=== PATIENT | female | born 1945 | race Caucasian/White ===

== ENCOUNTER 2017-03-20 19:46 | Inpatient (IN) | payer BC, OTHER ==
[~2017-03-20] VITALS: Ht 153.7 cm; Wt 57.1 kg
[2017-03-20] MEDS ORDERED: SODIUM CHLORIDE 0.9% 1000ML 500 ML IV STA (20:08)
[2017-03-20] MEDS ORDERED: DILTIAZEM BOLUS / DRIP IV STA (20:08)
--- NOTE | 2017-03-20 20:17 | EMERGENCY ROOM VISIT NOTE ---
History Report prepared by Lew: Charanjit Yeh Under the Supervision of: Dr. Ed Milton M.D. First contact with patient: 20:01 Chief Complaint: CARDIAC ASSESSMENT Stated Complaint: A FIB/A FLUTTER-FAINT History of Present Illness The patient is a 71 year old female who presents to the Emergency Room with complaints of worsening cardiac problems that began recently. Patient states she has a "sensation" in her upper chest that began this morning. She states that the "sensation" has been waxing and waning but has been more present lately. She has associated symptoms of dizziness and shortness of breath. She states that the shortness of breath goes away when she gets up and moves around. Patient denies having any chest pain. Patient denies a history of heart attacks. Patient adds that she had a cardiac ablation procedure done 2 days ago due to a history of atrial fibrillation and atrial flutter. She states the procedure was done at [facility]. Patient states she had no noted problems with the procedure. She adds that she has had problems with atrial fibrillation and atrial flutter for the past 5 years. She states she currently takes Xarelto , Norvasc, and a half dose of thyroid medication. She adds that she has not taken Rythmol for 1 day. She denies having a current PCP or welcome desk agent in the area. Patient adds that she and her are moving to [place] this week. Patient denies any medication allergies. Source of History: patient Onset: Recent Position: chest Timing: worsening Associated Symptoms: + SOB Note: Patient has dizziness. She denies chest pain. Review of Systems See HPI for pertinent positives & negatives. A total of 10 systems reviewed and were otherwise negative. Past Medical & Surgical Medical Problems: (1) Tachycardia Surgical Problems: (1) Status post ablation of atrial fibrillation Family History No pertinent family medical history. Social History Smoking Status: Former Smoker Current/Historical Medications Scheduled Amlodipine (Norvasc), 5 MG PO DAILY Methimazole (Methimazole ), 2.5 MG PO BID Rivaroxaban (Xarelto), 1 TAB PO QPM Allergies Coded Allergies: BEE STING (Unverified Allergy, Intermediate, ., 03/20/17) Physical Exam Vital Signs Date Time Temp Pulse Resp B/P (MAP) Pulse Ox O2 Delivery O2 Flow Rate FiO2 03/20/17 22:29 103 123/87 03/20/17 21:55 102 16 127/75 03/20/17 21:09 118 18 124/81 03/20/17 20:41 0 03/20/17 20:40 85 03/20/17 20:40 84 16 119/69 03/20/17 20:14 106 18 136/62 98 Room Air 03/20/17 20:12 98 Room Air 03/20/17 19:51 36.8 131 18 158/73 97 Room Air Physical Exam GENERAL: Patient is in no acute distress. HEENT: No acute trauma, normocephalic atraumatic, mucous membranes moist, no nasal congestion, no scleral icterus. NECK: No stridor, no adenopathy, no meningismus, trachea is midline. LUNGS: Clear to auscultation bilaterally, no wheeze, no rhonchi, breath sounds equal. HEART: Irregular rhythm, tachycardia, no murmurs ABDOMEN: Soft, nontender, bowel sounds positive, no hernias, no peritonitis. EXTREMITIES: No cyanosis or edema, full range of motion of all the joints without pain or difficulty, no signs for acute trauma. NEUROLOGIC: Oriented x 3, no acute motor or sensory deficits, no focal weakness. SKIN: No rash, no jaundice, no diaphoresis. Medical Decision & Procedures ER Provider Diagnostic Interpretation: Radiology results as stated below per my review and radiologist interpretation: CHEST ONE VIEW PORTABLE HISTORY: EVALUATE ALTERED MENTAL STATUS/WEAKNESS COMPARISON: None. FINDINGS: The lungs are clear. Cardiac silhouette is normal in size. No pleural effusions. No pneumothorax. 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 IMPRESSION: No acute process. Electronically signed by: Petar Tena M.D. 03/20/2017 8:39 PM Laboratory Results 03/20/17 20:05 Red Blood Count 3.64, Mean Corpuscular Volume 99.2, Mean Corpuscular Hemoglobin 34.3, Mean Corpuscular Hemoglobin Concent 34.6, Mean Platelet Volume 10.9, Neutrophils (%) (Auto) 60.0, Lymphocytes (%) (Auto) 23.7, Monocytes (%) (Auto) 13.0, Eosinophils (%) (Auto) 2.8, Basophils (%) (Auto) 0.2, Neutrophils # (Auto ) 6.73, Lymphocytes # (Auto) 2.65, Monocytes # (Auto) 1.46, Eosinophils # (Auto ) 0.31, Basophils # (Auto) 0.02 03/20/17 20:05 Test 03/20/17 20:05 White Blood Count 11.20 K/uL (4.8-10.8) Red Blood Count 3.64 M/uL (4.2-5.4) Hemoglobin 12.5 g/dL (12.0-16.0) Hematocrit 36.1 % (37-47) Mean Corpuscular Volume 99.2 fL (80-100) Mean Corpuscular Hemoglobin 34.3 pg (25-34) Mean Corpuscular Hemoglobin Concent 34.6 g/dl (32-36) Platelet Count 187 K/uL (130-400) Mean Platelet Volume 10.9 fL (7.4-10.4) Neutrophils (%) (Auto) 60.0 % Lymphocytes (%) (Auto) 23.7 % Monocytes (%) (Auto) 13.0 % Eosinophils (%) (Auto) 2.8 % Basophils (%) (Auto) 0.2 % Neutrophils # (Auto) 6.73 K/uL (1.4-6.5) Lymphocytes # (Auto) 2.65 K/uL (1.2-3.4) Monocytes # (Auto) 1.46 K/uL (0.11-0.59) Eosinophils # (Auto) 0.31 K/uL (0-0.5) Basophils # (Auto) 0.02 K/uL (0-0.2) RDW Standard Deviation 45.5 fL (36.4-46.3) RDW Coefficient of Variation 12.6 % (11.5-14.5) Immature Granulocyte % (Auto) 0.3 % Immature Granulocyte # (Auto) 0.03 K/uL (0.00-0.02) Prothrombin Time 13.5 SECONDS (9.0-12.0) Prothromb Time International Ratio 1.3 (0.9-1.1) Activated Partial Thromboplast Time 34.3 SECONDS (21.0-31.0) Partial Thromboplastin Ratio 1.3 Anion Gap 7.0 mmol/L (3-11) Est Creatinine Clear Calc Drug Dose 66.0 ml/min Estimated GFR () 105.3 Estimated GFR (Non- 90.9 BUN/Creatinine Ratio 11.6 (10-20) Calcium Level 8.9 mg/dl (8.5-10.1) Magnesium Level 1.9 mg/dl (1.8-2.4) Total Bilirubin 0.5 mg/dl (0.2-1) Aspartate Amino Transf (AST/SGOT) 33 U/L (15-37) Alanine Aminotransferase (ALT/SGPT) 23 U/L (12-78) Alkaline Phosphatase 100 U/L (45-117) Troponin I 1.380 ng/ml (0-0.045) Total Protein 7.0 gm/dl (6.4-8.2) Albumin 3.6 gm/dl (3.4-5.0) Globulin 3.4 gm/dl (2.5-4.0) Albumin/Globulin Ratio 1.1 (0.9-2) Thyroid Stimulating Hormone (TSH) 0.496 uIu/ml (0.300-4.500) Free Thyroxine 1.34 ng/dl (0.80-1.60) Laboratory results reviewed by me. Medications Administered Medications (Trade) Dose Ordered Sig/Carmelo Route Start Time Stop Time Status Last Admin Dose Admin Sodium Chloride 500 ml @ 999 mls/hr Q31M STAT IV 03/20/17 20:08 03/20/17 20:38 DC 03/20/17 20:39 999 MLS/HR Diltiazem HCl (Cardizem Inj) 10 mg TODAY@2030 IV 03/20/17 20:30 03/20/17 20:31 DC 03/20/17 20:37 10 MG Diltiazem HCl 125 mg/Dextrose 125 ml @ 0 mls/hr Q0M PRN IV 03/20/17 20:30 04/19/17 20:29 03/20/17 20:38 5 MLS/HR ECG Indication: tachycardia Rate (beats per minute): 103 Rhythm: atrial fibrillation, atrial flutter Findings: nonspecific-ST abn, no acute ischemic change ED Course 2004: The patient was evaluated in room C6. A complete history and physical exam was performed. 2007: Sodium Chloride 500 ml @ 999 mls/hr IV, Diltiazem HCl 125mg/Dextrose 125ml @ 0mls/hr, Diltazem HCl 10mg IV 2024: Monitor exchange clerk documented a several second pause on the monitor consistent with asystole. 2049: I reassessed the patient and updated her on her findings. I informed that she will be moved to another room to put spacer pads on. I added that I will be calling her welcome desk agent as well. 2214: Upon reexamination the patient will be further evaluated. I discussed results and treatment plan with the patient. She verbalizes agreement and understanding. I spoke with Dr. Low of [facility]. We discussed the patient's results and findings. The patient will be evaluated by Dr. Low for further management. Medical Decision Differential diagnosis includes A. fib or a flutter, SVT, dysrhythmia, NC, electrolyte imbalance, dehydration or anemia. The patient presents with palpitations. She appeared to be in intermittent A. fib/A flutter on the monitor. There is a mild leukocytosis, this could be consistent with infection or possibly the stress of her situation. No concerning anemia. No significant electrolyte abnormality, kidney failure or hepatitis. The patient appears to be in a euthyroid state. Chest film does not show pneumonia or pneumothorax. EKG shows intermittent A. fib/A flutter with a rapid rate, no acute ischemia. Cardiac enzyme testing 1 did show an elevation, this could be consistent with cardiac injury or strain or consistent with just the recent ablation performed 2 days ago. The patient was tachycardic and symptomatic. She was given a bolus of IV diltiazem and then placed on a diltiazem drip. She developed long periods of asystole on this medication although, she remained awake. The medication was halted. She continued to have some asystolic pauses but they were shorter in length when the medication was no longer being infused. I discussed the case with cardiology. Transfer back to [place] was suggested. I spoke with the welcome desk agent at [place]. He did accept the patient but there were no beds at that hospital for the foreseeable future. A hospital stay at our facility was recommended for now. I discussed everything with the patient. I talked again with our cardiology services. I spoke with the on-call hospitalist as well. Admission/observation was advised. The case management team has been involved. The patient was aggressively managed. She has been doing well despite the intermittent A. fib/A flutter. We will hold on any rate lowering medications for now as she does worse with them. The patient will likely require a pacemaker in the near future. Apparently, this has already been discussed with her. She was having asystolic pauses at times in the past and, as result, did have a difficult time tolerating rate controlling medications. Medication Reconcilliation Current Medication List: was personally reviewed by me Blood Pressure Screening Patient's blood pressure: Elevated blood pressure Blood pressure disposition: Elevated BP felt to be situational Consults Time Called: 2058 Consulting Physician: Dr. Drew - [employer] Returned Call: [phone] Discussed the patient's case. Dr. Drew recommended stopping the Cardizem drip. He added that the patient should be transferred to [place] for hospitalization. Additional Consults: Time Called: 2144 Consulted Physician: [place] [employer] Returned Call: [phone] Additional Comments: Discussed the patient's case. The patient will be evaluated for further management. Time Called: 2157 Consulted Physician: Dr. Rajendra Chinchilla [employer] Returned Call: 2199 Additional Comments: Discussed the patient's case. The patient will be evaluated for further management. Additional Consults: 2209: Dr. Devante Enriquez Hospitalist Comments: Discussed the patient's case. The patient will be evaluated for further management. Impression Primary Impression: Atrial fibrillation Additional Impressions: Atrial flutter Bradyarrhythmia Elevated troponin Critical Care I have personally spent greater than 30 minutes of critical care time in the direct management of this patient. This includes bedside care, interpretation of diagnostic studies and testing, discussion with consultants, the patient, and family members, and other required patient management activities. This 30 minutes is in excess of all separately billable procedures. Scribe Attestation The scribe's documentation has been prepared under my direction and personally reviewed by me in its entirety. I confirm that the note above accurately reflects all work, treatment, procedures, and medical decision making performed by me. Departure Information Dispostion Being Evaluated By Hospitalist Referrals Peterson Chang M.D. (PCP) Forms IMPORTANT VISIT INFORMATION Patient Instructions My [facility] Problem Qualifiers
[2017-03-20 20:24] LABS: BASO % 0.2 %; BASO ABS # 0.02 K/uL (0-0.2); EOS % 2.8 %; EOS ABS # 0.31 K/uL (0-0.5); HEMATOCRIT 36.1 % (37-47); HEMOGLOBIN 12.5 g/dL (12.0-16.0); IG# 0.03 K/uL (0.00-0.02); LYMPH % 23.7 %; LYMPH ABS # 2.65 K/uL (1.2-3.4); MEAN CELL VOLUME 99.2 fL (80-100); MEAN CORPUSCULAR HEMOGLOBIN 34.3 pg (25-34); MEAN CORPUSCULAR HGB CONC 34.6 g/dl (32-36); MEAN PLATELET VOLUME 10.9 fL (7.4-10.4); MONO ABS # 1.46 K/uL (0.11-0.59); NEUT ABS # 6.73 K/uL (1.4-6.5); PLATELET COUNT 187 K/uL (130-400); RED CELL DISTRIBUTION WIDTH CV 12.6 % (11.5-14.5); RED CELL DISTRIBUTION WIDTH SD 45.5 fL (36.4-46.3)
[2017-03-20] MEDS ORDERED: DILTIAZEM HCL INJ 125 MG in DEXTROSE 5% 100ML IV PRN (20:30)
[2017-03-20] MEDS ORDERED: DILTIAZEM HCL 5 MG/ML 5 ML VIAL BOLUS/OMNI IV SCH (20:30)
--- NOTE | 2017-03-20 20:40 | DIAGNOSTIC IMAGING REPORT ---
CHEST ONE VIEW PORTABLE HISTORY: EVALUATE ALTERED MENTAL STATUS/WEAKNESS COMPARISON: None. FINDINGS: The lungs are clear. Cardiac silhouette is normal in size. No pleural effusions. No pneumothorax. 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 IMPRESSION: No acute process. Electronically signed by: Petar Tena M.D. 03/20/2017 8:39 PM Dictated Date/Time: 03/20/2017 8:39 PM
[2017-03-20 20:41] LABS: ALBUMIN 3.6 gm/dl (3.4-5.0); CALCIUM 8.9 mg/dl (8.5-10.1); CREATININE 0.63 mg/dl (0.60-1.20); POTASSIUM 3.8 mmol/L (3.5-5.1)
[2017-03-20 20:43] LABS: INR 1.3 (0.9-1.1); PTT PATIENT 34.3 SECONDS (21.0-31.0)
[2017-03-20] MEDS ORDERED: AMLO-110 PO (21:11)
[2017-03-20] MEDS ORDERED: RIVA1TAB PO (21:11)
[2017-03-20] MEDS ORDERED: METH-589 PO (21:11)
--- NOTE | 2017-03-20 22:33 | History and Physical ---
History & Physical Date & Time of Service: Mar 20, 2017 at 22:32 Chief Complaint: A Fib/A Flutter-Faint Primary Care Physician: Peterson Chang M.D. History of Present Illness Source: patient This is a 71 year old Female who has generally received medical care with [facility] who presents to the ED on 03/20/17 2 days after ablation for history of atrial fibrillation/flutter which was performed by Dr. Stewart Matamoros ) who presents with symptoms of "sensation" in her upper chest that began in the morning and associated symptoms of dizziness and shortness of breath. Found to be in afib RVR. with heart rate 131 on presentation. EKG shows intermittent A. fib/A flutter with a rapid rate, no acute ischemia. Troponin elevated 1.38 possibly due to cardiac injury or strain or recent ablation.Patient was given Diltiazem IV 10 mg x 1 and then Diltizaem drip with heart rate decreasing however was noted to have pauses on the telemetry monitoring but patient remained awake. There were attempts made for hospital transfer to [place] but transfer could not be done due to lack of hospital beds ED physician then contacted [facility] piano case and bench assembler Dr. Nagi Drew who advised that patient should not receive further pharmacological interventions with the heart rate at this time. ED physician communicated with hospitalist physician that parameters to intervene would be if the heart rate was over 150 beats per minute or if patient has chest pain. When patient assessed by hospitalist for admission, patient was asymptomatic but reports that she previously she was feeling palpitations when her rate was very elevated. During this assessment patient's heart rate was still irregular but low 100s beats per minute. She was not in distress and speaking comfortably on room air followed directions of the physical exam. She states she currently takes Xarelto, Norvasc, RYTHMOL (propafenone hydrochloride), Tapazole 2.5 mg BID Social History Smoking Status: Former Smoker Allergies Coded Allergies: BEE STING (Unverified Allergy, Intermediate, ., 03/20/17) Home Medications Scheduled Amlodipine (Norvasc), 5 MG PO DAILY Methimazole (Methimazole ), 2.5 MG PO BID Rivaroxaban (Xarelto), 1 TAB PO QPM Review of Systems Constitutional: No fever Eyes: No worsening of vision, No eye pain, No redness, No diplopia ENT: No hearing loss, No nasal symptoms, No sore throat, No trouble swallowing Respiratory: No cough, No sputum, No shortness of breath Cardiovascular: + palpitations, No chest pain, No edema Abdomen: No pain, No nausea, No vomiting Musculoskeletal: No joint pain, No muscle pain, No swelling, No calf pain Genitourinary - Female: No dysuria Neurologic: No paralysis, No numbness/tingling Psychiatric: No substance abuse Endocrine: No fatigue Hematologic / Lymphatic: No night sweats Integumentary: No rash, No itch Physical Exam Vital Signs Date Time Temp Pulse Resp B/P (MAP) Pulse Ox O2 Delivery O2 Flow Rate FiO2 03/20/17 22:29 103 123/87 03/20/17 21:55 102 16 127/75 03/20/17 21:09 118 18 124/81 03/20/17 20:41 0 03/20/17 20:40 85 03/20/17 20:40 84 16 119/69 03/20/17 20:14 106 18 136/62 98 Room Air 03/20/17 20:12 98 Room Air 03/20/17 19:51 36.8 131 18 158/73 97 Room Air General Appearance: no apparent distress Head: normocephalic, atraumatic Eyes: normal inspection, EOMI, sclerae normal ENT: normal ENT inspection, hearing grossly normal, pharynx normal Neck: supple, no adenopathy, thyroid normal, no JVD, trachea midline Respiratory/Chest: chest non-tender, lungs clear, normal breath sounds, no respiratory distress, no accessory muscle use Cardiovascular: no edema, normal peripheral pulses, + tachycardia, + irregularly irregular Abdomen/GI: normal bowel sounds, non tender, soft, no organomegaly, no pulsatile mass Back: normal inspection, no muscle spasm, normal range of motion Extremities/Musculoskelatal: normal inspection, no calf tenderness, no pedal edema, normal range of motion, non-tender Neurologic/Psych: no motor/sensory deficits, alert, normal mood/affect, oriented x 3 Skin: normal color, warm/dry, no rash Diagnostics Laboratory Results Results Past 24 Hours Test 03/20/17 20:05 Range/Units White Blood Count 11.20 4.8-10.8 K/uL Red Blood Count 3.64 4.2-5.4 M/uL Hemoglobin 12.5 12.0-16.0 g/dL Hematocrit 36.1 37-47 % Mean Corpuscular Volume 99.2 80-100 fL Mean Corpuscular Hemoglobin 34.3 25-34 pg Mean Corpuscular Hemoglobin Concent 34.6 32-36 g/dl Platelet Count 187 130-400 K/uL Mean Platelet Volume 10.9 7.4-10.4 fL Neutrophils (%) (Auto) 60.0 % Lymphocytes (%) (Auto) 23.7 % Monocytes (%) (Auto) 13.0 % Eosinophils (%) (Auto) 2.8 % Basophils (%) (Auto) 0.2 % Neutrophils # (Auto) 6.73 1.4-6.5 K/uL Lymphocytes # (Auto) 2.65 1.2-3.4 K/uL Monocytes # (Auto) 1.46 0.11-0.59 K/uL Eosinophils # (Auto) 0.31 0-0.5 K/uL Basophils # (Auto) 0.02 0-0.2 K/uL RDW Standard Deviation 45.5 36.4-46.3 fL RDW Coefficient of Variation 12.6 11.5-14.5 % Immature Granulocyte % (Auto) 0.3 % Immature Granulocyte # (Auto) 0.03 0.00-0.02 K/uL Prothrombin Time 13.5 9.0-12.0 SECONDS Prothromb Time International Ratio 1.3 0.9-1.1 Activated Partial Thromboplast Time 34.3 21.0-31.0 SECONDS Partial Thromboplastin Ratio 1.3 Sodium Level 132 136-145 mmol/L Potassium Level 3.8 3.5-5.1 mmol/L Chloride Level 99 98-107 mmol/L Carbon Dioxide Level 26 21-32 mmol/L Anion Gap 7.0 3-11 mmol/L Blood Urea Nitrogen 7 7-18 mg/dl Creatinine 0.63 0.60-1.20 mg/dl Est Creatinine Clear Calc Drug Dose 66.0 ml/min Estimated GFR () 105.3 Estimated GFR (Non- 90.9 BUN/Creatinine Ratio 11.6 10-20 Random Glucose 143 70-99 mg/dl Calcium Level 8.9 8.5-10.1 mg/dl Magnesium Level 1.9 1.8-2.4 mg/dl Total Bilirubin 0.5 0.2-1 mg/dl Aspartate Amino Transf (AST/SGOT) 33 15-37 U/L Alanine Aminotransferase (ALT/SGPT) 23 12-78 U/L Alkaline Phosphatase 100 45-117 U/L Troponin I 1.380 0-0.045 ng/ml Total Protein 7.0 6.4-8.2 gm/dl Albumin 3.6 3.4-5.0 gm/dl Globulin 3.4 2.5-4.0 gm/dl Albumin/Globulin Ratio 1.1 0.9-2 Thyroid Stimulating Hormone (TSH) 0.496 0.300-4.500 uIu/ml Free Thyroxine 1.34 0.80-1.60 ng/dl Diagnostic Radiology CXR: The lungs are clear. Cardiac silhouette is normal in size. No pleural effusions. No pneumothorax. 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 Stewart Matamoros ) who presents with symptoms of "sensation" in her upper chest that began in the morning and associated symptoms of dizziness and shortness of breath. Found to be in afib RVR. with heart rate 131 on presentation. EKG shows intermittent A. fib/A flutter with a rapid rate, no acute ischemia. Troponin elevated 1.38 possibly due to cardiac injury or strain or recent ablation.Patient was given Diltiazem IV 10 mg x 1 and then Diltizaem drip with heart rate decreasing however was noted to have pauses on the telemetry monitoring but patient remained awake. There were attempts made for hospital transfer to [place] but transfer could not be done due to lack of hospital beds ED physician then contacted [facility] piano case and bench assembler Dr. Nagi Drew who advised that patient should not receive further pharmacological interventions with the heart rate at this time. ED physician communicated with hospitalist physician that parameters to intervene would be if the heart rate was over 150 beats per minute or if patient has chest pain. When patient assessed by hospitalist for admission, patient was asymptomatic but reports that she previously she was feeling palpitations when her rate was very elevated. During this assessment patient's heart rate was still irregular but low 100s beats per minute. She was not in distress and speaking comfortably on room air followed directions of the physical exam. -hold rate control medications for now, hold outpatient RYTHMOL (propafenone hydrochloride) for now -telemetry monitoring -initial troponin elevated possibly due to cardiac injury or strain or recent ablation, trend troponin -further cardiology recommendations appreciated -NPO after midnight except medications/ice chips/sips in case cardiology interventions needed such as pace maker -hold home dose of Xarelto for now as possibly need pacemaker placement -continue home dose Norvasc for blood pressure -continue Tapazole 2.5 mg BID for history of hyperthyroidism, TSH is 0.496 and free T4 1.34, will check total T4 but thyroid labs appear generally within acceptable reference ranges of normal -denies drug allergies Full Code Dr. Stewart Matamoros ([phone]) [facility] Cardiology Dr. Peterson Mccollum [facility] primary acre family member [phone] Level of Care Telemetry Resuscitation Status FULL RESUSCITATION
[2017-03-20 23:15] VITALS: BP 135/72; PULSE 103; TEMP 36.9; O2SAT 96; Ht 153.7 cm; Wt 57.1 kg
[2017-03-21] VITALS (8 sets, daily range): BP systolic 104–137; BP diastolic 66–71; PULSE 71–113; TEMP 36.6–37.3; O2SAT 94–97
[2017-03-21 02:26] LABS: BASO % 0.2 %; BASO ABS # 0.02 K/uL (0-0.2); EOS % 4.4 %; HEMATOCRIT 34.7 % (37-47); HEMOGLOBIN 11.8 g/dL (12.0-16.0); IG# 0.02 K/uL (0.00-0.02); LYMPH % 28.1 %; LYMPH ABS # 2.58 K/uL (1.2-3.4); MEAN CELL VOLUME 99.4 fL (80-100); MEAN CORPUSCULAR HEMOGLOBIN 33.8 pg (25-34); MEAN PLATELET VOLUME 10.4 fL (7.4-10.4); MONO % 16.8 %; MONO ABS # 1.54 K/uL (0.11-0.59); NEUT % 50.3 %; NEUT ABS # 4.63 K/uL (1.4-6.5); PLATELET COUNT 165 K/uL (130-400); RED CELL DISTRIBUTION WIDTH CV 12.5 % (11.5-14.5); RED CELL DISTRIBUTION WIDTH SD 45.4 fL (36.4-46.3); WHITE BLOOD COUNT 9.19 K/uL (4.8-10.8)
[2017-03-21 03:17] LABS: ALBUMIN 3.1 gm/dl (3.4-5.0); CALCIUM 8.3 mg/dl (8.5-10.1); CREATININE 0.58 mg/dl (0.60-1.20); POTASSIUM 3.9 mmol/L (3.5-5.1); TOTAL PROTEIN 6.1 gm/dl (6.4-8.2)
[2017-03-21] MEDS: METHIMAZOLE 5 MG TAB PO SCH ×2 (08:12→20:10)
[2017-03-21] MEDS ORDERED: PNEUMOCOCCAL POLYSACCHARIDES 25 MCG/0.5 ML VIAL/SYR IM. ONE (09:00)
[2017-03-21] MEDS ORDERED: PNEUMOCOCCAL ADMINISTRATION CHARGE ONE (09:00)
[2017-03-21] MEDS ORDERED: ENOXAPARIN 40 MG/0.4 ML SYR SQ SCH (09:00)
[2017-03-21] MEDS: AMLODIPINE BESYLATE 5 MG TAB PO SCH ×2 (09:00→20:10)
--- NOTE | 2017-03-21 09:01 | ECHOCARDIOGRAM REPORT ---
*NOTICE TO RECEIVING REPUBLICAN AGENCY This information is strictly Confidential and protected under [place] law. [place] law prohibits you from making any further disclosure of this information unless further disclosure is expressly permitted by the written consent of the person to whom it pertains or is authorized by law. A general authorization for the release of medical or other information is not sufficient for this purpose. Hospital accepts no responsibility if the information is made available to any other person, INCLUDING THE PATIENT. Interpretation Summary * Name: ILEANA MOYER I Study Date: 03/21/2017 06:21 AM BP: 128/68 mmHg * Patient Location: 2\S\S229\S\1 HR: 101 * : 1945 (M/d/y) Gender: Female Height: 61 in * Age: 71 yrs Ethnicity: CA Weight: 119 lb * Ordering Physician: Matias Low * Referring Physician: Self, Referred * Performed By: Yadi Mcmillan RCS * * Reason For Study: A-FIB / TACHY S/P ABLATION * BSA: 1.5 m2 * -- Conclusions -- * Normal LV chamber size with moderate concentric LVH. * Normal LV systolic function, EF 60-65%. * No segmental left ventricular wall motion abnormalities are noted. * Aortic valve sclerosis mild, without significant aortic valvular stenosis. * Borderline left atrial enlargement. * Small, loculated anterior pericardial effusion adjacent to the right atrium. No hemodynamic significance. * Intact interatrial septum. Procedure Details * A complete two-dimensional transthoracic echocardiogram was performed (2D, M-mode, Doppler and color flow Doppler). * A saline contrast injection was performed to assess for cardiac shunting. * The injection was performed through an intravenous line in the right arm. * The attending nurse who injected the saline contrast was TRISTAN DAVISON, RN. * A total of 30 cc of agitated saline was given. Left Ventricle * The left ventricle is normal in size. * There is moderate concentric left ventricular hypertrophy. * Left ventricular systolic function is normal. * No segmental left ventricular wall motion abnormalities are noted. * Ejection Fraction = 60-65%. * The left ventricular wall motion is normal at rest. Right Ventricle * The right ventricular cavity size is normal (basal dimension <4.2 cm in right ventricular apical 4-chamber view). * The right ventricular systolic function is normal as assessed by tricuspid annular plane systolic excursion (TAPSE) (normal >1.5 cm). Atria * Borderline left atrial enlargement. * Right atrial size is normal. * No ASD detected; PFO is not assessed. Mitral Valve * The mitral valve is normal in structure and function. Tricuspid Valve * The tricuspid valve is normal in structure and function. Aortic Valve * The aortic valve is trileaflet. * Aortic valve sclerosis mild, without significant aortic valvular stenosis. * There is no significant aortic regurgitation. Pulmonic Valve * The pulmonary valve is not well seen, but the Doppler examination is normal without significant regurgitation or stenosis. Pericardium/Pleural * Small, loculated anterior pericardial effusion adjacent to the right atrium. No hemodynamic significance. MMode 2D Measurements and Calculations IVSd 1.1 cm IVSs 1.7 cm LVIDd 3.5 cm LVIDs 1.8 cm LVPWd 1.2 cm LVPWs 1.6 cm IVS/LVPW 0.88 FS 47.5 % EDV(Teich) 50.0 ml ESV(Teich) 10.1 ml EF(Teich) 79.9 % EDV(cubed) 42.0 ml ESV(cubed) 6.1 ml EF(cubed) 85.5 % % IVS thick 60.7 % % LVPW thick 30.3 % LV mass(C)d 126.6 grams LV mass(C)dI 83.6 grams/m\S\2 LV mass(C)s 109.8 grams LV mass(C)sI 72.5 grams/m\S\2 SV(Teich) 40.0 ml SI(Teich) 26.4 ml/m\S\2 SV(cubed) 35.9 ml SI(cubed) 23.7 ml/m\S\2 Ao root diam 2.5 cm Ao root area 4.8 cm\S\2 ACS 1.6 cm LA dimension 2.9 cm LA/Ao 1.2 LVOT diam 1.9 cm LVOT area 2.8 cm\S\2 LVAd ap4 26.2 cm\S\2 LVLd ap4 7.2 cm EDV(MOD-sp4) 77.3 ml EDV(sp4-el) 80.7 ml LVAs ap4 17.7 cm\S\2 LVLs ap4 6.5 cm ESV(MOD-sp4) 40.8 ml ESV(sp4-el) 40.7 ml EF(MOD-sp4) 47.2 % EF(sp4-el) 49.6 % LVAd ap2 21.6 cm\S\2 LVLd ap2 6.7 cm EDV(MOD-sp2) 57.8 ml EDV(sp2-el) 59.3 ml LVAs ap2 15.5 cm\S\2 LVLs ap2 6.1 cm ESV(MOD-sp2) 32.4 ml ESV(sp2-el) 33.6 ml EF(MOD-sp2) 43.8 % EF(sp2-el) 43.4 % LVLd %diff -8.57 % EDV(MOD-bp) 69.7 ml LVLs %diff -6.69 % ESV(MOD-bp) 37.0 ml EF(MOD-bp) 46.9 % SV(MOD-sp4) 36.5 ml SI(MOD-sp4) 24.1 ml/m\S\2 SV(MOD-sp2) 25.3 ml SI(MOD-sp2) 16.7 ml/m\S\2 SV(MOD-bp) 32.7 ml SI(MOD-bp) 21.6 ml/m\S\2 SV(sp4-el) 40.0 ml SI(sp4-el) 26.4 ml/m\S\2 SV(sp2-el) 25.7 ml SI(sp2-el) 17.0 ml/m\S\2 Doppler Measurements and Calculations MV E max george 132.1 cm/sec MV A max george 78.2 cm/sec MV E/A 1.7 MV P1/2t max george 167.4 cm/sec MV P1/2t 81.7 msec MVA(P1/2t) 2.7 cm\S\2 MV dec slope 600.1 cm/sec\S\2 MV dec time 0.19 sec Ao V2 max 178.5 cm/sec Ao max PG 12.7 mmHg Ao max PG (full) 8.0 mmHg SONDRA(V,A) 1.7 cm\S\2 SONDRA(V,D) 1.7 cm\S\2 LV V1 max PG 4.7 mmHg LV V1 max 108.9 cm/sec PA V2 max 94.0 cm/sec PA max PG 3.5 mmHg TR max george 272.6 cm/sec
--- NOTE | 2017-03-21 10:49 | CARDIOLOGY CONSULTATION ---
DATE OF CONSULTATION: 03/21/2017 CONSULTATION REQUESTED BY: Dr. Low. REASON FOR CONSULTATION: Tachybrady syndrome. HISTORY OF PRESENT ILLNESS: Mrs. Durham is a very pleasant 71-year-old woman who just recently moved to [facility]. She was previously following with a neighborhood worker in [place], Dr. Stewart Matamoros for a history of atrial fibrillation and atrial flutter. She recently underwent an atrial fibrillation and pulmonary vein isolation on the of this month. The day after the ablation, she started feeling back to her normal self and started having recurrent bouts of palpitations, feeling her heart racing and pauses. When she has a pause, she can feel it and she states she feels a little lightheaded and a little anxious for a moment and then gets up and walks around. Again, she gets slightly lightheaded with it, but no dizziness and she has never syncopized with it. She was told by her previous neighborhood worker that should the ablation not be successful, she would likely require pacemaker placement, but she was holding off as long she could. Upon presentation to the Emergency Department, she was rather tachycardic and she was given IV diltiazem with significant bradycardia and sinus pauses. Initially, the thought was to transfer the patient to [place], but again she is now establishing care here in the [facility] and no beds were available at [place], so she was admitted to telemetry overnight. Overnight, her rates continued to fluctuate anywhere between sinus rhythm, sinus tachycardia, atrial fibrillation and significant sinus pauses up to 3 seconds. Otherwise, she states that she is feeling well. Denies any chest pain, shortness of breath, dizziness or syncope. She states that she is very good about taking her medications at home. PAST SURGICAL HISTORY: Recent pulmonary vein isolation on 03/18/2017. PAST MEDICAL ILLNESSES: 1. Tachybrady syndrome. 2. Paroxysmal atrial fibrillation and flutter, status post ablation and failed trials of Rythmol. 3. Urinary issues. 4. Hypertension. FAMILY HISTORY: Noncontributory. SOCIAL HISTORY: The patient is a former smoker, quit 8 years ago. Drinks occasional alcohol. Denies any recreational drug use. She is . She lives at home with her . He is currently undergoing chemotherapy and they are moving from the [facility] to [facility] to down size. 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 She has 2 biological children, who are in good health. REVIEW OF SYSTEMS: As per HPI. All other review of systems reviewed and negative at this time. ALLERGIES: No known drug allergies. SHE IS ALLERGIC TO BEE STINGS. MEDICATIONS AN OUTPATIENT: 1. Amlodipine 5 mg daily. 2. Xarelto 20 mg daily. 3. Methimazole 2.5 mg b.i.d. PHYSICAL EXAMINATION: VITALS: Temperature 36.7, pulse 111, respiratory rate 12, and blood pressure 104/71. GENERAL: Awake, alert, and oriented x3, in no acute distress. HEENT: Normocephalic and atraumatic. Pupils are equal, round, and reactive to light and accommodation. Extraocular muscles intact. Anicteric sclerae. Moist mucous membranes. NECK: No JVD. No bruit. CARDIOVASCULAR: Irregularly irregular and fast. Unable to appreciate murmurs, rubs or gallops. PULMONARY: Clear to auscultation bilaterally. No rales, rhonchi, or wheezing. ABDOMEN: Bowel sounds x4. Soft. No rebound, guarding, or tenderness. No organomegaly. EXTREMITIES: No clubbing, cyanosis or edema. +2 pedal pulses bilaterally. SKIN: Warm and dry. TEST RESULTS: Normal LV chamber size with moderate concentric LVH, normal LV systolic function, EF 60%-65%. No segmental left ventricular wall motion abnormalities were noted. Mild aortic valve sclerosis without stenosis. Borderline left atrial enlargement. Small loculated anterior pericardial effusion adjacent to the right atrium without hemodynamic significance. Intact interatrial septum. Review of telemetry monitoring shows again sinus rhythm, sinus tachycardia, paroxysmal atrial fibrillation and sinus pauses up to 3 seconds. LABORATORY STUDIES OF SIGNIFICANCE: TSH of 0.5 with a free T4 of 1.3. Sodium 139, potassium 3.9, BUN 6, and creatinine 0.6. Troponin of 1.38 followed by 1.21. IMPRESSION: 1. Tachybrady syndrome. 2. Paroxysmal atrial fibrillation with rapid ventricular response. 3. Mildly elevated troponin level due to tachycardia. 4. History of failed pulmonary vein isolation. RECOMMENDATIONS: It was my pleasure to see Mrs. Durham in consultation today. The pathophysiology of tachybrady syndrome was discussed with the patient at great lengths today as well as the pros and cons of treatment options. She states that she is already prepared herself for pacemaker. She notes that she has been, it told has been necessary in the past and is now willing to proceed. So at this point, we will hold all AV dori blocking agents given her response and significant pauses. She will be made n.p.o. after midnight and her Xarelto will be held today and we will plan for dual chamber permanent pacemaker placement in the a.m. She will be made n.p.o. after midnight. After the permanent pacemaker placement, she will then be titrated further on medications to help reduce the elevated rates. In the meantime, we can expect her rates to be elevated, but again no AV dori blocking agents should be given.
--- NOTE | 2017-03-21 13:05 | Progress Note ---
Internal Med Progress Note Date of Service: Mar 21, 2017. Provider Documentation: SUBJECTIVE: The patient was seen and examined Admitted with Palpitation secondary to AF with RVR S/P recent failed Ablation therapy for AF Denies any symptoms this AM OBJECTIVE: Vital Signs-as noted below Exam: General-Npo distress at rest Eyes-normal ENT-normal Neck-supple Lungs-Clear to ausucltate bilaterally Heart-Regular Abdomen-Benign,no masses,bowel sound present Extremities-No edema Neuro-AAOx3 Lab data as noted below. ASSESSMENT & PLAN: This is a 71 year old Female who has generally received medical care with [facility] who presents to the ED on 03/20/17 2 days after ablation for history of atrial fibrillation/flutter which was performed by Dr. Stewart Matamoros ([phone]) who presents with symptoms of "sensation" in her upper chest that began in the morning and associated symptoms of dizziness and shortness of breath. Found to be in afib RVR. with heart rate 131 on presentation. EKG shows intermittent A. fib/A flutter with a rapid rate, no acute ischemia. Troponin elevated 1.38 possibly due to cardiac injury or strain or recent ablation. Paroxysmal AF with RVR ,Failed Ablation Therapy Bradycardia secondary to use of any rate lowering medications Likely has Tachy Adam syndrome Appreciate cardiology input Hold any current Antiarrhythmic therapy and Xarelto PPM placement tomorrow Avoid giving any antiarrhythmic drugs NPO after midnight except medications/ice chips/sips in case cardiology interventions needed such as pace maker Increase Troponin -initial troponin elevated possibly due to cardiac injury or strain or recent ablation, trend troponin -Likely secondary to LV strain, -Doubt any ACS HTN -continue home dose Norvasc for blood pressure -BP is reasonably controlled Hyperthyroidism -continue Tapazole 2.5 mg BID for history of hyperthyroidism, TSH is 0.496 and free T4 1.34, will check total T4 but thyroid labs appear generally within acceptable reference ranges of normal DVT prophylaxis On Xarelto -on hold now Full Code Dr. Stewart Matamoros ([phone]) [facility] Cardiology Dr. Peterson Mccollum [facility] primary acre family member [phone] Vital Signs: Date Time Temp Pulse Resp B/P (MAP) Pulse Ox O2 Delivery O2 Flow Rate FiO2 03/21/17 12:17 97 Room Air 03/21/17 11:30 36.9 113 19 111/68 (82) 97 Room Air 03/21/17 08:00 Room Air 03/21/17 07:53 36.7 111 19 104/71 (82) 95 Room Air 03/21/17 04:00 Room Air 03/21/17 03:29 36.8 75 15 128/68 (88) 97 Room Air 03/21/17 00:00 Room Air 03/20/17 23:15 36.9 103 20 135/72 96 Room Air 03/20/17 23:06 77 14 134/77 95 03/20/17 22:29 103 123/87 03/20/17 21:55 102 16 127/75 03/20/17 21:09 118 18 124/81 03/20/17 20:41 0 03/20/17 20:40 85 03/20/17 20:40 84 16 119/69 03/20/17 20:14 106 18 136/62 98 Room Air 03/20/17 20:12 98 Room Air 03/20/17 19:51 36.8 131 18 158/73 97 Room Air Lab Results: Results Past 24 Hours Test 03/20/17 20:05 03/21/17 02:19 Range/Units White Blood Count 11.20 9.19 4.8-10.8 K/uL Red Blood Count 3.64 3.49 4.2-5.4 M/uL Hemoglobin 12.5 11.8 12.0-16.0 g/dL Hematocrit 36.1 34.7 37-47 % Mean Corpuscular Volume 99.2 99.4 80-100 fL Mean Corpuscular Hemoglobin 34.3 33.8 25-34 pg Mean Corpuscular Hemoglobin Concent 34.6 34.0 32-36 g/dl Platelet Count 187 165 130-400 K/uL Mean Platelet Volume 10.9 10.4 7.4-10.4 fL Neutrophils (%) (Auto) 60.0 50.3 % Lymphocytes (%) (Auto) 23.7 28.1 % Monocytes (%) (Auto) 13.0 16.8 % Eosinophils (%) (Auto) 2.8 4.4 % Basophils (%) (Auto) 0.2 0.2 % Neutrophils # (Auto) 6.73 4.63 1.4-6.5 K/uL Lymphocytes # (Auto) 2.65 2.58 1.2-3.4 K/uL Monocytes # (Auto) 1.46 1.54 0.11-0.59 K/uL Eosinophils # (Auto) 0.31 0.40 0-0.5 K/uL Basophils # (Auto) 0.02 0.02 0-0.2 K/uL RDW Standard Deviation 45.5 45.4 36.4-46.3 fL RDW Coefficient of Variation 12.6 12.5 11.5-14.5 % Immature Granulocyte % (Auto) 0.3 0.2 % Immature Granulocyte # (Auto) 0.03 0.02 0.00-0.02 K/uL Prothrombin Time 13.5 9.0-12.0 SECONDS Prothromb Time International Ratio 1.3 0.9-1.1 Activated Partial Thromboplast Time 34.3 21.0-31.0 SECONDS Partial Thromboplastin Ratio 1.3 Sodium Level 132 139 136-145 mmol/L Potassium Level 3.8 3.9 3.5-5.1 mmol/L Chloride Level 99 104 98-107 mmol/L Carbon Dioxide Level 26 30 21-32 mmol/L Anion Gap 7.0 5.0 3-11 mmol/L Blood Urea Nitrogen 7 6 7-18 mg/dl Creatinine 0.63 0.58 0.60-1.20 mg/dl Est Creatinine Clear Calc Drug Dose 66.0 72.5 ml/min Estimated GFR () 105.3 108.2 Estimated GFR (Non- 90.9 93.4 BUN/Creatinine Ratio 11.6 10.5 10-20 Random Glucose 143 96 70-99 mg/dl Calcium Level 8.9 8.3 8.5-10.1 mg/dl Magnesium Level 1.9 1.9 1.8-2.4 mg/dl Total Bilirubin 0.5 0.6 0.2-1 mg/dl Aspartate Amino Transf (AST/SGOT) 33 25 15-37 U/L Alanine Aminotransferase (ALT/SGPT) 23 19 12-78 U/L Alkaline Phosphatase 100 87 45-117 U/L Troponin I 1.380 1.210 0-0.045 ng/ml Total Protein 7.0 6.1 6.4-8.2 gm/dl Albumin 3.6 3.1 3.4-5.0 gm/dl Globulin 3.4 3.0 2.5-4.0 gm/dl Albumin/Globulin Ratio 1.1 1.0 0.9-2 Thyroid Stimulating Hormone (TSH) 0.496 0.300-4.500 uIu/ml Free Thyroxine 1.34 0.80-1.60 ng/dl Thyroxine (T4) 6.6 4.5-10.9 mcg/dl
[2017-03-21] MEDS ORDERED: RIVAROXABAN PO SCH (21:00)
[2017-03-22] VITALS (9 sets, daily range): BP systolic 106–157; BP diastolic 62–81; PULSE 74–89; TEMP 36.7–37.4; O2SAT 94–98
[2017-03-22 05:58] LABS: HEMATOCRIT 32.9 % (37-47); HEMOGLOBIN 11.7 g/dL (12.0-16.0); MEAN CELL VOLUME 99.7 fL (80-100); MEAN CORPUSCULAR HEMOGLOBIN 35.5 pg (25-34); MEAN CORPUSCULAR HGB CONC 35.6 g/dl (32-36); MEAN PLATELET VOLUME 10.9 fL (7.4-10.4); PLATELET COUNT 177 K/uL (130-400); RED CELL DISTRIBUTION WIDTH CV 12.6 % (11.5-14.5); RED CELL DISTRIBUTION WIDTH SD 46.2 fL (36.4-46.3); WHITE BLOOD COUNT 8.43 K/uL (4.8-10.8)
[2017-03-22 06:30] LABS: CALCIUM 8.7 mg/dl (8.5-10.1); CREATININE 0.42 mg/dl (0.60-1.20); PHOSPHORUS 3.4 mg/dl (2.5-4.9); POTASSIUM 3.7 mmol/L (3.5-5.1)
[2017-03-22] MEDS ORDERED: LIDOCAINE HCL 1% 20 ML VIAL ONE (07:20)
[2017-03-22] MEDS ORDERED: BACITRACIN 50000 UNIT VIAL ONE (07:20)
[2017-03-22] MEDS ORDERED: BUPIVACAINE 0.25% 30 ML VIAL ONE (07:20)
[2017-03-22] MEDS ORDERED: MIDAZOLAM HCL 5 MG/ML 1 ML VIAL ONE (08:04)
[2017-03-22] MEDS ORDERED: FENTANYL CITRATE INJ 50 MCG/1 ML 2 ML VIAL ONE (08:04)
[2017-03-22] MEDS ORDERED: CEFAZOLIN SOD 1 GM VIAL ONE (08:04)
--- NOTE | 2017-03-22 08:12 | History & Physical Bridge Note ---
H&P Re-Evaluation Bridge Note: I have examined the patient, reviewed the History & Physical and in the interval since the performance of the History & Physical I have noted the following changes of clinical significance: Pt s/p fib/flutter ablation in [place] but continues to have pAF with conversion pauses. Dr. Drew spoke with her EP from [place] who recommended a dual chamber pacemaker-but since [place] had no beds and the patient just moved to the area and is transferring all her care to [facility]. Pt for dual chamber pacemaker today.
--- NOTE | 2017-03-22 08:12 | Pre Sedation Assessment ---
Pre Sedation Assessment General Date of Sedation: Mar 22, 2017. Vital Signs Past 12 Hours Date Time Temp Pulse Resp B/P (MAP) Pulse Ox O2 Delivery O2 Flow Rate FiO2 03/22/17 07:12 36.7 83 18 110/62 (78) 96 Room Air 03/22/17 04:00 Room Air 03/22/17 00:00 Room Air 03/21/17 23:07 37.0 88 15 137/67 (90) 94 Room Air Review Cardiovascular: regular rate, rhythm Lungs: lungs clear Pre-Sedation Airway Assessment Smoking Status: Never Smoker Hx of Sleep Apnea: No Hx of difficult intubation: No Short Thick Neck: No Thyro-mental Distance: < or =3 Finger Breadths Oral Cavity: WNL Mallampati Classification: Class II ASA Classification: Class II NPO Status Date of Last Intake of Fluids: Mar 22, 2017 Time of Last Intake of Fluids: 0001 Date of Last Intake of Solids: Mar 21, 2017 Time of Last Intake of Solids: 1999 Procedure Planning Contraindications for Sedation: None Current Medications Reviewed: Yes Notes The planned sedation has been discussed with the patient. Informed Consent was obtained. I have identified the patient, determined the appropriateness of sedation and have assessed the patient immediately prior to the procedure. All medicine(s) and interventions are by my order.
[2017-03-22] MEDS: METHIMAZOLE 5 MG TAB PO SCH ×2 (09:00→20:54)
--- NOTE | 2017-03-22 10:24 | Progress Note ---
Internal Med Progress Note Date of Service: Mar 22, 2017. Provider Documentation: SUBJECTIVE: Seen and examine at bedside Had Pacemaker placement today Denies chest pain, SOB, dizziness, nausea Mild soreness at the PPM insertion site No other complaints OBJECTIVE: Vital Signs-as noted below Physical Exam: General Appearance:Moderately built and nourished, no apparent distress Head: normocephalic, Atraumatic Eyes: normal inspection, EOMI, PERRL Neck: supple, Trachea midline Respiratory/Chest: Normal breath sounds, CTA Cardiovascular: S1, S2, No murmur Abdomen/GI:Soft, Non tender, Bowel sounds present Extremities/Musculoskelatal:normal inspection, no edema Neurologic/Psych:grossly no focal neurological deficits Skin: normal color, warm Lab data as noted below. ASSESSMENT & PLAN: Patient is a 71 yr Female who presents to the ED on 03/20/17 2 days after ablation for history of atrial fibrillation/flutter which was performed by Dr. Stewart Matamoros ([phone]) who presents with symptoms of "sensation" in her upper chest associated with dizziness and shortness of breath. Patient was found to be in afib RVR. Tachybrady Syndrome Paroxysmal AF with RVR, S/P Ablation Therapy S/P Pacemaker placement on 03/22/17 Continue Metoprolol for rate control Appreciate cardiology input On Xarelto for anticoagulation Increase Troponin: Likely secondary to Tachycardia ECHO: No segmental left ventricular wall motion abnormalities HTN continue Norvasc, BB Hyperthyroidism continue Tapazole 2.5 mg BID TSH, free T4 :normal DVT px: On Xarelto Code Status: Full Code Disposition: Monitor in Tele Dr. Stewart Matamoros ([phone]) [facility] Dr. Peterson Mccollum [facility] primary [facility] Family member [phone] PROCEDURES: ECHO: * Normal LV chamber size with moderate concentric LVH. * Normal LV systolic function, EF 60-65%. * No segmental left ventricular wall motion abnormalities are noted. * Aortic valve sclerosis mild, without significant aortic valvular stenosis. * Borderline left atrial enlargement. * Small, loculated anterior pericardial effusion adjacent to the right atrium. No hemodynamic significance. * Intact interatrial septum. PPM placement on 03/22/17 Vital Signs: Date Time Temp Pulse Resp B/P (MAP) Pulse Ox O2 Delivery O2 Flow Rate FiO2 03/22/17 10:45 88 16 130/60 (83) 95 Room Air 03/22/17 10:40 Room Air 03/22/17 10:35 Room Air 03/22/17 10:30 85 16 138/88 (105) 96 Room Air 03/22/17 08:00 Room Air 03/22/17 07:12 36.7 83 18 110/62 (78) 96 Room Air 03/22/17 04:00 Room Air 03/22/17 00:00 Room Air 03/21/17 23:07 37.0 88 15 137/67 (90) 94 Room Air 03/21/17 20:00 Room Air 03/21/17 19:43 36.6 71 16 113/66 (82) 97 Room Air 03/21/17 16:40 96 Room Air 03/21/17 15:48 37.3 85 18 110/68 (82) 96 Room Air 03/21/17 12:17 97 Room Air 03/21/17 11:30 36.9 113 19 111/68 (82) 97 Room Air Lab Results: Results Past 24 Hours Test 03/22/17 05:12 Range/Units White Blood Count 8.43 4.8-10.8 K/uL Red Blood Count 3.30 4.2-5.4 M/uL Hemoglobin 11.7 12.0-16.0 g/dL Hematocrit 32.9 37-47 % Mean Corpuscular Volume 99.7 80-100 fL Mean Corpuscular Hemoglobin 35.5 25-34 pg Mean Corpuscular Hemoglobin Concent 35.6 32-36 g/dl RDW Standard Deviation 46.2 36.4-46.3 fL RDW Coefficient of Variation 12.6 11.5-14.5 % Platelet Count 177 130-400 K/uL Mean Platelet Volume 10.9 7.4-10.4 fL Sodium Level 139 136-145 mmol/L Potassium Level 3.7 3.5-5.1 mmol/L Chloride Level 105 98-107 mmol/L Carbon Dioxide Level 26 21-32 mmol/L Anion Gap 7.0 3-11 mmol/L Blood Urea Nitrogen 12 7-18 mg/dl Creatinine 0.42 0.60-1.20 mg/dl Est Creatinine Clear Calc Drug Dose 100.1 ml/min Estimated GFR () 120.4 Estimated GFR (Non- 103.8 BUN/Creatinine Ratio 28.7 10-20 Random Glucose 96 70-99 mg/dl Calcium Level 8.7 8.5-10.1 mg/dl Phosphorus Level 3.4 2.5-4.9 mg/dl Magnesium Level 2.0 1.8-2.4 mg/dl
[2017-03-22] MEDS ORDERED: METOPROLOL SUCC 25MG EXT REL TAB PO ONE (10:36)
[2017-03-22] MEDS ORDERED: POTASSIUM CHLORIDE 10 MEQ TABCR PO STA (10:36)
--- NOTE | 2017-03-22 10:54 | [facility] Post Operative Brief Note ---
Immediate Operative Summary Operative Date Mar 22, 2017. Pre-Operative Diagnosis sss, paf Post-Operative Diagnosis same Procedure(s) Performed dual chamber rate responsive pacemaker (RV lead over His bundle) under fluroscopic guidance, anatomical mapping of the His bundle Surgeon jose ramon lópez Tripe Scraper Surgeon(s) none Estimated Blood Loss <5cc Findings see official report Fluids (cc crystalloids) 250cc Specimens none Drains none Anesthesia 5mg versed and 100mg fentatnyl Complication(s) None Disposition PCU
--- NOTE | 2017-03-22 10:56 | Post Sedation Assessment ---
Post Sedation Assessment General Date of Sedation Mar 22, 2017. Vital Signs: Vital Signs Past 12 Hours Date Time Temp Pulse Resp B/P (MAP) Pulse Ox O2 Delivery O2 Flow Rate FiO2 03/22/17 10:45 88 16 130/60 (83) 95 Room Air 03/22/17 10:40 Room Air 03/22/17 10:35 Room Air 03/22/17 10:30 85 16 138/88 (105) 96 Room Air 03/22/17 08:00 Room Air 03/22/17 07:12 36.7 83 18 110/62 (78) 96 Room Air 03/22/17 04:00 Room Air 03/22/17 00:00 Room Air 03/21/17 23:07 37.0 88 15 137/67 (90) 94 Room Air Post Procedure Recovery Score Activity: (2) Moves 4 extremities * Respiration: (2) Deep breath/cough Circulation: (2) +/-20% PreAnes Value Consciousness: (2) Fully Awake Oxygen Saturation: (2) > 92% On Room Air Post Anesthesia Score: 10 Discharge Sedation Level of Care: Fast Track Phase II Post Sedation Plan On clinical assessment, the patient appears to have tolerated the sedation without complications. Patient is recovering as anticipated. Patient will continue to be monitored by nursing and may be discharged when sedation discharge criteria are met per below protocol. Upon Completions of procedure and additional 15 minutes continue every 5 minute vital signs and the P.A.R. score; then discharge to a Phase I or Fast Track to Phase II per the following guidelines: * Discharge Patient to appropriate Phase II area if PAR is 8 or greater or return to pre- procedure baseline. The post - procedure orders will be as directed. * If PAR score is less than 8 or not return to pre-procedure baseline then patient will follow Phase I monitoring till PAR is reached for Phase II. The Phase I may be done in procedure room or may call to secure a Phase I area. * If naloxone or flumazenil are used for reversal, hold in Phase I for an additional 60 -120 minutes before discharge to Phase II. Please call the Sedation Physician to re-evaluate and complete post-note for discharge to Phase II area. Do NOT discharge from procedure sedation or Phase 1 until post- sedation evaluation note is complete by procedure /sedation MD Sedation Discharge Instructions to be given to the patient at discharge to home.
[2017-03-22] MEDS ORDERED: ACETAMINOPHEN 325 MG TAB PO PRN (11:00)
--- NOTE | 2017-03-22 12:26 | OPERATIVE REPORT ---
DATE OF OPERATION: 03/22/2017 PREOPERATIVE DIAGNOSES: Sick sinus syndrome, paroxysmal atrial fibrillation and flutter. POSTOPERATIVE DIAGNOSES: Same. PROCEDURE: Dual chamber rate responsive implantable permanent pacemaker under fluoroscopic guidance with the right ventricular lead positioned over the His bundle along with anatomical electrocardiogram mapping of the His bundle. SURGEON: Dr. Janelle Hobbs. APPLIED RESEARCHER: None. ANESTHESIA: Monitored conscious sedation administered under my supervision by Ruy Hassan. Start time 08:38 and end time 10:30, a total of 5 mg of Versed and 100 mcg of fentanyl. INTRAVENOUS 250 mL. COMPLICATIONS: None. CONDITION: Stable. URINE OUTPUT: Not applicable. SPECIMENS: None. FINDINGS: None. DRAINS: None. BLOOD LOSS: Less than 5 mL. DICTATION ENDS HERE. I attest to the content of the Intraoperative Record and any orders documented therein. Any exception s are noted below.
--- NOTE | 2017-03-22 14:20 | OPERATIVE REPORT ---
DATE OF OPERATION: 03/22/2017 PREOPERATIVE DIAGNOSIS: Paroxysmal atrial fibrillation and atrial flutter, tachybrady syndrome. POSTOPERATIVE DIAGNOSIS: Same. PROCEDURE PERFORMED: Dual chamber rate responsive permanent pacemaker under fluoroscopic guidance along with anatomical electrogram mapping of the His bundle. SURGEON: Dr. Janelle Hobbs. ASSISTANTS: None. ANESTHESIA: Moderate conscious sedation administered under my supervision by Ruy Hassan. Start time 8:38, end time 10:30. Total of 5 mg of Versed, 100 mcg of fentanyl. INTRAVENOUS FLUIDS: 250 mL. BLOOD LOSS: Less than 10 mL. COMPLICATIONS: None. CONDITION: Stable. URINE OUTPUT: Not applicable. DRAINS: None. FINDINGS: See below. INDICATIONS: This 71-year-old female has a past medical history for paroxysmal atrial flutter and atrial fibrillation. She is status post a CTI and PVI ablation by Dr. Buzz Flannery in [place] last week, hypertension. She is currently on Xarelto and has failed Rythmol. Also has a history of urinary tract issues. She has had evidence of tachybrady syndrome and presented to the hospital with palpitations and found to be in atrial flutter/fibrillation and was having long conversion pauses so recommended a pacemaker. CONSENT: Consent was obtained prior to the patient going into the electrophysiology lab. The patient was informed of risks, benefits and alternatives to the procedure. Risks include but not limited to sudden cardiac , cardiac, or vascular accident, myocardial infarction, injury to the blood vessels, chamber of the heart, lungs, bleeding and infection. The patient understood these risks and agreed to the procedure as planned. Informed consent was obtained. DESCRIPTION OF THE PROCEDURE: The patient was brought electrophysiology lab in a fasting state. He was connected to continuous threat monitoring analyst. A timeout was performed to ensure patient's identity and procedure correctly. The patient was prepped and draped over the left infraclavicular space in normal surgical standard fashion. Moderate conscious sedation was given throughout the procedure for patient's comfort level. [place] precautions were maintained throughout the procedure. Ten mL of 1% lidocaine, bupivacaine mixture were given in the left deltopectoral groove. Incision was made in the left deltopectoral groove. Blunt dissection was performed down to identify the cephalic vein. The cephalic vein was identified and isolated using 0 silk ties. The vein was nicked with 11 blade and a guidewire was inserted without any resistance. A 7-Canadian sheath was inserted over the guidewire, the dilators were removed and 2 guidewires, 1 glide and 1 regular guidewire were inserted through the sheath to allow for retained venous access. The sheath was removed, flushed and dilator reinserted over and then the 7-Canadian sheath was inserted over the retained Glidewire without any resistance. The dilator was removed and a His Medtronic catheter was inserted through the Glidewire into the 7-Canadian sheath without any resistance. The guidewire and dilator were removed from the His sheath then the pacing lead was advanced through the His sheath and we started electrical anatomic mapping of the His bundle region. Once we found the His bundle region via unipolar signals the lead was advanced through the sheath and positioned and screwed into the His bundle region. We had good His bundle pacing and thresholds and no diaphragmatic stimulation with high output pacing. The His sheath was split under fluoroscopic guidance followed then by the 7 Canadian outer sheath was split and the lead was affixed to the pectoralis muscle using 0 silk sutures. The second 7-Canadian sheath was inserted over the retained guidewire without any resistance. The guidewire and dilator were removed. Right atrial lead was positioned in right atrial appendage under fluoroscopic guidance using the white preformed J stylette. There was adequate pacing and sensing thresholds and no diaphragmatic stimulation with high output pacing. The 7-Canadian sheath was peeled away and lead was affixed to the pectoralis muscle using 0 silk suture. A pacemaker pocket was created using blunt dissection over the pectoralis muscle within the pectoralis fascia. The pocket was flushed with copious amounts of bacitracin saline wash and inspected for hemostasis. The pulse generator was then attached to the leads making sure that the pins were appropriate and passed the set screws and the set screws were all tightened. The pulse generator was then placed in the pocket, making sure that the leads were lying flat beneath the device. A stay stitch using 0 silk suture was used to secure the device to the pectoralis muscle. The incision was then closed in 3-layer fashion using 2-0 Vicryl interrupted suture followed by 3-0 Vicryl suture, followed by 4-0 Monocryl running stitch and Dermabond was applied. EQUIPMENT: 1. Pulse generator was a MetaModixchris Adhikari [id number], serial #[id number]. 2. Right atrial lead Medtronic 5076-52 cm, serial #[id number]. 3. Right ventricular lead Medtronic 3830-69 cm, serial #[id number]. INTRAOPERATIVE TESTIN. Right atrial lead: P-wave 3 millivolts, impedance 627 ohms, threshold 0.5 volts at 1 milliamp. 2. Right ventricular/His bundle lead is R-waves were 0.9 millivolts but higher unipolar at 2 millivolts, impedance 465 ohms. The loss of capture was at 0.6 volts at 1.4 milliamps, loss of His catheter was 1 volt at 1 milliamp. FINAL MEASUREMENTS THROUGH THE DEVICE: 1. Right atrial lead: P-waves 2 millivolts, impedance 475 ohms, threshold 0.5 volts at 0.4 milliseconds. 2. Right ventricular lead: R-wave 2.8 millivolts unipolar, impedance 475 ohms, threshold for loss of the entire capture was 0.5 volts at 1 millisecond. The loss of His capture was at 1 volt and 1 millisecond. FINAL PARAMETERS: MVP-R 60/130. Right atrial amplitude 3.5 volts, pulse width 0.4 milliseconds, sensitivity 0.3 millivolts. Right ventricular amplitude 3.5 volts, pulse width 1 millisecond, sensitivity 0.9 millivolts, unipolar. IMPRESSION: Successful implantation of a dual chamber rate responsive permanent pacemaker under fluoroscopic guidance with the right ventricular lead positioned in the His bundle region along with anatomical and electrical mapping of the His bundle due to tachybrady syndrome. PLAN: Monitor patient overnight, 12-lead ECG, chest x-ray. She will continue her Xarelto. Will start Toprol after discussion of general cardiology. She is not allowed to lift the left elbow over the left shoulder for 1 month. She cannot lift more than 10 pounds with the left arm for 2 weeks. He can shower tomorrow, let water run of the incision, do not scrub it. She should follow up in our [facility] device clinic in 7-10 days for device and wound check. I attest to the content of the Intraoperative Record and any orders documented therein. Any exceptions are noted below. GLO
[2017-03-22] MEDS: ACETAMINOPHEN/CODEINE 300/30MG TAB PO PRN ×2 (15:18→20:56)
[2017-03-22] MEDS ORDERED: RIVAROXABAN 20 MG TAB PO SCH (17:00)
[2017-03-23] VITALS: O2SAT 94
[2017-03-23 04:00] VITALS: BP 105/63; PULSE 79; TEMP 37.5; O2SAT 95
[2017-03-23] MEDS: ACETAMINOPHEN/CODEINE 300/30MG TAB PO PRN ×2 (04:27→08:10)
[2017-03-23 06:02] LABS: HEMATOCRIT 32.4 % (37-47); HEMOGLOBIN 11.2 g/dL (12.0-16.0)
[2017-03-23 06:38] LABS: CALCIUM 8.1 mg/dl (8.5-10.1); CREATININE 0.52 mg/dl (0.60-1.20)
--- NOTE | 2017-03-23 07:03 | DIAGNOSTIC IMAGING REPORT ---
CHEST 2 VIEWS ROUTINE CLINICAL HISTORY: Pacemaker placement COMPARISON STUDY: 03/20/2017 FINDINGS: The cardiac and mediastinal contours remain stable. There has been interval placement of a left subclavian[dual-chamber central venous pacemaker. The ventricular lead has an unusual orientation, and does not project over the right ventricular apex as is typical. Clinical correlation in this regard is recommended. No pneumothorax is visualized. There are no pleural effusions. There is no focal pulmonary consolidation. IMPRESSION: 1. No evidence of pneumothorax status post placement of a left subclavian dual-chamber central venous pacemaker 2. The ventricular lead has an unusual orientation, and does not project over the right ventricular apex as is typical. Clinical correlation in this regard is advocated Electronically signed by: Nolan Mcintyre M.D. 03/23/2017 7:02 AM Dictated Date/Time: 03/23/2017 6:56 AM
[2017-03-23 08:01] VITALS: BP_SYST 101; BP_SYST 159; BP_DIAS 55; BP_DIAS 62; PULSE 72; PULSE 76; TEMP 37; TEMP 37.2; O2SAT 98
[2017-03-23] MEDS: METHIMAZOLE 5 MG TAB PO SCH (08:10)
[2017-03-23] MEDS: AMLODIPINE BESYLATE 5 MG TAB PO SCH (08:10)
[2017-03-23] MEDS ORDERED: AMLODIPINE BESYLATE 5 MG TAB PO SCH (09:00)
[2017-03-23] MEDS ORDERED: METOPROLOL SUCC 25MG EXT REL TAB PO SCH (09:00)
--- NOTE | 2017-03-23 09:43 | Cardiology Follow-Up ---
Subjective Subjective Date of Service: Mar 23, 2017. Pt evaluation today including: conversation w/ patient, physical exam, chart review, lab review, review of studies, review of inpatient medication list Additional Details: Pt seen and examined, states that she's feeling well. A little sore at pocket site otherwise, well. Denies any recurrence of "skipped beats" or palpitations since pacer inserted. Tele reviewed: very short salvos of paf but no sustained arrhythmias. Device interrogated: functioning appropriately Problem List Medical Problems: (1) Atrial fibrillation Status: Acute (2) Atrial flutter Status: Acute (3) Bradyarrhythmia Status: Acute (4) Elevated troponin Status: Acute Review of Systems Respiratory: No see HPI, No cough, No sputum, No wheezing, No shortness of breath, No dyspnea on exertion, No dyspnea at rest, No hemoptysis, No problem reported Cardiac: + palpitations, No see HPI, No chest pain, No orthopnea, No PND, No edema, No claudication, No problem reported Objective Vital Signs Last Vital Signs Documentation Date Time Temp Pulse Resp B/P (MAP) Pulse Ox O2 Delivery O2 Flow Rate FiO2 03/23/17 08:01 37.0 76 18 101/62 (75) 98 Room Air Physical Exam: General Appearance: WD/WN, no apparent distress Eyes: bilateral eyes normal inspection, bilateral eyes PERRL, bilateral eyes EOMI ENT: normal ENT inspection, hearing grossly normal, pharynx normal Neck: supple, no adenopathy, thyroid normal, no JVD, no carotid bruits, trachea midline Respiratory/Chest: chest non-tender, lungs clear, normal breath sounds, no respiratory distress, no accessory muscle use Cardiovascular: regular rate, rhythm, no edema, no JVD, no murmur, + gallop/S4 Abdomen: normal bowel sounds, non tender, soft, no organomegaly Extremities: normal inspection, no pedal edema, no calf tenderness Neurologic/Psychiatric: recovery assistant II-XII nml as tested, no motor/sensory deficits, alert, normal mood/affect, oriented x 3 Skin: normal color, warm/dry, no rash Lymphatic: no adenopathy Assessment and Plan 1. tachy-jamar syndrome s/p PPM placement, His bundle lead instead of a ventricular lead which allows the zuni conduction system to be utilized unorthodox lead placement on chest xray is appropriate (impressive read by radiologist) started on toprol xl 25mg daily to suppress paroxysmal atrial arrhythmias already on Xarelto will have routine pocket check in our office per protocol f/u with Dr. Hobbs in 1 month, my office will arrange restrictions reviewed 2. hypertension with addition of toprol I've decreased amlodipine to 2.5mg daily may not need at all but will be determined as outpatient not hypotensive or symptomatic at this time, signs and symptoms reviewed ok to d/c to home from cardiac standpoint
--- NOTE | 2017-03-23 09:53 | Progress Note ---
Internal Med Progress Note Date of Service: Mar 23, 2017. Provider Documentation: SUBJECTIVE: Seen and examine at bedside Doing well this morning Had Pacemaker placement yesterday and Interrogation today Denies chest pain, SOB, dizziness, nausea No other complaints OBJECTIVE: Vital Signs-as noted below Physical Exam: General Appearance:Moderately built and nourished, no apparent distress Head: normocephalic, Atraumatic Eyes: normal inspection, EOMI, PERRL Neck: supple, Trachea midline Respiratory/Chest: Normal breath sounds, CTA Cardiovascular: S1, S2, No murmur Abdomen/GI:Soft, Non tender, Bowel sounds present Extremities/Musculoskelatal:normal inspection, no edema Neurologic/Psych:grossly no focal neurological deficits Skin: normal color, warm Lab data as noted below. ASSESSMENT & PLAN: Patient is a 71 yr Female who presents to the ED on 03/20/17 2 days after ablation for history of atrial fibrillation/flutter which was performed by Dr. Stewart Matamoros ([phone]) who presents with symptoms of "sensation" in her upper chest associated with dizziness and shortness of breath. Patient was found to be in afib RVR. Tachybrady Syndrome Paroxysmal AF with RVR, S/P Ablation Therapy S/P Pacemaker placement on 03/22/17 Continue Metoprolol for rate control Appreciate cardiology input On Xarelto for anticoagulation Increase Troponin: Likely secondary to Tachycardia ECHO: No segmental left ventricular wall motion abnormalities HTN continue Norvasc, BB Hyperthyroidism continue Tapazole 2.5 mg BID TSH, free T4 :normal DVT px: On Xarelto Code Status: Full Code Disposition: Plan to discharge home today Follow up with in 1 month Follow up with Dr. Peterson Mccollum for Primary Care in 1 week Follow up with your Lei Seller in 1 week Seek immediate medical attention if your symptoms reoccur or worsen PROCEDURES: ECHO: * Normal LV chamber size with moderate concentric LVH. * Normal LV systolic function, EF 60-65%. * No segmental left ventricular wall motion abnormalities are noted. * Aortic valve sclerosis mild, without significant aortic valvular stenosis. * Borderline left atrial enlargement. * Small, loculated anterior pericardial effusion adjacent to the right atrium. No hemodynamic significance. * Intact interatrial septum. PPM placement on 03/22/17 Vital Signs: Date Time Temp Pulse Resp B/P (MAP) Pulse Ox O2 Delivery O2 Flow Rate FiO2 03/23/17 08:01 37.0 76 18 101/62 (75) 98 Room Air 03/23/17 08:00 Room Air 03/23/17 04:00 37.5 79 22 105/63 (77) 95 Room Air 03/23/17 04:00 Room Air 03/23/17 00:00 94 Room Air 03/22/17 23:52 37.4 84 20 125/65 (85) 94 Room Air 03/22/17 20:04 36.9 78 20 106/66 (79) 97 Room Air 03/22/17 20:00 97 Room Air 03/22/17 16:00 Room Air 03/22/17 15:42 36.8 74 18 112/72 (85) 96 Room Air 03/22/17 13:00 83 107/63 (78) 96 Room Air 03/22/17 12:00 Room Air 03/22/17 11:30 86 157/81 (106) 98 Room Air 03/22/17 11:15 88 128/74 (92) 03/22/17 11:00 36.7 89 16 145/77 (99) 95 Room Air 03/22/17 10:45 88 16 130/60 (83) 95 Room Air 03/22/17 10:40 Room Air 03/22/17 10:35 Room Air 03/22/17 10:30 85 16 138/88 (105) 96 Room Air Lab Results: Results Past 24 Hours Test 03/23/17 05:26 Range/Units Hemoglobin 11.2 12.0-16.0 g/dL Hematocrit 32.4 37-47 % Sodium Level 131 136-145 mmol/L Potassium Level 4.0 3.5-5.1 mmol/L Chloride Level 99 98-107 mmol/L Carbon Dioxide Level 27 21-32 mmol/L Anion Gap 5.0 3-11 mmol/L Blood Urea Nitrogen 12 7-18 mg/dl Creatinine 0.52 0.60-1.20 mg/dl Est Creatinine Clear Calc Drug Dose 80.8 ml/min Estimated GFR () 112.2 Estimated GFR (Non- 96.8 BUN/Creatinine Ratio 22.2 10-20 Random Glucose 100 70-99 mg/dl Calcium Level 8.1 8.5-10.1 mg/dl
[2017-03-23] MEDS ORDERED: AMLO-110 PO (09:55)
[2017-03-23] MEDS ORDERED: TPRSR25 PO (09:55)
--- NOTE | 2017-03-23 10:00 | Discharge Summary ---
Discharge Summary Date of Service Mar 23, 2017. Discharge Summary Admission Date: Mar 20, 2017 at 22:48 Discharge Date: Mar 23, 2017 Discharge Disposition: Home Principal Diagnosis: Tachybrady Syndrome S/P Pacemaker Placement Procedures: CXR: 1. No evidence of pneumothorax status post placement of a left subclavian dual-chamber central venous pacemaker 2. The ventricular lead has an unusual orientation, and does not project over the right ventricular apex as is typical. Clinical correlation in this regard is advocated ECHO: * Normal LV chamber size with moderate concentric LVH. * Normal LV systolic function, EF 60-65%. * No segmental left ventricular wall motion abnormalities are noted. * Aortic valve sclerosis mild, without significant aortic valvular stenosis. * Borderline left atrial enlargement. * Small, loculated anterior pericardial effusion adjacent to the right atrium. No hemodynamic significance. * Intact interatrial septum. PPM placement on 03/22/17 Consultations: Cardiology Pending Studies/Follow-Up: Follow up with in 1 month Follow up with Dr. Peterson Mccollum for Primary Care in 1 week Follow up with your Brass Molder in 1 week Seek immediate medical attention if your symptoms reoccur or worsen Medication Reconciliation New Medications: Metoprolol Succinate (Metoprolol Succinate ER) 25 Mg Tabcr 25 MG PO QAM for 30 Days, #30 EA 1 Refill Changed Medications: Amlodipine (Norvasc) 5 Mg Tab 2.5 MG PO DAILY for 30 Days, #15 TAB (Changed from: 5 MG) Continued Medications: Methimazole (Methimazole ) 5 Mg Tab 2.5 MG PO BID 1/2 OF A 5 MG TABLET BID Rivaroxaban (Xarelto) Unknown Strength Tab 1 TAB PO QPM Admission Information HPI (per Admitting provider): This is a 71 year old Female who has generally received medical care with [facility] who presents to the ED on 03/20/17 2 days after ablation for history of atrial fibrillation/flutter which was performed by Dr. Stewart Matamoros ) who presents with symptoms of "sensation" in her upper chest that began in the morning and associated symptoms of dizziness and shortness of breath. Found to be in afib RVR. with heart rate 131 on presentation. EKG shows intermittent A. fib/A flutter with a rapid rate, no acute ischemia. Troponin elevated 1.38 possibly due to cardiac injury or strain or recent ablation.Patient was given Diltiazem IV 10 mg x 1 and then Diltizaem drip with heart rate decreasing however was noted to have pauses on the telemetry monitoring but patient remained awake. There were attempts made for hospital transfer to [place] but transfer could not be done due to lack of hospital beds ED physician then contacted [facility] paint roller assembler Dr. Nagi Drew who advised that patient should not receive further pharmacological interventions with the heart rate at this time. ED physician communicated with hospitalist physician that parameters to intervene would be if the heart rate was over 150 beats per minute or if patient has chest pain. When patient assessed by hospitalist for admission, patient was asymptomatic but reports that she previously she was feeling palpitations when her rate was very elevated. During this assessment patient's heart rate was still irregular but low 100s beats per minute. She was not in distress and speaking comfortably on room air followed directions of the physical exam. She states she currently takes Xarelto, Norvasc, RYTHMOL (propafenone hydrochloride), Tapazole 2.5 mg BID Physical Exam (per Admitting): General Appearance: no apparent distress Head: normocephalic, atraumatic Eyes: normal inspection, EOMI, sclerae normal ENT: normal ENT inspection, hearing grossly normal, pharynx normal Neck: supple, no adenopathy, thyroid normal, no JVD, trachea midline Respiratory/Chest: chest non-tender, lungs clear, normal breath sounds, no respiratory distress, no accessory muscle use Cardiovascular: no edema, normal peripheral pulses, + tachycardia, + irregularly irregular Abdomen/GI: normal bowel sounds, non tender, soft, no organomegaly, no pulsatile mass Back: normal inspection, no muscle spasm, normal range of motion Extremities/Musculoskelatal: normal inspection, no calf tenderness, no pedal edema, normal range of motion, non-tender Neurologic/Psych: no motor/sensory deficits, alert, normal mood/affect, oriented x 3 Skin: normal color, warm/dry, no rash Hospital Course Patient is a 71 yr Female who presents to the ED on 03/20/17 2 days after ablation for history of atrial fibrillation/flutter which was performed by Dr. Stewart Matamoros ([phone]) who presents with symptoms of "sensation" in her upper chest associated with dizziness and shortness of breath. Patient was found to be in afib RVR. Tachybrady Syndrome Paroxysmal AF with RVR, S/P Ablation Therapy S/P Pacemaker placement on 03/22/17 Continue Metoprolol for rate control Appreciate cardiology input On Xarelto for anticoagulation Increase Troponin: Likely secondary to Tachycardia ECHO: No segmental left ventricular wall motion abnormalities HTN continue Norvasc, BB Hyperthyroidism continue Tapazole 2.5 mg BID TSH, free T4 :normal DVT px: On Xarelto Code Status: Full Code Disposition: Plan to discharge home today Follow up with in 1 month Follow up with Dr. Peterson Mccollum for Primary Care in 1 week Follow up with your Brass Molder in 1 week Seek immediate medical attention if your symptoms reoccur or worsen PROCEDURES: ECHO: * Normal LV chamber size with moderate concentric LVH. * Normal LV systolic function, EF 60-65%. * No segmental left ventricular wall motion abnormalities are noted. * Aortic valve sclerosis mild, without significant aortic valvular stenosis. * Borderline left atrial enlargement. * Small, loculated anterior pericardial effusion adjacent to the right atrium. No hemodynamic significance. * Intact interatrial septum. PPM placement on 03/22/17 Total time spent on discharge = 33 minutes This includes examination of the patient, discharge planning, medication reconciliation, and communication with other providers. Discharge Instructions Discharge Instructions Date of Service Mar 23, 2017. Admission Reason for Admission: Status Post Ablation Of Atrial Fibrillation Discharge Discharge Diagnosis / Problem: Tachybrady Syndrome S/P Pacemaker Placement Discharge Goals Goal(s): Decrease discomfort, Improve function Activity Recommendations Activity Limitations: resume your previous activity Exercise/Sports Limitations: as tolerated . Instructions / Follow-Up Instructions / Follow-Up Follow up with in 1 month Follow up with Dr. Peterson Mccollum for Primary Care in 1 week Follow up with your Brass Molder in 1 week Seek immediate medical attention if your symptoms reoccur or worsen Current Hospital Diet Patient's current hospital diet: AHA Diet (Heart Healthy) Discharge Diet Recommended Diet: AHA Diet (Heart Healthy) Procedures Procedures Performed: dual chamber rate responsive pacemaker (RV lead over His bundle) under fluroscopic guidance, anatomical mapping of the His bundle Pending Studies Studies pending at discharge: no Medical Emergencies . Who to Call and When: Medical Emergencies: If at any time you feel your situation is an emergency, please call 911 immediately. . Non-Emergent Contact Non-Emergency issues call your: Primary Care Provider, Brass Molder Call Non-Emergent contact if: you have a fever, your pain is not controlled, your pain is worsening, your pain is unusual for you, your pain is concerning you, wound has increased drainage, wound has increased redness, wound has increased pain, you have any medication questions . . "Provider Documentation" section prepared by Richmond Winn. . VTE Core Measure Inpt VTE Proph given/why not?: Other Anticoagulation <Electronically signed by Richmond Winn MD> Signed: 03/23/17 0959 Signed: The status of this report is Signed * If report status is Draft, the document has not been finalized by the responsible provider.
[2017-03-23 11:22] VITALS: BP 118/74; PULSE 78; TEMP 36.8; O2SAT 96
[2017-03-23 11:38] VITALS: BP 118/74; PULSE 78; TEMP 36.8; O2SAT 96
== END 2017-03-23 15:58 | disposition home or self-care (01) | DRG 244 ==
LOC: C.EDB 19:48 → C.2T 22:48 → ENRESERV 22:56
PROVIDERS: ADMIT Hospitalist; ATTEND Internal Medicine
PROC: 0JH606Z Insertion of Pacemaker, Dual Chamber into Chest Subcutaneous Tissue and Fascia, Open Approach (ICD-10-PCS; principal; 2017-03-22 07:20)
PROC: 02H63JZ Insertion of Pacemaker Lead into Right Atrium, Percutaneous Approach (ICD-10-PCS; principal; 2017-03-22 07:20)
PROC: 02HK3JZ Insertion of Pacemaker Lead into Right Ventricle, Percutaneous Approach (ICD-10-PCS; principal; 2017-03-22 07:20)
DX: I49.5 Sick sinus syndrome (principal); I48.0 Paroxysmal atrial fibrillation; I10 Essential (primary) hypertension; E05.90 Thyrotoxicosis, unspecified without thyrotoxic crisis or storm; Z79.01 Long term (current) use of anticoagulants; Z79.899 Other long term (current) drug therapy; Z87.891 Personal history of nicotine dependence; Z98.890 Other specified postprocedural states

== ENCOUNTER 2017-05-08 19:40 | Inpatient (IN) | payer OTHER ==
[~2017-05-08] VITALS: Ht 153.7 cm; Wt 56.1 kg
[~2017-05-08 19:40] MED LIST: AMLO-110 PO; METH-589 PO; RIVA1TAB PO; TPRSR25 PO
[2017-05-08] MEDS ORDERED: SODIUM CHLORIDE 0.9% 1000ML 1,000 ML IV STA (19:52)
[2017-05-08] MEDS ORDERED: ONDANSETRON INJ 2 MG/ML 2 ML VIAL IV STA (19:52)
[2017-05-08] MEDS ORDERED: ASPIRIN 81 MG CHEW PO STA (19:52)
--- NOTE | 2017-05-08 19:56 | EMERGENCY ROOM VISIT NOTE ---
History Report prepared by Lew: Yahaira Hidalgo Under the Supervision of: Dr. Anastacio Guillen M.D. First contact with patient: 19:47 Chief Complaint: ILLNESS Stated Complaint: FLU LIKE, NO ENERGY, SWEATS CHILLS, APPETITE,SOB History of Present Illness The patient is a 71 year old female who presents to the Emergency Room with complaints of intermittent generalized illness beginning a couple days ago. The patient reports her symptoms started with chest tightness. She reports chills, fatigue, nausea, decreased appetite, and shortness of breath with exertion. The patient denies any palpitations, cough, blood in urine, urinary pain, blood in stool, black or tarry stools. The patient denies any recent travel. The patient has a history of an ablation, atrial fibrillation, and a pacemaker. She is on Xarelto. She is not reporting any chest pain or shortness of breath at this moment. She states she thinks her chest pain might be related to her recently starting up at the gym again. The patient has been taking her medications as prescribed. Source of History: patient Onset: a couple days ago Position: other (generalized) Quality: other (illness) Timing: intermittent Associated Symptoms: + chills, + SOB, + nausea, + fatigue, No urinary symptoms Review of Systems See HPI for pertinent positives and negatives. A total of ten systems were reviewed and were otherwise negative. Past Medical & Surgical Medical Problems: (1) Pericardial effusion (2) Tachycardia Surgical Problems: (1) Status post ablation of atrial fibrillation Family History FH: atrial fibrillation SISTER Social History Smoking Status: Never Smoker Current/Historical Medications Scheduled Amlodipine (Norvasc), 5 MG PO DAILY Ascorbic Acid (Vitamin C), 500 MG PO DAILY Methimazole (Methimazole ), 5 MG PO DIRECTED Metoprolol Succinate (Metoprolol Succinate ER), 25 MG PO QAM Multivitamin (Multivitamin), 1 TAB PO DAILY Rivaroxaban (Xarelto), 20 MG PO QPM Allergies Coded Allergies: BEE STING (Unverified Allergy, Intermediate, ., 05/08/17) Physical Exam Vital Signs Date Time Temp Pulse Resp B/P (MAP) Pulse Ox O2 Delivery O2 Flow Rate FiO2 05/08/17 21:30 72 18 110/77 97 Room Air 05/08/17 21:00 72 18 126/84 98 Room Air 05/08/17 21:00 74 18 126/84 97 Room Air 05/08/17 20:49 155 05/08/17 20:47 75 18 134/79 98 Room Air 05/08/17 20:46 151 05/08/17 20:32 78 18 115/74 98 Room Air 05/08/17 20:24 76 18 113/74 98 Room Air 05/08/17 20:23 98 Room Air 05/08/17 20:23 98 Room Air 05/08/17 19:44 36.6 81 18 107/70 99 Room Air Physical Exam Physical Exam GENERAL: She is oriented to person, place, and time. She appears well- developed and well-nourished. She does not appear distressed. ____ HENT: Exam performed. Head: Normocephalic and atraumatic. Right Ear: External ear normal. No mastoid tenderness. Left Ear: External ear normal. No mastoid tenderness. Mouth/Throat: The oropharynx is clear and moist. No trismus in the jaw. No dental abscesses or uvula swelling. No oropharyngeal exudate or tonsillar abscesses. ____ EYES: Conjunctivae and EOM are normal. Pupils are equal, round, and reactive to light. Right eye exhibits no discharge. Left eye exhibits no discharge. No scleral icterus. ____ NECK: Normal range of motion. Neck supple. No JVD present. No spinous process tenderness present. No carotid bruit present. No rigidity. No tracheal deviation and normal range of motion present. No Brudzinski's sign and no Kernig 's sign noted. ____ CV: Normal rate, regular rhythm, normal heart sounds and intact distal pulses. There is no peripheral edema. Palpable radial pulses bue. ____ PULM/CHEST: Effort normal and breath sounds normal. No respiratory distress. No stridor. She has no wheezes. She has no rales. Chest Wall: She exhibits no tenderness. ____ ABD: The abdomen is soft. Bowel sounds are normal. She has no distension. No mass is present. There is no tenderness. There is no rebound, no guarding, no Bustamante's sign and no tenderness at McBurney's point. Rovsig negative MUSC/SKEL: Normal range of motion. There is no peripheral edema, tenderness or deformity. LYMPH: No cervical adenopathy. ____ NEURO: She is alert and oriented to person, place, and time. She has normal strength. No cranial nerve deficit or sensory deficit. Coordination and gait normal. GCS eye subscore is 4. GCS verbal subscore is 5. GCS motor subscore is 6. Cerebellar tests wnl. ____ SKIN: Skin is warm and dry. SHe is not diaphoretic. ____ PSYCH: She has a normal mood and affect. Her behavior is normal. Judgment and thought content normal. ____ Medical Decision & Procedures ER Provider Diagnostic Interpretation: Radiology results as stated below per my review and radiologist interpretation: SINGLE VIEW CHEST FINDINGS: An AP, portable, upright chest radiograph is compared to study dated 03/23/2017. A 2-lead cardiac pacemaker is unchanged in position and partially obscures the left mid chest. The heart is enlarged and there is atherosclerotic calcification of the thoracic aorta. The pulmonary vasculature is noncongested. Chronic interstitial thickening is unchanged. No airspace consolidation or large pleural effusion is identified. No pneumothorax is seen. The skeletal structures are osteopenic. The bony thorax is grossly intact. IMPRESSION: 1. Cardiomegaly and cardiac pacemaker. There is no radiographic evidence of congestive failure. 2. No airspace consolidation or large pleural effusion is identified. Electronically signed by: Ed Gray M.D. Laboratory Results 05/08/17 20:17 Red Blood Count 3.93, Mean Corpuscular Volume 95.9, Mean Corpuscular Hemoglobin 33.8, Mean Corpuscular Hemoglobin Concent 35.3, Mean Platelet Volume 10.5, Neutrophils (%) (Auto) 75.2, Lymphocytes (%) (Auto) 14.5, Monocytes (%) (Auto) 9.8, Eosinophils (%) (Auto) 0.1, Basophils (%) (Auto) 0.1, Neutrophils # (Auto) 10.81, Lymphocytes # (Auto) 2.08, Monocytes # (Auto) 1.40, Eosinophils # (Auto) 0.01, Basophils # (Auto) 0.01 05/08/17 20:17 Test 05/08/17 20:17 05/08/17 20:24 White Blood Count 14.35 K/uL (4.8-10.8) Red Blood Count 3.93 M/uL (4.2-5.4) Hemoglobin 13.3 g/dL (12.0-16.0) Hematocrit 37.7 % (37-47) Mean Corpuscular Volume 95.9 fL (80-100) Mean Corpuscular Hemoglobin 33.8 pg (25-34) Mean Corpuscular Hemoglobin Concent 35.3 g/dl (32-36) Platelet Count 193 K/uL (130-400) Mean Platelet Volume 10.5 fL (7.4-10.4) Neutrophils (%) (Auto) 75.2 % Lymphocytes (%) (Auto) 14.5 % Monocytes (%) (Auto) 9.8 % Eosinophils (%) (Auto) 0.1 % Basophils (%) (Auto) 0.1 % Neutrophils # (Auto) 10.81 K/uL (1.4-6.5) Lymphocytes # (Auto) 2.08 K/uL (1.2-3.4) Monocytes # (Auto) 1.40 K/uL (0.11-0.59) Eosinophils # (Auto) 0.01 K/uL (0-0.5) Basophils # (Auto) 0.01 K/uL (0-0.2) RDW Standard Deviation 43.4 fL (36.4-46.3) RDW Coefficient of Variation 12.3 % (11.5-14.5) Immature Granulocyte % (Auto) 0.3 % Immature Granulocyte # (Auto) 0.04 K/uL (0.00-0.02) Erythrocyte Sedimentation Rate 4 mm/hr (0-21) Prothrombin Time 12.6 SECONDS (9.0-12.0) Prothromb Time International Ratio 1.2 (0.9-1.1) Activated Partial Thromboplast Time 30.0 SECONDS (21.0-31.0) Partial Thromboplastin Ratio 1.2 Anion Gap 7.0 mmol/L (3-11) Est Creatinine Clear Calc Drug Dose 33.3 ml/min Estimated GFR () 44.8 Estimated GFR (Non- 38.6 BUN/Creatinine Ratio 13.0 (10-20) Calcium Level 8.7 mg/dl (8.5-10.1) Magnesium Level 2.0 mg/dl (1.8-2.4) Total Bilirubin 0.8 mg/dl (0.2-1) Direct Bilirubin 0.2 mg/dl (0-0.2) Aspartate Amino Transf (AST/SGOT) 19 U/L (15-37) Alanine Aminotransferase (ALT/SGPT) 23 U/L (12-78) Alkaline Phosphatase 108 U/L (45-117) Total Creatine Kinase 61 U/L (26-192) Troponin I < 0.015 ng/ml (0-0.045) Total Protein 7.0 gm/dl (6.4-8.2) Albumin 3.5 gm/dl (3.4-5.0) Lipase 104 U/L (73-393) Influenza Type A (RT-PCR) Neg for Influ A (NEG) Influenza Type A Antigen Neg for Influ A (NEG) Influenza Type B Antigen Neg for Influ B (NEG) Influenza Type B (RT-PCR) Neg for Influ B (NEG) Laboratory results reviewed by me Medications Administered Medications (Trade) Dose Ordered Sig/Carmelo Route Start Time Stop Time Status Last Admin Dose Admin Aspirin (Aspirin Chew) 324 mg NOW STAT PO 05/08/17 19:52 05/08/17 19:58 DC 05/08/17 20:46 324 MG ECG Per My Interpretation Indication: weakness Rate (beats per minute): 77 Rhythm: sinus rhythm Findings: other (NE, QRS and QTC are within normal limits NE depression and concave elevations in leads 1,2,3, avf v3,v4,v5,v6 ) Change: Repeat EKG: Sinus rhythm 76 NE, QRS and QTC are within normal limits , NE depression and concave elevation in leads 1,2 avf v3,v4,v5,v6. Repeat EKG: Sinus rhythm 79 bpm, NE, QRS and QTC are within normal limits, NE depression and concave elevation in leads 1,2,3 avf, v3,v4,v5,v5. ED Course 1950: The patient was evaluated in room A12B. A complete history and physical exam was performed. 1951: Ordered Zofran Inj 4 mg IV, Sodium Chloride 1000 ml @ 999 mls/hr IV, Aspirin 324 mg PO. 2014: EKG: sinus rhythm with rate 77 bpm. NE, QRS and QTC are within normal limits NE depression and concave elevations in leads 1,2,3, avf v3,v4,v5,v6. EKG is more consistent with pericarditis than acute WI pt is not complaining of any substernal chest pressure or difficulty breathing. Hemodynamically stable. Repeat EKG will be performed. 2022: Repeat EKG: Sinus rhythm with rate 76. NE QRS and QTC are within normal limits , NE depression and concave elevation in leads 1,2 avf v3,v4,v5,v6. EKG is again more consistent with pericarditis although the EKG read is calling it an acute STEMI. Beside ultrasound shows large pericardial effusion in subxiphoid , apical and parasternal long view. There is no evidence of pericardial tamponade. Will consult cardiology. 2028: Repeat EKG: Sinus rhythm with rate 79 bpm, NE QRS and QTC are within normal limits, NE depression and concave elevation in leads 1,2,3 avf, v3,v4,v5, v5, again more consistent with pericarditis and acute WI. 2035: Discussed the patient's case with Dr. Mccarty-Cardiology. He agrees that the EKG pattern is more consistent with pericarditis than STEMI he is not comfortable keeping the patient here given she is on Xarelto and recently had her pacemaker placed, he recommends transfer. 2051: Discussed the patients case with [facility]. Presently, there are no beds readily available. Also discussed the patients case with Dr. Mccann Cardiology and he is comfortable accepting the patient for transfer if a bed becomes available. Transfer center states there is a possibility that two beds may become available but they are unsure of when the beds will be available. The transfer center asked if we were comfortably sending the patient to [facility]. [facility] has a cardiothoracic surgeon and cardiac ICU. Transfer center arranged for use to speak with Raymond Gross. Conversation with Dr. Leo Gross- Cardiothoracic surgeon, he states if a bed is available at [facility] he thinks she would be better served there. Transfer center asked if we could hold the patient in the ICU until a bed became available. 2099: The patient and family are comfortable going to [facility]. But they would prefer to go to [facility]. 2122: Discussed the patient's case with Dr. Nicole-Remote Sensing Technologist. He is comfortable keeping the patient until a bed becomes available. Requests that the patient be admitted to hospitalist service. 2135: [facility]iscuss[facility] the [facility]'s [facility] He is comfortable with having the patient stay in the ICU until a bed becomes available. The patient will be evaluated for further treatment and disposition. 2146: Patient is agreeable to the treatment plan. Pt is hemodynamically stable, blood [id number], pulse 73, and oxygen saturation is 98 percent. Mild leukocytosis, lactic acid is minimally elevated. Troponin is within normal limits. 2202: [facility] Liaison agrees the patient should stay in the ICU here until a bed becomes available at [facility]. Once a bed becomes available, he will accept the patient for transfer under his service. Medical Decision EKG was consistent with pericarditis. Bedside ultrasound showed large pericardial effusion, no pericardial tamponade. Cardiology recommended transfer to higher level facility tertiary care center given that the patient recently had a pacemaker placed in March and she has been on Xarelto. The concern was that the patient did have a small leak from the ventricle causing an accumulating pericardial effusion. During her emergency visits today, the patient did not have any signs on ultrasound or physical exam concerning for pericardial tamponade. This thought that the pericardial effusion could also be due to a pericarditis-like syndrome given her EKG findings and HPI. Many attempts were made to get the patient transferred to [facility] or other [facility] facility that offered cardiac ICU and cardiothoracic surgery, however there were issues with transport and bed availability at the facilities. Discussed with Dr. Nicole ICU attending who felt felt comfortable keeping the patient in the ICU at this facility until a bed becomes available [facility]. Patient and family member at bedside were also comfortable with this plan. Throughout her emergency department stay, the patient remained hemodynamically stable. Medication Reconcilliation Current Medication List: was personally reviewed by md Blood Pressure Screening Patient's blood pressure: Normal blood pressure Consults Time Called: 2029 Consulting Physician: Dr. Mccarty-Cardiology Returned Call: 2035 Discussed the patient's case with Dr. Mera. He is not comfortable keeping the patient here, he recommends transfer Additional Consults: Time Called: 2049 Consulted Physician: [facility] Returned Call: 2051 Additional Comments: Discussed the patients case with [facility]. Presently, there are no beds readily available. Also discussed the patients case with Dr. Kip Enriquez Cardiology and he is comfortable accepting the patient for transfer if a bed becomes available. Transfer center states there is a possibility that two beds may become available but they are unsure of when the beds will be available. The transfer center asked if we were comfortably sending the patient to [facility]. [facility] has a cardiothoracic surgeon and cardiac ICU. Transfer center arranged for use to speak with Raymond Gross. Conversation with Dr. Leo Gross- Cardiothoracic surgeon, he states [facility] bed is avaible at [facility] he thinks she would be better served there. Transfer center asked if we could hold the patient in the ICU until a bed became Time Called: 2119 Consulted Physician: Dr. Nicole-Remote Sensing Technologist Returned Call: 2122 Additional Comments: Discussed the patient's case with Dr. Nicole-Remote Sensing Technologist. He is comfortable keeping the patient until a bed becomes available. Requests that the patient be admitted to hospitalist service. Impression Primary Impression: Pericardial effusion Additional Impression: Pericarditis Critical Care I have personally spent greater than 120 minutes of critical care time in the direct management of this patient. This includes bedside care, interpretation of diagnostic studies, and testing, discussion with consultants, patient, and family members, and other required patient management activities. This 120 minutes is in excess of all separately billable procedures. Scribe Attestation The scribe's documentation has been prepared under my direction and personally reviewed by me in its entirety. I confirm that the note above accurately reflects all work, treatment, procedures, and medical decision making performed by me. Departure Information Dispostion Being Evaluated By Hospitalist Referrals Peterson Chang M.D. (PCP) Patient Instructions My [facility] Problem Qualifiers Additional Impression: Pericarditis Pericarditis type: unspecified type Chronicity: acute Qualified Codes: I30.9 - Acute pericarditis, unspecified
[2017-05-08] MEDS ORDERED: ASCA500 PO (20:10)
[2017-05-08] MEDS ORDERED: MULT-506 PO (20:10)
[2017-05-08] MEDS ORDERED: AMLO-110 PO (20:10)
[2017-05-08] MEDS ORDERED: RIVA1TAB4 PO (20:10)
[2017-05-08 20:32] LABS: BASO % 0.1 %; BASO ABS # 0.01 K/uL (0-0.2); EOS % 0.1 %; EOS ABS # 0.01 K/uL (0-0.5); HEMATOCRIT 37.7 % (37-47); HEMOGLOBIN 13.3 g/dL (12.0-16.0); IG# 0.04 K/uL (0.00-0.02); LYMPH % 14.5 %; LYMPH ABS # 2.08 K/uL (1.2-3.4); MEAN CELL VOLUME 95.9 fL (80-100); MEAN CORPUSCULAR HEMOGLOBIN 33.8 pg (25-34); MEAN CORPUSCULAR HGB CONC 35.3 g/dl (32-36); MEAN PLATELET VOLUME 10.5 fL (7.4-10.4); MONO % 9.8 %; NEUT % 75.2 %; NEUT ABS # 10.81 K/uL (1.4-6.5); PLATELET COUNT 193 K/uL (130-400); RED CELL DISTRIBUTION WIDTH CV 12.3 % (11.5-14.5); RED CELL DISTRIBUTION WIDTH SD 43.4 fL (36.4-46.3); WHITE BLOOD COUNT 14.35 K/uL (4.8-10.8)
[2017-05-08 20:45] LABS: INR 1.2 (0.9-1.1)
[2017-05-08 20:50] LABS: ALBUMIN 3.5 gm/dl (3.4-5.0); ALT/SGPT 23 U/L (12-78); BLOOD UREA NITROGEN 18 mg/dl (7-18); CALCIUM 8.7 mg/dl (8.5-10.1); CARBON DIOXIDE 27 mmol/L (21-32); CREATININE 1.38 mg/dl (0.60-1.20); GLUCOSE 179 mg/dl (70-99); LIPASE 104 U/L (73-393); POTASSIUM 4.7 mmol/L (3.5-5.1); SODIUM 126 mmol/L (136-145)
[2017-05-08 20:55] LABS: ALKALINE PHOSPHATASE 108 U/L (45-117); AST/SGOT 19 U/L (15-37)
[2017-05-08 21:32] LABS: INFLUENZA B ANTIGEN Neg for Influ B (NEG)
--- NOTE | 2017-05-08 21:56 | DIAGNOSTIC IMAGING REPORT ---
SINGLE VIEW CHEST CLINICAL HISTORY: Fatigue. FINDINGS: An AP, portable, upright chest radiograph is compared to study dated 03/23/2017. A 2-lead cardiac pacemaker is unchanged in position and partially obscures the left mid chest. The heart is enlarged and there is atherosclerotic calcification of the thoracic aorta. The pulmonary vasculature is noncongested. Chronic interstitial thickening is unchanged. No airspace consolidation or large pleural effusion is identified. No pneumothorax is seen. The skeletal structures are osteopenic. The bony thorax is grossly intact. IMPRESSION: 1. Cardiomegaly and cardiac pacemaker. There is no radiographic evidence of congestive failure. 2. No airspace consolidation or large pleural effusion is identified. Electronically signed by: Ed Gray M.D. 05/08/2017 9:55 PM Dictated Date/Time: 05/08/2017 9:53 PM
[2017-05-08] MEDS ORDERED: NURSING VERBAL MED ORDER ONE (22:15)
[2017-05-08 22:40] LABS: INFLUENZA A PCR Neg for Influ A (NEG); INFLUENZA B PCR Neg for Influ B (NEG)
[2017-05-08] MEDS ORDERED: ACETAMINOPHEN 325 MG TAB PO PRN (23:00)
[2017-05-08] MEDS ORDERED: LORAZEPAM 2 MG/ML 1 ML VIAL IV PRN (23:00)
[2017-05-08] MEDS ORDERED: ICU PROTOCOL FOR HYPERGLYCEMIA PRN (23:00)
[2017-05-08] MEDS ORDERED: PROCHLORPERAZINE INJ 5 MG in SYRINGE 4 ML IV PRN (23:00)
[2017-05-08] MEDS ORDERED: HYDROmorphone INJ 0.5 MG/0.5 ML SYR IV PRN (23:00)
[2017-05-08] MEDS ORDERED: TRAMADOL HCL 50 MG TAB PO PRN (23:00)
[2017-05-08 23:07] VITALS: BP 119/81; PULSE 74; O2SAT 98
[2017-05-08 23:15] VITALS: BP 119/81; PULSE 74; TEMP 36.5; O2SAT 98; Ht 153.7 cm; Wt 56.1 kg
[2017-05-09] VITALS (19 sets, daily range): BP systolic 100–157; BP diastolic 72–102; PULSE 61–133; TEMP 36.5–36.7; O2SAT 95–98
[2017-05-09] MEDS ORDERED: SODIUM CHLORIDE 0.9% 1000ML 1,000 ML IV SCH (00:15)
[2017-05-09] MEDS ORDERED: LORAZEPAM INJ 0.5 MG in SYRINGE 0.75 ML IV PRN (01:15)
--- NOTE | 2017-05-09 02:00 | HISTORY & PHYSICAL EXAMINATION ---
DATE OF ADMISSION: 05/08/2017 HISTORY OF PRESENT ILLNESS: History obtained from patient and records. Medical history significant for SSS sp PPM on Xarelto, HTN, hyperthyroidism, Past tobacco abuse. 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 2D echo showed EF of 60%, LVH, aortic valve sclerosis, small loculated anterior pericardial effusion adjacent to the right atrium, no hemodynamic significance. Two days history of aches, malaise, poor appetite, some chills, substernal discomfort, nonradiating, pleuritic. No shortness of breath. Denies cough symptoms. Denies tick bites. Patient concerned about having done strenuous stretching using a chest press machine during workouts. Patient brought to the Emergency Room. Patient found to have pericardial effusion without tamponade on TTE, lifestyle coordinator business analysis consultant recommended transfer to [facility] given PPM history. [place] accepted [place] [facility] [place] man business analysis consultant as per ER provider pending bed availability. MEDICAL HISTORY: As above. SURGERIES: She has had a pacemaker placement. HOME MEDICATIONS: Include Norvasc, vitamin C, methimazole, multivitamin, Xarelto, Toprol-XL. FAMILY HISTORY: Atrial fibrillation. PERSONAL AND SOCIAL HISTORY: Past tobacco abuse. No chronic intake of alcoholic beverages. 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 REVIEW OF SYSTEMS: As per HPI. All 10 systems reviewed. All other ROS negative. PHYSICAL EXAMINATION: VITAL SIGNS: Blood pressure was noted to be 134/75, pulse rate 79, RR 18, temperature 36.5, sats 98 on room air. GENERAL: Noted to be pleasant, no distress, slightly anxious. SKIN: Normal color, warm. HEENT: [place] palpebral conjunctivae. No ptosis. Dry mucosa. NECK: Supple, nontender. CHEST: Clear to auscultation. Substernal tenderness. HEART: Regular rate and rhythm, no murmur. ABDOMEN: Soft, nontender. EXTREMITIES: No edema, no deformities. No tenderness. NEUROLOGIC: Coherent. No gross focality. LABORATORY DATA: Hemoglobin was noted to be at 13.3, hematocrit 37.7, white cell count 14.35, platelets noted to be 193. ESR noted to be 4. Sodium 136, potassium 4.7, chloride 91, CO2 27, BUN 80, creatinine 1.38. Initial lactic acid noted to be 2.6. Procalcitonin normal. Lyme screen negative. trop negative Chest x-ray cardiomegaly, no CHF, pacemaker. EKG as per my interpretation, rate 70, NSR, left atrial enlargement, normal axis , HI depression noted in multiple leads, concave ST elevation in inferior leads. ASSESSMENT: 1. Pericardial effusion No evidence of tamponade on bedside cardiac ultrasound done by ER provider. Possible viral pericarditis given constitutional symptoms. Of note, patient had a small loculated anterior pericardial effusion adjacent to right atrium noted on 2D echo from recent confinement last March 2017. 2. SSS sp PPM, px NSR on Xarelto 3. Hypertension, stable. 4. Hyponatremia. ARF, clinical dehydration secondary to viral illness. 5. Hyperthyroidism, on meds. 6. Past tobacco abuse. PLAN: ICU monitoring until bed available at [facility]. (Patient already accepted for transfer by [facility] [place] man business analysis consultant, Dr. Soto. as per ER provider. ER provider had already discussed the case with Dr. Nicole, [facility] psychologist personnel business analysis consultant.) 2D echo, Cardio consultation RE pericardial effusion Hold Xarelto for now to avert hemopericardium. Baseline UA, monitor creatinine response to NSS, careful correction of sodium DVT prophylaxis, SCDs. RE possible/potential for hemopericardium. Full code. MTDD
[2017-05-09] MEDS ORDERED: METOPROLOL SUCC 25MG EXT REL TAB PO ONE (04:28)
[2017-05-09 05:15] LABS: BASO % 0.2 %; BASO ABS # 0.02 K/uL (0-0.2); EOS % 0.5 %; EOS ABS # 0.07 K/uL (0-0.5); HEMATOCRIT 35.4 % (37-47); HEMOGLOBIN 12.6 g/dL (12.0-16.0); IG# 0.05 K/uL (0.00-0.02); LYMPH % 31.9 %; LYMPH ABS # 4.17 K/uL (1.2-3.4); MEAN CELL VOLUME 95.2 fL (80-100); MEAN CORPUSCULAR HEMOGLOBIN 33.9 pg (25-34); MEAN CORPUSCULAR HGB CONC 35.6 g/dl (32-36); MEAN PLATELET VOLUME 10.8 fL (7.4-10.4); MONO % 16.3 %; MONO ABS # 2.14 K/uL (0.11-0.59); NEUT % 50.7 %; NEUT ABS # 6.64 K/uL (1.4-6.5); PLATELET COUNT 174 K/uL (130-400); RED CELL DISTRIBUTION WIDTH CV 12.5 % (11.5-14.5); RED CELL DISTRIBUTION WIDTH SD 43.5 fL (36.4-46.3); WHITE BLOOD COUNT 13.09 K/uL (4.8-10.8)
[2017-05-09 05:39] LABS: CALCIUM 8.3 mg/dl (8.5-10.1); CREATININE 0.8 mg/dl (0.60-1.20); POTASSIUM 4.8 mmol/L (3.5-5.1)
[2017-05-09 07:10] LABS: HEMOGLOBIN A1C 5.1 % (4.5-5.6)
[2017-05-09] MEDS ORDERED: SODIUM CHLORIDE 0.9% 500ML 500 ML IV ONE (08:00)
[2017-05-09] MEDS ORDERED: AMLODIPINE BESYLATE 5 MG TAB PO SCH (09:00)
[2017-05-09] MEDS ORDERED: METOPROLOL SUCC 25MG EXT REL TAB PO SCH (09:00)
[2017-05-09] MEDS ORDERED: METHIMAZOLE 5 MG TAB PO SCH (09:00)
[2017-05-09] MEDS ORDERED: MULTIVITAMIN TAB PO SCH (09:00)
[2017-05-09] MEDS ORDERED: AMIODARONE IV BOLUS / DRIP IV STA (09:10)
[2017-05-09] MEDS ORDERED: IBUPROFEN 200 MG TAB PO ONE (09:30)
[2017-05-09] MEDS ORDERED: PANTOprazole SOD 40 MG TAB PO ONE (09:30)
[2017-05-09] MEDS ORDERED: AMIODARONE / D5W 100 ML PHARMACY PREPARED IV ONE ×2 (09:30)
[2017-05-09] MEDS ORDERED: COLCHICINE 0.6 MG TAB PO ONE (09:30)
--- NOTE | 2017-05-09 09:41 | CONSULTATION REPORT ---
DATE OF CONSULTATION: 05/09/2017 REFERRING: [facility] REASON FOR CONSULTATION: Pericardial effusion. HISTORY: This is a 71-year-old female who is well known to the [facility] group. In March, she had atrial fibrillation ablation performed at [facility]. 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 Hobbs. The ventricular lead was a His bundle position. The patient did well postop. She actually saw Dr. Hobbs recently and was doing well enough that Dr. Hobbs thought she could go back to her routine exercise program. The patient was doing a workout with her arms and had some chest discomfort. The discomfort was severe enough that she felt she should come to the Emergency Department. Early this morning, the ER physician noted pericardial effusion. The studio manager on-call was notified who felt that the patient should be transferred to [place] due to the recent pacemaker insertion and the patient being anticoagulated with Xarelto. Arrangements were made but there is a bed shortage at [facility] and she was admitted to the ICU early this morning. She has no significant complaints this morning. She is not having ongoing chest pain. She is having runs of atrial fibrillation with rates of 130-150 beats per minute. During those events, her blood pressure does drop; however, she is not symptomatic. The patient had a full echocardiogram this morning. She does have a large pericardial effusion but there is no echocardiographic evidence for tamponade. ALLERGIES: TO BEE STINGS. PAST MEDICAL HISTORY: As outlined in the history of chief complaint, the patient has a history of atrial fibrillation and underwent an ablation at [facility] in March. The patient then re-presented with tachybrady syndrome, requiring a permanent pacemaker that was implanted in March. She has no other significant cardiac history. No history of diabetes, strokes or kidney disease. SOCIAL HISTORY: She is a reformed cigarette smoker. FAMILY MEDICAL HISTORY: Noncontributory. REVIEW OF SYSTEMS: A 10-point review of systems is negative except for the history of chief complaint. PHYSICAL EXAMINATION: GENERAL: She is alert and oriented, no acute distress. VITAL SIGNS: Blood pressure is 125/70, pulse is irregular at 120 beats per minute, she is afebrile. HEENT: She is normocephalic. Pupils are equal and reactive to light. Extraocular muscles are intact bilaterally. NECK: The neck veins are flat. Carotids have good upstrokes bilaterally without bruits. Thyroid is nonpalpable. RESPIRATORY: Breath sounds are equal bilaterally and clear to auscultation. CARDIOVASCULAR: Heart has an irregular rhythm. Normal S1, S2. No S3, S4. No cardiac rubs or murmurs. GASTROINTESTINAL: Abdomen is soft, nontender, without organomegaly. EXTREMITIES: Free of edema, digit clubbing, or cyanosis. NEUROLOGIC: Grossly intact. SKIN: Warm to touch. LYMPH NODES: Negative to palpation. LABORATORY DATA: Hemoglobin is 12.6, WBC count is 13. Potassium is 4.8, creatinine is 0.8. Bedside cardiac troponins were negative. EKG on presentation reveals a sinus rhythm with concave ST-segment elevation in the majority of the leads consistent with pericarditis. IMPRESSION: 1. Pericarditis with a large pericardial effusion. 2. Recent dual-chamber pacemaker for tachybrady syndrome. 3. Paroxysmal atrial fibrillation with recent atrial fibrillation ablation. RECOMMENDATIONS: I spoke with both Dr. Hobbs as well as Dr. Adames from [facility] in [place]. The patient will have her pacemaker interrogated to see if the leads are functioning appropriately. It is possible that she had a microperforation, and being on Xarelto, this contributed to her pericardial effusion and pericarditis. We will start her on intravenous amiodarone to control her atrial fibrillation. I will also add colchicine and ibuprofen to her medical regimen. Currently, she is hemodynamically stable. She does have transfer orders in when the cue is available.
[2017-05-09] MEDS ORDERED: AMIODARONE / D5W 200 ML IV SCH ×2 (09:45→15:45)
--- NOTE | 2017-05-09 11:43 | Progress Note ---
Internal Med Progress Note Date of Service: May 09, 2017. Provider Documentation: SUBJECTIVE: Seen and examine saeid bedside Denies any chest pain, SOB, palpitations On Amiodarone ggt No complaints Planned to be discharged to [facility] when bed available today OBJECTIVE: Vital Signs-as noted below Physical Exam: Vitals signs as noted above General Appearance:Moderately built and nourished, no apparent distress Head: normocephalic, Atraumatic Eyes: normal inspection, EOMI, PERRL Neck: supple, Trachea midline Respiratory/Chest: Normal breath sounds, CTA Cardiovascular: Irregularly Irregular, Tachycardia, No murmur Abdomen/GI:Soft, Non tender, Bowel sounds present Extremities/Musculoskelatal:normal inspection, no edema Neurologic/Psych:AAOX3, grossly no focal neurological deficits Skin: normal color, warm Lab data as noted below. ASSESSMENT & PLAN: Pericarditis with large Pericardial effusion: In setting of Xarelto use DD: Microperforation, Viral pericarditis Afib RVR No signs of Tamponade on bedside ECHO H/O Recent dual-chamber pacemaker for tachybrady syndrome Xarelto discontinued Monitor Hb Appreciate Cardiology Input Procalcitonin Normal TSH, Free T4: Normal Pacemaker Interrogation planned today Started on Amiodarone ggt and colchicine, Ibuprofen Planned to be transferred to [facility] when bed available H/O SSS S/P PPM, On Xarelto for anticoagulation continue Metoprolol Hypertension: stable continue current meds monitor Hyponatremia Acute renal failure Likely prerenal IV fluids Cr levels back to normal monitor renal function while on Ibuprofen monitor sodium levels Hyperthyroidism: Normal thyroid function test continue methimazole Leukocytosis: Normal Procalcitonin UA pending CXR: No signs of consolidation No obvious source of infection Past tobacco abuse. DVT Px: SCDs. Re:Large Pericardial effusion Code Status Full code Disposition: Monitor in ICU Planned to discharged to [facility] when bed available Accepting Physician: Vital Signs: Date Time Temp Pulse Resp B/P (MAP) Pulse Ox O2 Delivery O2 Flow Rate FiO2 05/09/17 10:00 116 22 129/74 (92) 97 05/09/17 08:00 Room Air 05/09/17 08:00 36.5 133 22 111/89 (96) 98 Room Air 05/09/17 08:00 Room Air 05/09/17 06:02 126 100/77 (85) 96 05/09/17 06:00 125 95 05/09/17 05:05 133 134/78 (96) 97 05/09/17 05:04 125 130/90 (103) 96 05/09/17 05:01 130 145/102 (116) 97 05/09/17 05:00 129 97 05/09/17 04:13 98 Room Air 05/09/17 04:01 36.7 122 25 155/76 (102) 95 05/09/17 04:00 61 13 96 05/09/17 03:00 72 96 05/09/17 02:02 63 19 116/72 (87) 95 05/09/17 02:00 67 23 95 05/09/17 01:01 71 14 157/75 (102) 96 05/09/17 01:01 71 14 157/75 (102) 96 05/09/17 01:00 66 23 96 05/09/17 01:00 66 23 96 05/09/17 00:02 71 16 140/84 (102) 96 05/09/17 00:00 98 Room Air 05/09/17 00:00 70 18 96 05/08/17 23:15 36.5 74 18 119/81 98 Room Air 05/08/17 23:07 74 19 119/81 (94) 98 05/08/17 22:30 73 18 122/62 98 Room Air 05/08/17 21:30 72 18 110/77 97 Room Air 05/08/17 21:00 72 18 126/84 98 Room Air 05/08/17 21:00 74 18 126/84 97 Room Air 05/08/17 20:49 155 05/08/17 20:47 75 18 134/79 98 Room Air 05/08/17 20:46 151 05/08/17 20:32 78 18 115/74 98 Room Air 05/08/17 20:24 76 18 113/74 98 Room Air 05/08/17 20:23 98 Room Air 05/08/17 20:23 98 Room Air 05/08/17 19:44 36.6 81 18 107/70 99 Room Air Lab Results: Results Past 24 Hours Test 05/08/17 20:17 05/08/17 20:24 05/08/17 23:12 05/09/17 04:48 Range/Units White Blood Count 14.35 13.09 4.8-10.8 K/uL Red Blood Count 3.93 3.72 4.2-5.4 M/uL Hemoglobin 13.3 12.6 12.0-16.0 g/dL Hematocrit 37.7 35.4 37-47 % Mean Corpuscular Volume 95.9 95.2 80-100 fL Mean Corpuscular Hemoglobin 33.8 33.9 25-34 pg Mean Corpuscular Hemoglobin Concent 35.3 35.6 32-36 g/dl Platelet Count 193 174 130-400 K/uL Mean Platelet Volume 10.5 10.8 7.4-10.4 fL Neutrophils (%) (Auto) 75.2 50.7 % Lymphocytes (%) (Auto) 14.5 31.9 % Monocytes (%) (Auto) 9.8 16.3 % Eosinophils (%) (Auto) 0.1 0.5 % Basophils (%) (Auto) 0.1 0.2 % Neutrophils # (Auto) 10.81 6.64 1.4-6.5 K/uL Lymphocytes # (Auto) 2.08 4.17 1.2-3.4 K/uL Monocytes # (Auto) 1.40 2.14 0.11-0.59 K/uL Eosinophils # (Auto) 0.01 0.07 0-0.5 K/uL Basophils # (Auto) 0.01 0.02 0-0.2 K/uL RDW Standard Deviation 43.4 43.5 36.4-46.3 fL RDW Coefficient of Variation 12.3 12.5 11.5-14.5 % Immature Granulocyte % (Auto) 0.3 0.4 % Immature Granulocyte # (Auto) 0.04 0.05 0.00-0.02 K/uL Erythrocyte Sedimentation Rate 4 0-21 mm/hr Prothrombin Time 12.6 9.0-12.0 SECONDS Prothromb Time International Ratio 1.2 0.9-1.1 Activated Partial Thromboplast Time 30.0 21.0-31.0 SECONDS Partial Thromboplastin Ratio 1.2 Sodium Level 126 127 129 136-145 mmol/L Potassium Level 4.7 4.8 3.5-5.1 mmol/L Chloride Level 91 97 98-107 mmol/L Carbon Dioxide Level 27 24 21-32 mmol/L Anion Gap 7.0 8.0 3-11 mmol/L Blood Urea Nitrogen 18 18 7-18 mg/dl Creatinine 1.38 0.80 0.60-1.20 mg/dl Est Creatinine Clear Calc Drug Dose 33.3 52.1 ml/min Estimated GFR () 44.8 86.6 Estimated GFR (Non- 38.6 74.7 BUN/Creatinine Ratio 13.0 22.7 10-20 Random Glucose 179 102 70-99 mg/dl Estimated Average Glucose 100 mg/dl Hemoglobin A1c 5.1 4.5-5.6 % Osmolality 270 280-300 mOsm/kg Lactic Acid Level 2.6 1.8 0.4-2.0 mmol/L Calcium Level 8.7 8.3 8.5-10.1 mg/dl Magnesium Level 2.0 2.1 1.8-2.4 mg/dl Total Bilirubin 0.8 0.2-1 mg/dl Direct Bilirubin 0.2 0-0.2 mg/dl Aspartate Amino Transf (AST/SGOT) 19 15-37 U/L Alanine Aminotransferase (ALT/SGPT) 23 12-78 U/L Alkaline Phosphatase 108 45-117 U/L Total Creatine Kinase 61 26-192 U/L Troponin I < 0.015 0-0.045 ng/ml Total Protein 7.0 6.4-8.2 gm/dl Albumin 3.5 3.4-5.0 gm/dl Lipase 104 73-393 U/L Procalcitonin < 0.05 0-0.5 ng/ml Lyme Disease IgG Antibody NEG NEG Influenza Type A (RT-PCR) Neg for Influ A NEG Influenza Type A Antigen Neg for Influ A NEG Influenza Type B Antigen Neg for Influ B NEG Influenza Type B (RT-PCR) Neg for Influ B NEG C-Reactive Protein 5.46 0-0.29 mg/dl Test 05/09/17 05:12 05/09/17 05:22 05/09/17 08:30 Range/Units Bedside Glucose 113 125 70-90 mg/dl Thyroid Stimulating Hormone (TSH) 0.993 0.300-4.500 uIu/ml Free Thyroxine 0.99 0.80-1.60 ng/dl Total Triiodothyronine 0.93 0.60-1.81 ng/ml Microbiology Results 05/08/17 Blood Culture, Received Pending 05/08/17 Blood Culture, Received Pending 05/08/17 MRSA DNA Surveillance Screen - Final, Complete Specimen Negative for MRSA by DNA Probe
--- NOTE | 2017-05-09 13:05 | Critical Care Consultation ---
Critical Care Consultation Date of Consultation: May 09, 2017. Attending Physician: Richmond Winn MD Reason for Consultation: pericardial effusion History of Present Illness This is a 71 year-old female with h/o a-fib with tachy-jamar syndrome, s/p ablation followed by PPM insertion in mid-March 2017, on Xarelto, came to ED yesterday for chest discomfort while working out. She also complained of some malaise, body aches for couple of days, some chills as well. Denies shortness fo breath, denies palpitations, denies loss of consciousness or dizziness In ED, echo showed pericardial effusion Today, in the ICU she was started on an amiodarone drip for a-fib/a-flutter Past Medical/Surgical History Tachy-jamar syndrome S/p PPM Family History FH: atrial fibrillation SISTER Social History Smoking Status: Former Smoker Allergies Coded Allergies: BEE STING (Unverified Allergy, Intermediate, ., 05/08/17) Home Medications Scheduled Amlodipine (Norvasc), 5 MG PO DAILY Ascorbic Acid (Vitamin C), 500 MG PO DAILY Methimazole (Methimazole ), 5 MG PO DIRECTED Metoprolol Succinate (Metoprolol Succinate ER), 25 MG PO QAM Multivitamin (Multivitamin), 1 TAB PO DAILY Rivaroxaban (Xarelto), 20 MG PO QPM Current Inpatient Medications Current Inpatient Medications Medications (Trade) Dose Ordered Sig/Carmelo Route Start Time Stop Time Status Last Admin Dose Admin Acetaminophen (Tylenol Tab) 650 mg Q4H PRN PO 05/08/17 23:00 06/07/17 22:59 Lorazepam (Ativan Inj) 0.5 mg Q4H PRN IV 05/08/17 23:00 06/07/17 22:59 Miscellaneous Information (Icu Protocol For Hyperglycemia) 1 ea PRN PRN N/A 05/08/17 23:00 05/10/17 22:59 Amlodipine Besylate (Norvasc Tab) 5 mg DAILY PO 05/09/17 09:00 06/08/17 08:59 05/09/17 07:32 5 MG Methimazole (Methimazole Tab) 2.5 mg BID PO 05/09/17 09:00 06/08/17 08:59 05/09/17 09:06 2.5 MG Multivitamins (Multivitamin Tab) 1 tab DAILY PO 05/09/17 09:00 06/08/17 08:59 05/09/17 07:31 1 TAB Prochlorperazine Edisylate 5 mg/ Syringe 5 ml @ 5 mls/min Q6H PRN IV 05/08/17 23:00 06/07/17 22:59 Tramadol HCl (Ultram Tab) 25 mg Q6H PRN PO 05/08/17 23:00 06/07/17 22:59 Hydromorphone HCl (Dilaudid Inj) 0.5 mg Q3H PRN IV 05/08/17 23:00 05/22/17 22:59 Sodium Chloride 1,000 ml @ 75 mls/hr [id number] IV 05/09/17 00:15 06/08/17 00:14 05/09/17 01:49 75 MLS/HR Lorazepam 0.5 mg/ Syringe 1 ml @ 1 mls/min Q4H PRN IV 05/09/17 01:15 06/08/17 01:14 Metoprolol Succinate (Toprol Xl Tab) 25 mg QAM PO 05/10/17 09:00 06/08/17 08:59 Colchicine (Colchicine Tab) 0.6 mg BID PO 05/09/17 21:00 06/08/17 20:59 Ibuprofen (Advil Tab) 400 mg TID PO 05/09/17 14:00 06/08/17 13:59 Amiodarone HCL/ Dextrose 200 ml @ 33.3 mls/hr Q6H1M IV 05/09/17 09:45 05/09/17 15:45 05/09/17 09:33 33.3 MLS/HR Amiodarone HCL/ Dextrose 200 ml @ 16.7 mls/hr [id number] IV 05/09/17 15:45 06/08/17 15:44 Pantoprazole Sodium (Protonix Tab) 40 mg QAM PO 05/10/17 09:00 06/09/17 08:59 Review of Systems Per HPI, all other systems reviewed and negative Physical Exam Date Time Temp Pulse Resp B/P (MAP) Pulse Ox O2 Delivery O2 Flow Rate FiO2 05/09/17 12:00 Room Air 05/09/17 12:00 36.5 102 22 128/74 (92) 98 Room Air 05/09/17 10:00 116 22 129/74 (92) 97 05/09/17 08:00 Room Air 05/09/17 08:00 Room Air 05/09/17 08:00 36.5 133 22 111/89 (96) 98 Room Air 05/09/17 08:00 Room Air 05/09/17 06:02 126 100/77 (85) 96 05/09/17 06:00 125 95 05/09/17 05:05 133 134/78 (96) 97 05/09/17 05:04 125 130/90 (103) 96 05/09/17 05:01 130 145/102 (116) 97 05/09/17 05:00 129 97 05/09/17 04:13 98 Room Air 05/09/17 04:01 36.7 122 25 155/76 (102) 95 05/09/17 04:00 61 13 96 05/09/17 03:00 72 96 05/09/17 02:02 63 19 116/72 (87) 95 05/09/17 02:00 67 23 95 05/09/17 01:01 71 14 157/75 (102) 96 05/09/17 01:01 71 14 157/75 (102) 96 05/09/17 01:00 66 23 96 05/09/17 01:00 66 23 96 05/09/17 00:02 71 16 140/84 (102) 96 05/09/17 00:00 98 Room Air 05/09/17 00:00 70 18 96 05/08/17 23:15 36.5 74 18 119/81 98 Room Air 05/08/17 23:07 74 19 119/81 (94) 98 05/08/17 22:30 73 18 122/62 98 Room Air 05/08/17 21:30 72 18 110/77 97 Room Air 05/08/17 21:00 72 18 126/84 98 Room Air 05/08/17 21:00 74 18 126/84 97 Room Air 05/08/17 20:49 155 05/08/17 20:47 75 18 134/79 98 Room Air 05/08/17 20:46 151 05/08/17 20:32 78 18 115/74 98 Room Air 05/08/17 20:24 76 18 113/74 98 Room Air 05/08/17 20:23 98 Room Air 05/08/17 20:23 98 Room Air 05/08/17 19:44 36.6 81 18 107/70 99 Room Air General: NAD, no distress Heent: NC/AT Lungs: clear to auscultation bilaterally CVS:S1S2 irregularly irregular, no rub, no murmur Abdomen: Soft, non-tender, non-distended Extremities: No edema VETERINARY DENTIST:AAO x 3, no motor deficit Laboratory Results Last 24 Hours Test 05/08/17 20:17 05/08/17 20:24 05/08/17 23:12 05/09/17 04:48 White Blood Count 14.35 K/uL 13.09 K/uL Red Blood Count 3.93 M/uL 3.72 M/uL Hemoglobin 13.3 g/dL 12.6 g/dL Hematocrit 37.7 % 35.4 % Mean Corpuscular Volume 95.9 fL 95.2 fL Mean Corpuscular Hemoglobin 33.8 pg 33.9 pg Mean Corpuscular Hemoglobin Concent 35.3 g/dl 35.6 g/dl Platelet Count 193 K/uL 174 K/uL Mean Platelet Volume 10.5 fL 10.8 fL Neutrophils (%) (Auto) 75.2 % 50.7 % Lymphocytes (%) (Auto) 14.5 % 31.9 % Monocytes (%) (Auto) 9.8 % 16.3 % Eosinophils (%) (Auto) 0.1 % 0.5 % Basophils (%) (Auto) 0.1 % 0.2 % Neutrophils # (Auto) 10.81 K/uL 6.64 K/uL Lymphocytes # (Auto) 2.08 K/uL 4.17 K/uL Monocytes # (Auto) 1.40 K/uL 2.14 K/uL Eosinophils # (Auto) 0.01 K/uL 0.07 K/uL Basophils # (Auto) 0.01 K/uL 0.02 K/uL RDW Standard Deviation 43.4 fL 43.5 fL RDW Coefficient of Variation 12.3 % 12.5 % Immature Granulocyte % (Auto) 0.3 % 0.4 % Immature Granulocyte # (Auto) 0.04 K/uL 0.05 K/uL Erythrocyte Sedimentation Rate 4 mm/hr Prothrombin Time 12.6 SECONDS Prothromb Time International Ratio 1.2 Activated Partial Thromboplast Time 30.0 SECONDS Partial Thromboplastin Ratio 1.2 Sodium Level 126 mmol/L 127 mmol/L 129 mmol/L Potassium Level 4.7 mmol/L 4.8 mmol/L Chloride Level 91 mmol/L 97 mmol/L Carbon Dioxide Level 27 mmol/L 24 mmol/L Anion Gap 7.0 mmol/L 8.0 mmol/L Blood Urea Nitrogen 18 mg/dl 18 mg/dl Creatinine 1.38 mg/dl 0.80 mg/dl Est Creatinine Clear Calc Drug Dose 33.3 ml/min 52.1 ml/min Estimated GFR () 44.8 86.6 Estimated GFR (Non- 38.6 74.7 BUN/Creatinine Ratio 13.0 22.7 Random Glucose 179 mg/dl 102 mg/dl Estimated Average Glucose 100 mg/dl Hemoglobin A1c 5.1 % Osmolality 270 mOsm/kg Lactic Acid Level 2.6 mmol/L 1.8 mmol/L Calcium Level 8.7 mg/dl 8.3 mg/dl Magnesium Level 2.0 mg/dl 2.1 mg/dl Total Bilirubin 0.8 mg/dl Direct Bilirubin 0.2 mg/dl Aspartate Amino Transf (AST/SGOT) 19 U/L Alanine Aminotransferase (ALT/SGPT) 23 U/L Alkaline Phosphatase 108 U/L Total Creatine Kinase 61 U/L Troponin I < 0.015 ng/ml Total Protein 7.0 gm/dl Albumin 3.5 gm/dl Lipase 104 U/L Procalcitonin < 0.05 ng/ml Lyme Disease IgG Antibody NEG Influenza Type A (RT-PCR) Neg for Influ A Influenza Type A Antigen Neg for Influ A Influenza Type B Antigen Neg for Influ B Influenza Type B (RT-PCR) Neg for Influ B C-Reactive Protein 5.46 mg/dl Test 05/09/17 05:12 05/09/17 05:22 05/09/17 08:30 05/09/17 11:20 Bedside Glucose 113 mg/dl 125 mg/dl 135 mg/dl Thyroid Stimulating Hormone (TSH) 0.993 uIu/ml Free Thyroxine 0.99 ng/dl Total Triiodothyronine 0.93 ng/ml Test 05/09/17 11:40 Urine Color YELLOW Urine Appearance CLEAR Urine pH 5.5 Urine Specific [place] 1.008 Urine Protein NEG Urine Glucose (UA) NEG Urine Ketones NEG Urine Occult Blood NEG Urine Nitrite NEG Urine Bilirubin NEG Urine Urobilinogen NEG Urine Leukocyte Esterase NEG Assessment & Plan Impression: Pericardial effusion Possible pericarditis A-fib with RVR Tachy-jamar syndrome Plan: Started on amiodarone for rate control Holding anticoagulation for now in case this is hemorrhagic or in case she needs a drain For transfer to [facility] for further management Cardiology consult noted Added colchicine and ibuprofen Critical care time spent with the patient, reviewing chart, discussing with consultants, excluding procedures, greater than 30 minutes
--- NOTE | 2017-05-09 13:59 | Discharge Instructions ---
Discharge Instructions Date of Service May 09, 2017. Admission Reason for Admission: Pericardial Effusion Discharge Discharge Diagnosis / Problem: Pericarditis with large pericardial effusion Discharge Goals Goal(s): Decrease discomfort, Improve function Activity Recommendations Activity Level: Bedrest . Additional Information Patient informed of condition: Yes Advance Directives: No DNR: No Level of Care: Other Communicable Disease: No Prognosis: Stable Instructions / Follow-Up Instructions / Follow-Up Follow up with your [facility] in [facility] for further management is the accepting Physician at [facility] Current Hospital Diet Patient's current hospital diet: Clear Liquid Diet Discharge Diet Recommended Diet: Clear Liquid Diet, AHA Diet (Heart Healthy) Pending Studies Studies pending at discharge: no Laboratory Results Hemoglobin A1c Test 05/08/17 20:17 Range/Units Estimated Average Glucose 100 mg/dl Hemoglobin A1c 5.1 4.5-5.6 % Medical Emergencies . Who to Call and When: Medical Emergencies: If at any time you feel your situation is an emergency, please call 911 immediately. . Non-Emergent Contact Non-Emergency issues call your: Primary Care Provider, Director Of Neurology Call Non-Emergent contact if: you have a fever, your pain is not controlled, your pain is worsening, your pain is unusual for you, your pain is concerning you, you have any medication questions Seek immediate medical attention if your symptoms reoccur or worsen . . "Provider Documentation" section prepared by Richmond Winn. . Core Measure Problem Core Measures: None
[2017-05-09] MEDS ORDERED: IBUPROFEN 200 MG TAB PO SCH (14:00)
--- NOTE | 2017-05-09 14:05 | Discharge Summary ---
Discharge Summary Date of Service May 09, 2017. Discharge Summary Admission Date: May 08, 2017 at 21:54 Discharge Date: May 09, 2017 Discharge Disposition: Acute care facility ([facility]) Principal Diagnosis: Pericarditis with large pericardial effusion Procedures: CXR: 1. Cardiomegaly and cardiac pacemaker. There is no radiographic evidence of congestive failure. 2. No airspace consolidation or large pleural effusion is identified. Consultations: Weir Fisherman, Rn Progressive Care Pending Studies/Follow-Up: Follow up with your Gate Agent in [facility] for further management is the accepting Physician at [facility] Please review paper medication reconciliation for complete med rec Medication Reconciliation Continued Medications: Amlodipine (Norvasc) 5 Mg Tab 5 MG PO DAILY, TAB Ascorbic Acid (Vitamin C) 500 Mg Tab 500 MG PO DAILY Methimazole (Methimazole ) 5 Mg Tab 5 MG PO DIRECTED 1/2 OF A 5 MG TABLET BID Metoprolol Succinate (Metoprolol Succinate ER) 25 Mg Tabcr 25 MG PO QAM for 30 Days, #30 EA 1 Refill Multivitamin (Multivitamin) Tab 1 TAB PO DAILY, TAB Discontinued Medications: Rivaroxaban (Xarelto) 20 Mg Tab 20 MG PO QPM, TAB Admission Information HPI (per Admitting provider): HISTORY OF PRESENT ILLNESS: History obtained from patient and records. Medical history significant for SSS sp PPM on Xarelto, HTN, hyperthyroidism, Past tobacco abuse. 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 2D echo showed EF of 60%, LVH, aortic valve sclerosis, small loculated anterior pericardial effusion adjacent to the right atrium, no hemodynamic significance. Two days history of aches, malaise, poor appetite, some chills, substernal discomfort, nonradiating, pleuritic. No shortness of breath. Denies cough symptoms. Denies tick bites. Patient concerned about having done strenuous stretching using a chest press machine during workouts. Patient brought to the Emergency Room. Patient found to have pericardial effusion without tamponade on TTE, composition roll maker and cutter sap pp consultant recommended transfer to [facility] given PPM history. Patient accepted transfer by [facility] devops consultant sap pp consultant as per ER provider pending bed availability. Physical Exam (per Admitting): PHYSICAL EXAMINATION: VITAL SIGNS: Blood pressure was noted to be 134/75, pulse rate 79, RR 18, temperature 36.5, sats 98 on room air. GENERAL: Noted to be pleasant, no distress, slightly anxious. SKIN: Normal color, warm. HEENT: [place] palpebral conjunctivae. No ptosis. Dry mucosa. NECK: Supple, nontender. CHEST: Clear to auscultation. Substernal tenderness. HEART: Regular rate and rhythm, no murmur. ABDOMEN: Soft, nontender. EXTREMITIES: No edema, no deformities. No tenderness. NEUROLOGIC: Coherent. No gross focality. Hospital Course Pericarditis with large Pericardial effusion: In setting of Xarelto use DD: Microperforation, Viral pericarditis Afib RVR No signs of Tamponade on bedside ECHO H/O Recent dual-chamber pacemaker for tachybrady syndrome Xarelto discontinued Monitor Hb Appreciate Cardiology Input Procalcitonin Normal TSH, Free T4: Normal Pacemaker Interrogation planned today Started on Amiodarone ggt and colchicine, Ibuprofen Patient was transferred to [facility] for further management by Gate Agent H/O SSS S/P PPM, On Xarelto for anticoagulation continue Metoprolol Hypertension: stable continue current meds monitor Hyponatremia Acute renal failure Likely prerenal IV fluids Cr levels back to normal monitor renal function while on Ibuprofen monitor sodium levels Hyperthyroidism: Normal thyroid function test continue methimazole Leukocytosis: Normal Procalcitonin UA pending CXR: No signs of consolidation No obvious source of infection Past tobacco abuse. DVT Px: SCDs. Re:Large Pericardial effusion Code Status Full code Disposition: Monitor in ICU Discharged to [facility] Accepting Physician: Total time spent on discharge = 35 minutes This includes examination of the patient, discharge planning, medication reconciliation, and communication with other providers. Discharge Instructions Discharge Instructions Date of Service May 09, 2017. Admission Reason for Admission: Pericardial Effusion Discharge Discharge Diagnosis / Problem: Pericarditis with large pericardial effusion Discharge Goals Goal(s): Decrease discomfort, Improve function Activity Recommendations Activity Level: Bedrest . Additional Information Patient informed of condition: Yes Advance Directives: No DNR: No Level of Care: Other Communicable Disease: No Prognosis: Stable Instructions / Follow-Up Instructions / Follow-Up Follow up with your Gate Agent in [facility] for further management is the accepting Physician at [facility] Current Hospital Diet Patient's current hospital diet: Clear Liquid Diet Discharge Diet Recommended Diet: Clear Liquid Diet, AHA Diet (Heart Healthy) Pending Studies Studies pending at discharge: no Laboratory Results Hemoglobin A1c Test 05/08/17 20:17 Range/Units Estimated Average Glucose 100 mg/dl Hemoglobin A1c 5.1 4.5-5.6 % Medical Emergencies . Who to Call and When: Medical Emergencies: If at any time you feel your situation is an emergency, please call 911 immediately. . Non-Emergent Contact Non-Emergency issues call your: Primary Care Provider, Weir Fisherman Call Non-Emergent contact if: you have a fever, your pain is not controlled, your pain is worsening, your pain is unusual for you, your pain is concerning you, you have any medication questions Seek immediate medical attention if your symptoms reoccur or worsen . . "Provider Documentation" section prepared by Richmond Winn. . Core Measure Problem Core Measures: None
--- NOTE | 2017-05-09 18:41 | ECHOCARDIOGRAM REPORT ---
*NOTICE TO RECEIVING REPUBLICAN AGENCY This information is strictly Confidential and protected under [place] law. [place] law prohibits you from making any further disclosure of this information unless further disclosure is expressly permitted by the written consent of the person to whom it pertains or is authorized by law. A general authorization for the release of medical or other information is not sufficient for this purpose. Hospital accepts no responsibility if the information is made available to any other person, INCLUDING THE PATIENT. Interpretation Summary * Name: KAITLIN MOYER I Study Date: 05/09/2017 06:43 AM BP: 100/77 mmHg * Patient Location: [facility]\S\E101\S\1 HR: 133 * : 1945 (M/d/yyyy) Gender: Female Height: 66 in * Age: 71 yrs Ethnicity: [place] Weight: 122 lb * Ordering Physician: Kale Kim * Referring Physician: Self, Referred * Performed By: Kaitlin Gonzalez RDCS * * Reason For Study: PERICARDIAL DISEASE * BSA: 1.6 m2 * -- Conclusions -- * The patient is in atrial fibrillation during the study. * Large pericardial effusion. * There is no diastolic compression of the right ventricle to suggest cardiac tamponade. * There are no echocardiographic indications of cardiac tamponade. * The left ventricle is hyperdynamic. * Ejection Fraction = >70 %. * No significant valvular pathology. Procedure Details * A complete two-dimensional transthoracic echocardiogram was performed (2D, M-mode, Doppler and color flow Doppler). Left Ventricle * The left ventricle is normal in size. * There is normal left ventricular wall thickness. * Ejection Fraction = >70 %. * The left ventricle is hyperdynamic. Right Ventricle * The right ventricle is normal size. * The right ventricular systolic function is normal. Atria * The left atrial size is normal. * Right atrial size is normal. * No ASD detected; PFO is not assessed. Mitral Valve * The mitral valve anatomy is normal. * Significant mitral regurgitation is absent. Tricuspid Valve * The tricuspid valve anatomy is normal. * Significant tricuspid regurgitation is absent. Aortic Valve * The aortic valve is tricuspid. The leaflet thickness if normal. There is no aortic stenosis, and no significant insufficiency. * No hemodynamically significant valvular aortic stenosis. * There is no significant aortic regurgitation. Pulmonic Valve * The pulmonic valve is not well visualized. Pericardium/Pleural * Large pericardial effusion. * There is no diastolic compression of the right ventricle to suggest cardiac tamponade. * There are no echocardiographic indications of cardiac tamponade. MMode 2D Measurements and Calculations IVSd 1.0 cm IVSs 1.4 cm LVIDd 2.4 cm LVIDs 1.3 cm LVPWd 1.2 cm LVPWs 1.6 cm IVS/LVPW 0.85 FS 44.2 % EDV(Teich) 20.3 ml ESV(Teich) 4.5 ml EF(Teich) 77.7 % EDV(cubed) 13.9 ml ESV(cubed) 2.4 ml EF(cubed) 82.6 % % IVS thick 34.4 % % LVPW thick 28.7 % LV mass(C)d 75.0 grams LV mass(C)dI 46.3 grams/m\S\2 LV mass(C)s 66.8 grams LV mass(C)sI 41.2 grams/m\S\2 SV(Teich) 15.8 ml SI(Teich) 9.7 ml/m\S\2 SV(cubed) 11.5 ml SI(cubed) 7.1 ml/m\S\2 Ao root diam 2.7 cm Ao root area 5.6 cm\S\2 LA dimension 2.8 cm LA/Ao 1.1 LVAd ap4 15.4 cm\S\2 LVLd ap4 6.3 cm EDV(MOD-sp4) 31.3 ml EDV(sp4-el) 32.3 ml LVAs ap4 8.1 cm\S\2 LVLs ap4 5.6 cm ESV(MOD-sp4) 11.2 ml ESV(sp4-el) 9.9 ml EF(MOD-sp4) 64.3 % EF(sp4-el) 69.2 % LVAd ap2 12.2 cm\S\2 LVLd ap2 5.7 cm EDV(MOD-sp2) 22.1 ml EDV(sp2-el) 22.3 ml LVAs ap2 6.2 cm\S\2 LVLs ap2 4.9 cm ESV(MOD-sp2) 6.8 ml ESV(sp2-el) 6.7 ml EF(MOD-sp2) 69.3 % EF(sp2-el) 70.0 % LVLd %diff -9.72 % EDV(MOD-bp) 27.1 ml LVLs %diff -14.56 % ESV(MOD-bp) 8.8 ml EF(MOD-bp) 67.5 % SV(MOD-sp4) 20.2 ml SI(MOD-sp4) 12.4 ml/m\S\2 SV(MOD-sp2) 15.3 ml SI(MOD-sp2) 9.5 ml/m\S\2 SV(MOD-bp) 18.2 ml SI(MOD-bp) 11.3 ml/m\S\2 SV(sp4-el) 22.4 ml SI(sp4-el) 13.8 ml/m\S\2 SV(sp2-el) 15.6 ml SI(sp2-el) 9.6 ml/m\S\2 Doppler Measurements and Calculations Ao V2 max 138.0 cm/sec Ao max PG 7.6 mmHg Ao max PG (full) 4.2 mmHg LV V1 max PG 3.5 mmHg LV V1 max 93.0 cm/sec TR max george 222.9 cm/sec
[2017-05-09] MEDS ORDERED: COLCHICINE 0.6 MG TAB PO SCH (21:00)
[2017-05-10] MEDS ORDERED: PANTOprazole SOD 40 MG TAB PO SCH (09:00)
[2017-05-10] MEDS ORDERED: METOPROLOL SUCC 25MG EXT REL TAB PO SCH (09:00)
== END 2017-05-09 13:00 | disposition short-term general hospital (02) | DRG 315 ==
LOC: C.EDB 19:42 → C.MSICU 21:54 → ENRESERV 22:10
PROVIDERS: ADMIT Internal Medicine; ATTEND Internal Medicine
DX: I31.9 Disease of pericardium, unspecified (principal); N17.9 Acute kidney failure, unspecified; E87.1 Hypo-osmolality and hyponatremia; Z79.01 Long term (current) use of anticoagulants; I10 Essential (primary) hypertension; Z82.49 Family history of ischemic heart disease and other diseases of the circulatory system; E05.90 Thyrotoxicosis, unspecified without thyrotoxic crisis or storm; I48.0 Paroxysmal atrial fibrillation; E86.0 Dehydration; I49.5 Sick sinus syndrome; Z87.891 Personal history of nicotine dependence; Z95.0 Presence of cardiac pacemaker

== ENCOUNTER 2017-05-24 19:12 | Inpatient (IN) | payer OTHER ==
[~2017-05-24] VITALS: Ht 152.4 cm; Wt 56.8 kg
[~2017-05-24 19:12] MED LIST changes: +ASCA500 PO; +MULT-506 PO; -RIVA1TAB PO; +RIVA1TAB4 PO
--- NOTE | 2017-05-24 19:43 | EMERGENCY ROOM VISIT NOTE ---
History Report prepared by Lew: George Medina Under the Supervision of: Dr. Jerome Vora M.D. First contact with patient: 19:21 Chief Complaint: CHEST PAIN Stated Complaint: CHEST PAIN, SOB History of Present Illness The patient is a 71 year old white female with a past medical history of pericarditis, hyperthyroidism, and atrial fibrillation who presents to the ED with a cc of constant chest pain beginning this morning. She rates her discomfort as an 8/10 in severity. The patient describes her pain as a sharp sensation. She states her pain is worsened with laying down and relieved with sitting up. She reports that her pain is present whenever she breathes deeply. The patient states that she recently was at [place] due to her history of pericarditis. She reports that "they tried to bring the fluid down into her sac with Ibuprofen and Aspirin". The patient states that she was discharged with Aspirin, Ibuprofen, Imodipine, and blood pressure medication. She reports that when she stops taking Aspirin, she is supposed to begin taking Coumadin. Positive SOB. Negative cough, fevers, chills, nausea, vomiting, abnormal bowel movements or urination, leg swelling, abdominal pain. Source of History: patient Onset: this morning Position: chest Symptom Intensity: 8/10 Quality: sharp Timing: constant Modifying Factors (Worsening): other (laying down, deep breaths) Modifying Factors (Relieving): other (sitting up) Associated Symptoms: + SOB, No fevers, No chills, No cough, No nausea, No vomiting, No abdominal pain Note: Negative abnormal bowel movements or urination, leg swelling Review of Systems See HPI for pertinent positives and negatives. A total of ten systems were reviewed and were otherwise negative. Past Medical & Surgical Medical Problems: (1) Pericardial effusion (2) Tachycardia Surgical Problems: (1) Status post ablation of atrial fibrillation Family History FH: atrial fibrillation SISTER Social History Smoking Status: Never Smoker Current/Historical Medications Scheduled Amiodarone Hcl (Cordarone), 200 MG PO DAILY Ascorbic Acid (Ascorbic Acid), 1,000 MG PO DAILY Aspirin (Aspirin), 650 MG PO TID B-Complex Vitamins (Vitamin B Complex), 1 TAB PO DAILY Colchicine (Colchicine), 0.6 MG PO DAILY Cyanocobalamin (Vitamin B12), 1,000 MCG PO DAILY Methimazole (Tapazole), 5 MG PO QAM Methimazole (Tapazole), 2.5 MG PO QPM Metoprolol Succ (Toprol Xl) (Toprol-Xl), 50 MG PO DAILY Multiple Vitamins W/ Minerals (Centrum Silver 50+Women), 1 TAB PO DAILY Allergies Coded Allergies: BEE STING (Unverified Allergy, Intermediate, ., 05/08/17) Physical Exam Vital Signs Date Time Temp Pulse Resp B/P (MAP) Pulse Ox O2 Delivery O2 Flow Rate FiO2 05/24/17 22:16 67 17 111/65 93 Room Air 05/24/17 21:33 65 20 107/54 91 Room Air 05/24/17 20:53 67 20 89/48 92 Room Air 05/24/17 20:14 63 05/24/17 19:33 96 Room Air 05/24/17 19:19 36.8 74 16 125/67 95 Room Air Physical Exam GENERAL: Awake, alert, well-appearing, NAD HENT: Normocephalic, atraumatic. EYES: Normal conjunctiva. Sclera non-icteric. NECK: Supple. No nuchal rigidity. FROM. RESPIRATORY: CTAB, no rhonchi, wheezing, crackles CARDIAC: RRR, no MRG ABDOMEN: Soft, NTND, BS+ MSK: No chest wall TTP, no LE edema, Device in left chest. NEURO: GCS 15, CN 2-12 intact, moves all 4s on command SKIN: No rash or jaundice noted. Medical Decision & Procedures ER Provider Diagnostic Interpretation: X-ray: Per my interpretation, radiologist review. CHEST ONE VIEW PORTABLE HISTORY: Atypical CHEST PAIN COMPARISON: Chest 05/08/2017. FINDINGS: The lungs are clear. The heart is mildly enlarged. This has slightly increased in size. No pleural effusions. No pneumothorax. 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 Left-sided dual-chamber pacemaker. The leads are unchanged in position. IMPRESSION: Mild cardiomegaly which is slightly increased in size. Otherwise, no acute process within the chest. Electronically signed by: Petar Tena M.D. 05/24/2017 7:59 PM Dictated Date/Time: 05/24/2017 7:57 PM Laboratory Results 05/24/17 19:30 Red Blood Count 4.08, Mean Corpuscular Volume 97.3, Mean Corpuscular Hemoglobin 32.8, Mean Corpuscular Hemoglobin Concent 33.8, Mean Platelet Volume 10.5, Neutrophils (%) (Auto) 73.3, Lymphocytes (%) (Auto) 12.8, Monocytes (%) (Auto) 10.1, Eosinophils (%) (Auto) 3.4, Basophils (%) (Auto) 0.3, Neutrophils # (Auto ) 9.77, Lymphocytes # (Auto) 1.71, Monocytes # (Auto) 1.35, Eosinophils # (Auto ) 0.46, Basophils # (Auto) 0.04 05/24/17 19:30 Test 05/24/17 19:30 White Blood Count 13.35 K/uL (4.8-10.8) Red Blood Count 4.08 M/uL (4.2-5.4) Hemoglobin 13.4 g/dL (12.0-16.0) Hematocrit 39.7 % (37-47) Mean Corpuscular Volume 97.3 fL (80-100) Mean Corpuscular Hemoglobin 32.8 pg (25-34) Mean Corpuscular Hemoglobin Concent 33.8 g/dl (32-36) Platelet Count 240 K/uL (130-400) Mean Platelet Volume 10.5 fL (7.4-10.4) Neutrophils (%) (Auto) 73.3 % Lymphocytes (%) (Auto) 12.8 % Monocytes (%) (Auto) 10.1 % Eosinophils (%) (Auto) 3.4 % Basophils (%) (Auto) 0.3 % Neutrophils # (Auto) 9.77 K/uL (1.4-6.5) Lymphocytes # (Auto) 1.71 K/uL (1.2-3.4) Monocytes # (Auto) 1.35 K/uL (0.11-0.59) Eosinophils # (Auto) 0.46 K/uL (0-0.5) Basophils # (Auto) 0.04 K/uL (0-0.2) RDW Standard Deviation 43.9 fL (36.4-46.3) RDW Coefficient of Variation 12.5 % (11.5-14.5) Immature Granulocyte % (Auto) 0.1 % Immature Granulocyte # (Auto) 0.02 K/uL (0.00-0.02) Erythrocyte Sedimentation Rate 3 mm/hr (0-21) Prothrombin Time 10.2 SECONDS (9.0-12.0) Prothromb Time International Ratio 1.0 (0.9-1.1) Activated Partial Thromboplast Time 24.4 SECONDS (21.0-31.0) Partial Thromboplastin Ratio 0.9 Anion Gap 8.0 mmol/L (3-11) Est Creatinine Clear Calc Drug Dose 59.8 ml/min Estimated GFR () 102.2 Estimated GFR (Non- 88.2 BUN/Creatinine Ratio 13.0 (10-20) Calcium Level 8.6 mg/dl (8.5-10.1) Total Bilirubin 0.3 mg/dl (0.2-1) Direct Bilirubin < 0.1 mg/dl (0-0.2) Aspartate Amino Transf (AST/SGOT) 19 U/L (15-37) Alanine Aminotransferase (ALT/SGPT) 24 U/L (12-78) Alkaline Phosphatase 116 U/L (45-117) Troponin I < 0.015 ng/ml (0-0.045) C-Reactive Protein 0.78 mg/dl (0-0.29) Pro-B-Type Natriuretic Peptide 392 pg/ml (0-900) Total Protein 7.3 gm/dl (6.4-8.2) Albumin 3.9 gm/dl (3.4-5.0) Lipase 119 U/L (73-393) Thyroid Stimulating Hormone (TSH) 2.160 uIu/ml (0.300-4.500) Laboratory results reviewed by me Medications Administered Medications (Trade) Dose Ordered Sig/Carmelo Route Start Time Stop Time Status Last Admin Dose Admin Tramadol HCl (Ultram Tab) 50 mg NOW STAT PO 05/24/17 20:35 05/24/17 20:36 DC 05/24/17 20:53 50 MG Prednisone (PredniSONE TAB) 50 mg NOW STAT PO 05/24/17 21:30 05/24/17 21:31 DC 05/24/17 21:55 50 MG ECG Per My Interpretation Indication: chest pain Rate (beats per minute): 89 Rhythm: other (a-paced) Findings: Q waves (Lead III), other (prolonged P-R, normal axis, no other ST changes or TWI) ED Course 1924: The patient was evaluated in room A09B. A complete history and physical exam was performed. 2050: I discussed the patients case with Dr. Holley, [facility] Cardiology. He agrees that the patient should be further evaluated. He recommends high dose NSAIDS and colchicine. He would like the patient to get a new echo in the morning. 2130: I discussed the patient's case with Dr. Holley [facility]. He reports that the patient is already on high dose Aspirin and suggests switching to Prednisone. 2140: I discussed the patients case with Dr. Singer, [facility] Hospitalist. She understands the patients condition and agrees to accept the patient. The patient will be further evaluated. 2144: I reevaluated the patient and discussed her results. I discussed the treatment plan, which she agrees to. The patient will be further evaluated. Medical Decision Prior records/ancillary studies reviewed. Triage Nursing notes reviewed. The patient is a 71 year old white female with a past medical history of pericarditis, hyperthyroidism, and atrial fibrillation who presents to the ED with a cc of constant chest pain beginning this morning. Differential diagnosis: Etiologies such as cardiac ischemia, aortic dissection, pulmonary embolism, pneumonia, pneumothorax, musculoskeletal, infections, pericarditis, myocarditis , esophageal rupture, gastrointestinal, as well as others were entertained. Prior records were reviewed. Of note the patient did have a recent admission for pericarditis and did have a sizable pericardial effusion without tamponade on. Patient was transferred to [facility]. Patient was treated aggressively with colchicine and high-dose aspirin. Patient did not have a pericardial window or other procedure. Of note the patient did have a relatively recent pacemaker placed. Patient was seen and evaluated at the bedside. Patient was complaining of some chest pain as well as some pleuritic discomfort. Patient denies any hemoptysis , lower extremity swelling. Patient denies any exertional symptoms. Patient does note that the pain is somewhat positional as it is worse when she lays down versus when she sits up. Patient has been taking her medications. Patient is currently on high-dose aspirin as well as seen. Patient did have blood work completed, EKG, troponin, chest x-ray. Patient's EKG does not show any diffuse elevations or AR depressions. Patient has no ischemic changes. Patient blood work is fairly unremarkable. Troponin negative. Less likely ACS. Patient's chest x-ray does show increased cardiomegaly. There unfortunately was no ultrasound with a cardiac probe available in the emergency department at this time to evaluate a possible pericardial effusion. However, given the patient's increased cardiomegaly believe the patient would likely benefit from further evaluation and treatment including a repeat echocardiogram given that the patient is currently on standard of care medications for her pericarditis but w/ a possibly enlarged effusion given her CXR. She may be having a recurrence. Patient denies any infectious symptoms. I did discuss the case with the on-call motorcycle police who agrees that the patient should stay for observation repeat echocardiogram. He did recommend starting prednisone at 50 mg and an eventual taper. I did speak with the on-call hospitalist who agreed to further evaluate and treat the patient. Medication Reconcilliation Current Medication List: was personally reviewed by me Blood Pressure Screening Patient's blood pressure: Normal blood pressure Consults Time Called: 1948 Consulting Physician: [facility] Returned Call: 2050 I discussed the patients case with Zoe Hopkins. He agrees that the patient should be further evaluated. He recommends high dose NSAIDS and colchicine. He would like the patient to get a new echo in the morning. Additional Consults: Time Called: 2130 Consulted Physician: [facility] Returned Call: 2130 Additional Comments: I discussed the patient's case with Zoe Hopkins. He reports that the patient is already on high dose Aspirin and suggests switching to Prednisone. Time Called: 2140 Consulted Physician: [facility] Rame[facility] Hospitalist Returned Call: 2140 Additional Comments: I discussed the patients case [facility] She understands the patients condition and agrees to accept the patient. The patient will be further evaluated. Impression Primary Impression: Pericarditis Additional Impressions: Pericardial effusion Chest pain Scribe Attestation The scribe's documentation has been prepared under my direction and personally reviewed by me in its entirety. I confirm that the note above accurately reflects all work, treatment, procedures, and medical decision making performed by me. Departure Information Dispostion Being Evaluated By Hospitalist Referrals No Doctor, Assigned (PCP) Patient Instructions My [facility] Problem Qualifiers Primary Impression: Pericarditis Pericarditis type: unspecified type Chronicity: unspecified Qualified Codes : I31.9 - Disease of pericardium, unspecified Additional Impressions: Chest pain Chest pain type: unspecified Qualified Codes: R07.9 - Chest pain, unspecified
[2017-05-24 19:49] LABS: BASO % 0.3 %; BASO ABS # 0.04 K/uL (0-0.2); EOS % 3.4 %; EOS ABS # 0.46 K/uL (0-0.5); HEMATOCRIT 39.7 % (37-47); HEMOGLOBIN 13.4 g/dL (12.0-16.0); IG# 0.02 K/uL (0.00-0.02); LYMPH % 12.8 %; LYMPH ABS # 1.71 K/uL (1.2-3.4); MEAN CELL VOLUME 97.3 fL (80-100); MEAN CORPUSCULAR HEMOGLOBIN 32.8 pg (25-34); MEAN CORPUSCULAR HGB CONC 33.8 g/dl (32-36); MEAN PLATELET VOLUME 10.5 fL (7.4-10.4); MONO % 10.1 %; MONO ABS # 1.35 K/uL (0.11-0.59); NEUT % 73.3 %; NEUT ABS # 9.77 K/uL (1.4-6.5); PLATELET COUNT 240 K/uL (130-400); RED CELL DISTRIBUTION WIDTH CV 12.5 % (11.5-14.5); RED CELL DISTRIBUTION WIDTH SD 43.9 fL (36.4-46.3); WHITE BLOOD COUNT 13.35 K/uL (4.8-10.8)
[2017-05-24 19:58] LABS: PTT PATIENT 24.4 SECONDS (21.0-31.0)
--- NOTE | 2017-05-24 20:00 | DIAGNOSTIC IMAGING REPORT ---
CHEST ONE VIEW PORTABLE HISTORY: Atypical CHEST PAIN COMPARISON: Chest 05/08/2017. FINDINGS: The lungs are clear. The heart is mildly enlarged. This has slightly increased in size. No pleural effusions. No pneumothorax. 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 Left-sided dual-chamber pacemaker. The leads are unchanged in position. IMPRESSION: Mild cardiomegaly which is slightly increased in size. Otherwise, no acute process within the chest. Electronically signed by: Petar Tena M.D. 05/24/2017 7:59 PM Dictated Date/Time: 05/24/2017 7:57 PM
[2017-05-24 20:08] LABS: ALBUMIN 3.9 gm/dl (3.4-5.0); ALT/SGPT 24 U/L (12-78); BLOOD UREA NITROGEN 9 mg/dl (7-18); CALCIUM 8.6 mg/dl (8.5-10.1); CARBON DIOXIDE 26 mmol/L (21-32); CREATININE 0.69 mg/dl (0.60-1.20); GLUCOSE 120 mg/dl (70-99); LIPASE 119 U/L (73-393); POTASSIUM 3.5 mmol/L (3.5-5.1); SODIUM 134 mmol/L (136-145)
[2017-05-24 20:13] LABS: ALKALINE PHOSPHATASE 116 U/L (45-117); AST/SGOT 19 U/L (15-37); TOTAL PROTEIN 7.3 gm/dl (6.4-8.2)
[2017-05-24] MEDS ORDERED: TRAMADOL HCL 50 MG TAB PO STA (20:35)
[2017-05-24] MEDS ORDERED: COLC0.6T54 PO (21:08)
[2017-05-24] MEDS ORDERED: AMIO200T4 PO (21:08)
[2017-05-24] MEDS ORDERED: MULT-1092 PO (21:08)
[2017-05-24] MEDS ORDERED: ASPI325T45 PO (21:08)
[2017-05-24] MEDS ORDERED: METO25TA3 PO (21:08)
[2017-05-24] MEDS ORDERED: ASCO100061 PO (21:09)
[2017-05-24] MEDS ORDERED: B-COTAB18 PO (21:11)
[2017-05-24] MEDS ORDERED: CYAN100020 PO (21:11)
[2017-05-24] MEDS ORDERED: METH5TAB5 PO ×2 (21:12)
[2017-05-24] MEDS ORDERED: ONDANSETRON INJ 2 MG/ML 2 ML VIAL IV PRN (22:00)
[2017-05-24] MEDS ORDERED: MAGNESIUM HYDROXIDE SUSP 30 ML UDC PO PRN (22:00)
[2017-05-24] MEDS ORDERED: ALUMINUM/MAGNESIUM/SIMETH (MAALOX MAX) 30 ML UDC PO PRN (22:00)
[2017-05-24] MEDS ORDERED: ACETAMINOPHEN 325 MG TAB PO PRN (22:00)
[2017-05-24] MEDS ORDERED: NITROGLYCERIN 0.4 MG SL PER TAB CHARGE SL PRN (22:00)
[2017-05-24] MEDS ORDERED: KETOROLAC TROMETHAMINE 15 MG/ML VIAL IV ONE (22:23)
[2017-05-24] MEDS ORDERED: COLCHICINE 0.6 MG TAB PO ONE ×2 (22:30→23:15)
[2017-05-24] MEDS ORDERED: KETOROLAC TROMETHAMINE 15 MG/ML VIAL IV PRN (22:30)
--- NOTE | 2017-05-24 22:32 | History and Physical ---
History & Physical Date & Time of Service: May 24, 2017 at 22:21 Chief Complaint: Chest Pain, Sob Primary Care Physician: Donaldo Goldstein D.O. History of Present Illness Source: patient This is a 71-year-old female with history of recent pericardial effusion on medical management, history of A. fib status post ablation on 03/18/2017, tachybrady syndrome status post pacemaker placement on 03/22/2017, hypertension, hyperthyroidism Presents to [facility] ER today for ongoing left-sided pleuritic chest pain. Patient mentions that she she woke up approximately 8 AM today felt discomfort in her throat feeling like sore throat, over the period of the day the pain progressed down to her left side of chest. She was having sharp chest pain when taking deep breath, pain was worse with lying flat, better on sitting up. Had shortness of breath/dyspnea on exertion. Did not had any syncope No reports of fever or chills She mentions she was feeling good yesterday All her symptoms started abruptly this morning In ER, she continues to have chest discomfort, pain 8 of the 10 when taking deep breath, improves to 4 out of 10 with shallow breath. She was briefly hypotensive systolic 88 Vitals on on arrival to ER at 19: 19 Blood pressure was 125/67, pulse oximetry 95% on room air Patient became hypotensive BP 88/48 at 20: 53 Improvement of hypotension BP 111/65 at 2216 Patient denies of any dizziness or syncopal episode while in the ER Past Medical/Surgical History Medical Problems: (1) Atrial fibrillation (2) Atrial flutter (3) Bradyarrhythmia (4) Elevated troponin (5) Pericardial effusion (6) Pericarditis (7) Tachycardia Surgical Problems: (1) Status post ablation of atrial fibrillation Family History FH: atrial fibrillation SISTER Social History Smoking Status: Never Smoker Allergies Coded Allergies: BEE STING (Unverified Allergy, Intermediate, ., 05/08/17) Home Medications Scheduled Amiodarone Hcl (Cordarone), 200 MG PO DAILY Ascorbic Acid (Ascorbic Acid), 1,000 MG PO DAILY Aspirin (Aspirin), 650 MG PO TID B-Complex Vitamins (Vitamin B Complex), 1 TAB PO DAILY Colchicine (Colchicine), 0.6 MG PO DAILY Cyanocobalamin (Vitamin B12), 1,000 MCG PO DAILY Methimazole (Tapazole), 5 MG PO QAM Methimazole (Tapazole), 2.5 MG PO QPM Metoprolol Succ (Toprol Xl) (Toprol-Xl), 50 MG PO DAILY Multiple Vitamins W/ Minerals (Centrum Silver 50+Women), 1 TAB PO DAILY Review of Systems Constitutional: No fever, No chills, No sweats, No weight loss, No weakness, No fatigue, No problem reported Eyes: No worsening of vision, No eye pain, No redness, No discharge, No diplopia, No problem reported ENT: No hearing loss, No unusual epistaxis, No nasal symptoms, No sore throat, No tinnitus, No dental problems, No trouble swallowing, No problem reported Respiratory: + shortness of breath, + dyspnea on exertion, + dyspnea at rest Cardiovascular: + chest pain (Sharp pain with taking deep breath ), + orthopnea Abdomen: No pain, No nausea, No vomiting, No diarrhea, No constipation, No GI bleeding, No problem reported Musculoskeletal: No joint pain, No muscle pain, No swelling, No calf pain, No problem reported Neurologic: No memory loss, No paralysis, No weakness, No numbness/tingling, No vertigo, No balance problems, No problem reported Psychiatric: No depression symptoms, No anhedonism, No anxiety, No insomnia, No substance abuse, No problem reported Physical Exam Vital Signs Date Time Temp Pulse Resp B/P (MAP) Pulse Ox O2 Delivery O2 Flow Rate FiO2 05/24/17 22:16 67 17 111/65 93 Room Air 05/24/17 21:33 65 20 107/54 91 Room Air 05/24/17 20:53 67 20 89/48 92 Room Air 05/24/17 20:14 63 05/24/17 19:33 96 Room Air 05/24/17 19:19 36.8 74 16 125/67 95 Room Air General Appearance: + moderate distress (Due to pleuritic chest pain) Head: normocephalic, atraumatic Eyes: normal inspection, PERRL, EOMI, sclerae normal ENT: hearing grossly normal Neck: thyroid normal, no carotid bruits, trachea midline, + JVD (Positive JVD noted more pronounced on the left side) Respiratory/Chest: chest non-tender, lungs clear, normal breath sounds, no respiratory distress Cardiovascular: regular rate, rhythm, no edema, + pertinent finding (Could not appreciate any pericardial rub) Abdomen/GI: normal bowel sounds, non tender, soft Extremities/Musculoskelatal: normal inspection, no pedal edema Neurologic/Psych: alert, oriented x 3, + pertinent finding (Anxious) Skin: normal color, warm/dry, no rash Diagnostics Laboratory Results Results Past 24 Hours Test 05/24/17 19:30 Range/Units White Blood Count 13.35 4.8-10.8 K/uL Red Blood Count 4.08 4.2-5.4 M/uL Hemoglobin 13.4 12.0-16.0 g/dL Hematocrit 39.7 37-47 % Mean Corpuscular Volume 97.3 80-100 fL Mean Corpuscular Hemoglobin 32.8 25-34 pg Mean Corpuscular Hemoglobin Concent 33.8 32-36 g/dl Platelet Count 240 130-400 K/uL Mean Platelet Volume 10.5 7.4-10.4 fL Neutrophils (%) (Auto) 73.3 % Lymphocytes (%) (Auto) 12.8 % Monocytes (%) (Auto) 10.1 % Eosinophils (%) (Auto) 3.4 % Basophils (%) (Auto) 0.3 % Neutrophils # (Auto) 9.77 1.4-6.5 K/uL Lymphocytes # (Auto) 1.71 1.2-3.4 K/uL Monocytes # (Auto) 1.35 0.11-0.59 K/uL Eosinophils # (Auto) 0.46 0-0.5 K/uL Basophils # (Auto) 0.04 0-0.2 K/uL RDW Standard Deviation 43.9 36.4-46.3 fL RDW Coefficient of Variation 12.5 11.5-14.5 % Immature Granulocyte % (Auto) 0.1 % Immature Granulocyte # (Auto) 0.02 0.00-0.02 K/uL Erythrocyte Sedimentation Rate 3 0-21 mm/hr Prothrombin Time 10.2 9.0-12.0 SECONDS Prothromb Time International Ratio 1.0 0.9-1.1 Activated Partial Thromboplast Time 24.4 21.0-31.0 SECONDS Partial Thromboplastin Ratio 0.9 Sodium Level 134 136-145 mmol/L Potassium Level 3.5 3.5-5.1 mmol/L Chloride Level 100 98-107 mmol/L Carbon Dioxide Level 26 21-32 mmol/L Anion Gap 8.0 3-11 mmol/L Blood Urea Nitrogen 9 7-18 mg/dl Creatinine 0.69 0.60-1.20 mg/dl Est Creatinine Clear Calc Drug Dose 59.8 ml/min Estimated GFR () 102.2 Estimated GFR (Non- 88.2 BUN/Creatinine Ratio 13.0 10-20 Random Glucose 120 70-99 mg/dl Calcium Level 8.6 8.5-10.1 mg/dl Total Bilirubin 0.3 0.2-1 mg/dl Direct Bilirubin < 0.1 0-0.2 mg/dl Aspartate Amino Transf (AST/SGOT) 19 15-37 U/L Alanine Aminotransferase (ALT/SGPT) 24 12-78 U/L Alkaline Phosphatase 116 45-117 U/L Troponin I < 0.015 0-0.045 ng/ml C-Reactive Protein 0.78 0-0.29 mg/dl Pro-B-Type Natriuretic Peptide 392 0-900 pg/ml Total Protein 7.3 6.4-8.2 gm/dl Albumin 3.9 3.4-5.0 gm/dl Lipase 119 73-393 U/L Thyroid Stimulating Hormone (TSH) 2.160 0.300-4.500 uIu/ml Diagnostic Radiology CHEST ONE VIEW PORTABLE HISTORY: Atypical CHEST PAIN COMPARISON: Chest 05/08/2017. FINDINGS: The lungs are clear. The heart is mildly enlarged. This has slightly increased in size. No pleural effusions. No pneumothorax. 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 Left-sided dual-chamber pacemaker. The leads are unchanged in position. IMPRESSION: Mild cardiomegaly which is slightly increased in size. Otherwise, no acute process within the chest. Impression Assessment and Plan IDIOPATHIC PERICARDIAL EFFUSION /RECURRENT : -Patient was admitted to [facility] on 05/09/2017 for acute pericarditis and large pericardial effusion was transferred to [facility] patient did not had any intervention/no drainage of fusion was done Medical management recommended Xarelto was discontinued She was discharged on 05/13/2017 with colchicine , high dose aspirin 650 mg 3 times daily for 2 weeks Patient had no symptoms post discharge had an hospital follow-up with Dr Hobbs on 05/20/17 Patient was found to be doing well Echo on 05/20/2017 showed pericardial effusion compared to previous study of 2017; has decreased in size Moderate circumferential pericardial effusion, more pronounced posteriorly. Tamponade is not present Patient presents today with-persistent pleuritic chest pain, shortness of breath , orthopnea Chest x-ray shows globular heart, increased size from previous image inflammatory markers are unremarkable : Is okay it is done discussed with patient and his ESR 3 /mild elevation of pro- calcitonin 0.78 Case discussed with on-call cardiology Dr. Mo Patient will be admitted to ICU for close observation Started on prednisone 50 mg daily Toradol IV 15 mg every 6 scheduled(maximum daily dose 60 mg) Resting echo to assess pericardial effusion Plan of care discussed with ICU team- HTN : episode of hypotension noted in ER Patient remains asymptomatic On Toprol XL 50 mg daily(dose was recently increased during admission in [facility] [place] [place] for A. fib ) Toprol-XL dose reduced to 25 mg daily for borderline hypotension Continue close monitoring of hemodynamics HYPERTHYROIDISM: Continue to Tapazol/methimazole TSH within normal limit PAROXYSMAL AFIB : History of paroxysmal A. fib/atrial flutter Status post ablation in 03/2017 Started on amiodarone on 05/09/2017 due to recurrent PAF in setting of acute pericarditis Toprol XL dose reduced for hypotension Xarelto was discontinued recently for large pericardial effusion Was scheduled to start on Coumadin 5 mg daily on 05/29/2017 after discontinuing high-dose aspirin patient Patient is currently not on any anticoagulation HX OF TACHYBRADY SYNDROME : Status post permanent pacemaker placement FULL CODE DVT PROPHYLAXIS : moderate to high risk Pharmacological anticoagulation avoided, patient may need emergent pericardiocentesis DISPOSITION : expected to be discharged home when medically stable Level of Care Critical Care Resuscitation Status FULL RESUSCITATION VTE Prophylaxis Risk Level: Moderate Given or contraindicated: Jake Díaz, SCD's Additional Copies To Naig Drew M.D. Zazzali, Kathleen M., D.O.
[2017-05-24 23:00] VITALS: BP 116/61; PULSE 69; TEMP 37.4; O2SAT 93; Ht 152.4 cm; Wt 56.8 kg
[2017-05-24] MEDS: KETOROLAC TROMETHAMINE 15 MG/ML VIAL IV SCH (23:47)
[2017-05-25] VITALS (23 sets, daily range): BP systolic 102–127; BP diastolic 55–83; PULSE 60–91; TEMP 36–37.4; O2SAT 92–99
--- NOTE | 2017-05-25 00:04 | Critical Care Consultation ---
Critical Care Consultation Date of Consultation: May 25, 2017. Attending Physician: Annalise Dong M.D. Reason for Consultation: 71-year-old female with a significant recent past medical history of pericardial effusion with new/worsening positional and pleuritic chest discomfort with transient episode of hypotension in the emergency department requiring close hemodynamic monitoring for concerns of worsening effusion and developing tamponade. History of Present Illness 71-year-old female with a significant recent past medical history for pericardial effusion status post ablation procedure and placement of pacemaker. Initially transferred to [facility] early this month for concerns of hemopericardium while on Xarelto. Patient was evaluated and it was felt as though this was just an effusion. She was placed on colchicine as well as aspirin. She had serial echocardiograms locally which showed improvement. The patient reports that she had been doing well up until this morning. She reports that she developed central chest pain which is worse with laying flat or with taking deep breaths. She denies any exertional chest discomfort or shortness of breath. There is been no changes in her medication. She presented to the emergency department where she was evaluated with chest x-ray, EKG, and laboratory assessment. She received dose of Ultram as well as prednisone at the direction of cardiology. She did develop a transient episode of hypotension with a systolic blood pressure in the 80s, however the patient denies being symptomatic at this point. Patient was subsequently directed the ICU for close hemodynamic monitoring in the setting of a possibly worsening pericardial effusion. On evaluation in the ICU, the patient is resting comfortably. She does complain of pain with laying flat her back and with deep inspiration. She currently denies any headaches, dizziness, lightheadedness, palpitations, hemoptysis, shortness of breath, nausea, vomiting, abdominal pain, hematochezia , melena, hematuria, or dysuria. Past Medical/Surgical History Medical Problems: (1) Pericardial effusion (2) Tachycardia Surgical Problems: (1) Status post ablation of atrial fibrillation Family History FH: atrial fibrillation SISTER noncontributory Social History Smoking Status: Former Smoker Smokeless Tobacco Use: No Alcohol Use: none Drug Use: none Marital Status: in relationship Housing Status: lives with family Occupation Status: retired Allergies Coded Allergies: BEE STING (Unverified Allergy, Intermediate, ., 05/08/17) Home Medications Scheduled Amiodarone Hcl (Cordarone), 200 MG PO DAILY Ascorbic Acid (Ascorbic Acid), 1,000 MG PO DAILY Aspirin (Aspirin), 650 MG PO TID B-Complex Vitamins (Vitamin B Complex), 1 TAB PO DAILY Colchicine (Colchicine), 0.6 MG PO DAILY Cyanocobalamin (Vitamin B12), 1,000 MCG PO DAILY Methimazole (Tapazole), 5 MG PO QAM Methimazole (Tapazole), 2.5 MG PO QPM Metoprolol Succ (Toprol Xl) (Toprol-Xl), 50 MG PO DAILY Multiple Vitamins W/ Minerals (Centrum Silver 50+Women), 1 TAB PO DAILY Current Inpatient Medications Current Inpatient Medications Medications (Trade) Dose Ordered Sig/Carmelo Route Start Time Stop Time Status Last Admin Dose Admin Acetaminophen (Tylenol Tab) 650 mg Q4H PRN PO 05/24/17 22:00 06/23/17 21:59 Al Hydrox/Mg Hydrox/Simethicone (Maalox Max Susp) 15 ml Q4H PRN PO 05/24/17 22:00 06/23/17 21:59 Magnesium Hydroxide (Milk Of Magnesia Susp) 30 ml Q12H PRN PO 05/24/17 22:00 06/23/17 21:59 Ondansetron HCl (Zofran Inj) 4 mg Q6H PRN IV 05/24/17 22:00 06/23/17 21:59 Nitroglycerin (Nitrostat Tab) 0.4 mg UD PRN SL 05/24/17 22:00 06/23/17 21:59 Amiodarone HCl (Cordarone Tab) 200 mg DAILY PO 05/25/17 09:00 06/24/17 08:59 Colchicine (Colchicine Tab) 0.6 mg DAILY PO 05/25/17 09:00 06/24/17 08:59 Methimazole (Methimazole Tab) 2.5 mg QPM PO 05/25/17 21:00 06/24/17 20:59 Methimazole (Methimazole Tab) 5 mg QAM PO 05/25/17 09:00 06/24/17 08:59 Multivitamins/ Minerals (Multivitamin W/ Minerals Tab) 1 tab DAILY PO 05/25/17 09:00 06/24/17 08:59 Ascorbic Acid (Vitamin C Tab) 1,000 mg DAILY PO 05/25/17 09:00 06/24/17 08:59 Vitamin B Complex (Vitamin B Complex) 1 tab DAILY PO 05/25/17 09:00 06/24/17 08:59 Cyanocobalamin (Vitamin B-12 Tab) 1,000 mcg DAILY PO 05/25/17 09:00 06/24/17 08:59 Prednisone (PredniSONE TAB) 50 mg DAILY PO 05/25/17 09:00 06/24/17 08:59 Ketorolac Tromethamine (Toradol Inj) 15 mg Q6H IV 05/24/17 23:00 05/29/17 22:59 05/24/17 23:47 15 MG Pantoprazole Sodium (Protonix Tab) 40 mg QAM PO 05/25/17 09:00 05/28/17 09:01 Metoprolol Succinate (Toprol Xl Tab) 25 mg DAILY PO 05/25/17 09:00 06/24/17 08:59 Review of Systems A complete 10-point Review of Systems was discussed with the patient, with pertinent positives and negatives listed in the History of Present Illness. All remaining Review of Systems questions can be considered negative unless otherwise specified. Physical Exam Date Time Temp Pulse Resp B/P (MAP) Pulse Ox O2 Delivery O2 Flow Rate FiO2 05/24/17 23:00 37.4 69 16 116/61 93 Room Air 05/24/17 22:16 67 17 111/65 93 Room Air 05/24/17 21:33 65 20 107/54 91 Room Air 05/24/17 20:53 67 20 89/48 92 Room Air 05/24/17 20:14 63 05/24/17 19:33 96 Room Air 05/24/17 19:19 36.8 74 16 125/67 95 Room Air VITAL SIGNS - Vital signs and nursing notes were reviewed. GENERAL - 71-year-old female appearing her stated age who is in no acute distress. Communicates well with provider and answers questions appropriately. HEAD - NC/AT. EYES - PERRL with EOMI bilaterally. Sclera anicteric. EARS - No deformities of external structures noted on gross examination bilaterally. NOSE - Midline and without cyanosis. MOUTH/OROPHARYNX - Without perioral cyanosis. Buccal mucosa pink and moist and without leukoplakia. NECK - Neck with FROM. Supple to palpation without JVD. LUNGS - Chest wall symmetric without accessory muscle use, intercostals retractions, or central cyanosis. Normal vesicular breath sounds CTA B/L. No wheezes, rales, or rhonchi appreciated. CARDIAC - RRR with S1/S2. No murmur, rubs, or gallops appreciated. No changes in heart sounds w/ changes in position. No reproducible tenderness to palpation appreciated over the anterior chest wall. ABDOMEN - Abdominal contour flat and without pulsations or visible masses. BS normoactive all four quadrants. No tenderness, palpable masses, hepatosplenomegaly, or ascites noted. EXTREMITIES - No clubbing or peripheral cyanosis. No pretibial edema present. +3 /5 radial and dorsalis pedis pulses palpated throughout. +5/5 strength noted in UE/LE bilaterally. NEUROLOGIC - Cranial nerves II through XII grossly intact. Sensory intact to light touch throughout. PSYCH - A&Ox3 and cooperates fully with examiner. Pt is very pleasant and interacts well with examiner. Laboratory Results Last 24 Hours Test 05/24/17 19:30 White Blood Count 13.35 K/uL Red Blood Count 4.08 M/uL Hemoglobin 13.4 g/dL Hematocrit 39.7 % Mean Corpuscular Volume 97.3 fL Mean Corpuscular Hemoglobin 32.8 pg Mean Corpuscular Hemoglobin Concent 33.8 g/dl Platelet Count 240 K/uL Mean Platelet Volume 10.5 fL Neutrophils (%) (Auto) 73.3 % Lymphocytes (%) (Auto) 12.8 % Monocytes (%) (Auto) 10.1 % Eosinophils (%) (Auto) 3.4 % Basophils (%) (Auto) 0.3 % Neutrophils # (Auto) 9.77 K/uL Lymphocytes # (Auto) 1.71 K/uL Monocytes # (Auto) 1.35 K/uL Eosinophils # (Auto) 0.46 K/uL Basophils # (Auto) 0.04 K/uL RDW Standard Deviation 43.9 fL RDW Coefficient of Variation 12.5 % Immature Granulocyte % (Auto) 0.1 % Immature Granulocyte # (Auto) 0.02 K/uL Erythrocyte Sedimentation Rate 3 mm/hr Prothrombin Time 10.2 SECONDS Prothromb Time International Ratio 1.0 Activated Partial Thromboplast Time 24.4 SECONDS Partial Thromboplastin Ratio 0.9 Sodium Level 134 mmol/L Potassium Level 3.5 mmol/L Chloride Level 100 mmol/L Carbon Dioxide Level 26 mmol/L Anion Gap 8.0 mmol/L Blood Urea Nitrogen 9 mg/dl Creatinine 0.69 mg/dl Est Creatinine Clear Calc Drug Dose 59.8 ml/min Estimated GFR () 102.2 Estimated GFR (Non- 88.2 BUN/Creatinine Ratio 13.0 Random Glucose 120 mg/dl Calcium Level 8.6 mg/dl Total Bilirubin 0.3 mg/dl Direct Bilirubin < 0.1 mg/dl Aspartate Amino Transf (AST/SGOT) 19 U/L Alanine Aminotransferase (ALT/SGPT) 24 U/L Alkaline Phosphatase 116 U/L Troponin I < 0.015 ng/ml C-Reactive Protein 0.78 mg/dl Pro-B-Type Natriuretic Peptide 392 pg/ml Total Protein 7.3 gm/dl Albumin 3.9 gm/dl Lipase 119 U/L Thyroid Stimulating Hormone (TSH) 2.160 uIu/ml Diagnostic Results Radiological imaging and reports were reviewed by myself. Radiologist's Interpretation as follows: CHEST ONE VIEW PORTABLE HISTORY: Atypical CHEST PAIN COMPARISON: Chest 05/08/2017. FINDINGS: The lungs are clear. The heart is mildly enlarged. This has slightly increased in size. No pleural effusions. No pneumothorax. 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 Left-sided dual-chamber pacemaker. The leads are unchanged in position. IMPRESSION: Mild cardiomegaly which is slightly increased in size. Otherwise, no acute process within the chest. I did utilize bedside ultrasonography to evaluate the heart. There was noticeable pericardial effusion with small areas of stranding noted. No apparent myocardial compromise per my limited evaluation. Formal echo to follow in the a.m. Assessment & Plan (1) Pleuritic chest pain (2) Hypotension (3) Pericardial effusion (4) Tachycardia Reason Critically Ill: 71-year-old female with a significant recent past medical history of pericardial effusion with new/worsening positional and pleuritic chest discomfort with transient episode of hypotension in the emergency department requiring close hemodynamic monitoring for concerns of worsening effusion and developing tamponade. Neuro - * CAM ICU: Negative * Chest Pain - PRN Toradol Cardiac - * Pericardial Effusion: * Limited bedside echo shows effusion w/ stranding. Good cardiac function appreciated per my evaluation. * EKG without diffuse ST segment elevations noted on priors. No ST/T-wave abnormalities per my interpretation. * CXR concerning for enlargement of heart - worsening effusion. * Received PO dose of 50mg Prednisone in the ED per Cardiology recommendation. * To receive IV Toradol as scheduled. * To continue Colchicine. * BPs remain stable. Monitor closely. * At this point, with the addition of Prednisone, the patient will likely have long-term issues with subsequent reaccumulation of pericardial fluid. Certainly appreciate electronic maintenance supervisor recommendation after formal echo which will provide greater insight. * In the event of concerning hemodynamic instability, will contact online advertising director interventionalist (Dr. Kan). Did not contact immediately given the time of night and patient's current stability. Additionally, CT surgery may be necessary depending on echo findings. Consider Dr. Marrero consultation if available. * Hold on anticoagulation 2/2 likely new accumulation of pericardial fluid. * A-fib: * Pacer/home Rx Respiratory - * Pleuritic pain, however this is much more likely related to reaccumulation of pericardial effusion versus PE or other pathology. Refrain from CTA at this point. Patient oxygenating well at this point. May consider if oxygen requirements change. GI - * NPO at this point w/ possibility of need for intervention. RENAL/LYTES - * No significant electrolyte derangement. * Monitor daily. - * No concerns at this point. ENDO - * No h/o DM * h/y HYPERthyroidism: * Continue home Tapazole HEME - * Stable H&H - continue to monitor. ID - * Slight leukocytosis: * Only slight elevation of CRP. ESR WNL. * Less concerned for infectious component at this time, however, given recent cardiac cath and pacer placement in the setting of pericardial effusion, infection is certainly on the differential. Would anticipate pt to be much more ill, however. * Monitor fever curve. LINES/IV ACCESS - * PIVs intact. DVT PROPHYLAXIS - * Hold on chemoprophylaxis 2/2 possibility of need for intervention and for possibility of developing hemopericardium. Thank you for this consultation allow us to be part of this patient's care. Please refer to my attending physician's documentation for any further recommendations. The patient was seen, examined independently, agree with assessment and plan of my colleague Sav Lazar. The patient is a 71-year-old female with a history of tachybradycardia syndrome status post pacemaker placement, the patient was treated for pericarditis for the past 2 weeks and presented to the hospital with substantial chest pain. Underwent an echocardiogram which showed pericardial effusion. No tamponade physiology. Patient was admitted to the ICU for further management. Today when I interviewed the patient, she did not have any chest pain, asymptomatic from pulmonary and cardiac standpoint. Physical exam revealed S1-S2, regular rate and rhythm, distant breath sounds bilaterally, abdomen is benign, no edema. Ultrasound was done at the bedside which revealed good contractility, small pericardial effusion, no evidence of any tamponade physiology. Impression: Acute pericarditis, treated by cardiology, appreciate their input. Continue with current treatment. The patient apparently stopped aspirin and ibuprofen prior to her admission. Now she is back again on the regimen suggested by Dr. Doshi. The patient will be discharged home. Case discussed with the staff on rounds. Critical care time spent with the patient was 35 minutes.
[2017-05-25] MEDS ORDERED: ICU PROTOCOL FOR HYPERGLYCEMIA PRN (00:15)
[2017-05-25 03:45] LABS: HEMATOCRIT 37.2 % (37-47); HEMOGLOBIN 12.8 g/dL (12.0-16.0); MEAN CELL VOLUME 96.4 fL (80-100); MEAN CORPUSCULAR HEMOGLOBIN 33.2 pg (25-34); MEAN CORPUSCULAR HGB CONC 34.4 g/dl (32-36); MEAN PLATELET VOLUME 10.5 fL (7.4-10.4); PLATELET COUNT 200 K/uL (130-400); RED CELL DISTRIBUTION WIDTH CV 12.6 % (11.5-14.5); RED CELL DISTRIBUTION WIDTH SD 44.1 fL (36.4-46.3); WHITE BLOOD COUNT 11.54 K/uL (4.8-10.8)
[2017-05-25 04:13] LABS: BLOOD UREA NITROGEN 13 mg/dl (7-18); CARBON DIOXIDE 29 mmol/L (21-32); CREATININE 0.76 mg/dl (0.60-1.20); GLUCOSE 172 mg/dl (70-99); POTASSIUM 4.8 mmol/L (3.5-5.1); SODIUM 132 mmol/L (136-145)
[2017-05-25] MEDS: KETOROLAC TROMETHAMINE 15 MG/ML VIAL IV SCH ×2 (05:36→11:00)
--- NOTE | 2017-05-25 07:12 | DIAGNOSTIC IMAGING REPORT ---
CHEST ONE VIEW PORTABLE CLINICAL HISTORY: sob/pericardial effusion dyspnea COMPARISON STUDY: 05/24/2017 FINDINGS: Mild stable cardiomegaly. Permanent bipolar cardiac pacemaker with leads unchanged in position. No evidence of pneumothorax. The lungs are considered clear. Minimal atelectasis left base. IMPRESSION: Moderate stable cardiomegaly. Otherwise unchanged exam. The above report was generated using voice recognition software. It may contain grammatical, syntax or spelling errors. Electronically signed by: Noé Pan M.D. 05/25/2017 7:11 AM Dictated Date/Time: 05/25/2017 7:10 AM
--- NOTE | 2017-05-25 08:56 | Cardiology Consultation ---
Cardiology Consultation Date of Service May 25, 2017. Cardiology Consultation full consult dictated; pt known to me from the office-I just saw her last week. She has acute pericarditisis with pericardial effusion that is improving on repeat echo last week and today. She was confused with her medications and ended up not taking any high dose aspirin or ibuprofen for 2 days and subsequently developed acute chest pain. Got a dose of prednisone last night and doing better today. Can feed patient. Have patient ambulate. I will see patient back this afternoon and if doing ok I anticipate discharge home later today on a slow prednisone taper (20mg x7 days, 15mg x7 days, 10mg x 7 days, 5mg x 7 days, 2.5mg x 7 days). She is to continue aspirin 325mg 2 tabs 3x a day until the end of this week-when she has no more pills left from her original bottle. She is to start taking coumadin once she is done with the aspirin. She is to continue taking the colchicine 0.6mg daily for the next 3 months, she is to continue amiodarone 200mg daily until done with the colchicine. She does not need to take any ibuprofen. I will see her back in the office in 2-3 weeks. I will send her home with a typed out medication list since she is getting confused.
[2017-05-25] MEDS ORDERED: CYANOCOBALAMIN 500 MCG TAB (VIT B-12) PO SCH (09:00)
[2017-05-25] MEDS ORDERED: ASPIRIN 325 MG ECTAB PO SCH (09:00)
[2017-05-25] MEDS ORDERED: PANTOprazole SOD 40 MG TAB PO SCH (09:00)
[2017-05-25] MEDS ORDERED: AMIODARONE 200 MG TAB PO SCH (09:00)
[2017-05-25] MEDS ORDERED: ASCORBIC ACID 500 MG TAB PO SCH (09:00)
[2017-05-25] MEDS ORDERED: METOPROLOL SUCC 50MG EXT REL TAB PO SCH ×2 (09:00)
[2017-05-25] MEDS ORDERED: COLCHICINE 0.6 MG TAB PO SCH (09:00)
[2017-05-25] MEDS ORDERED: METHIMAZOLE 5 MG TAB PO SCH ×2 (09:00→21:00)
[2017-05-25] MEDS ORDERED: CEROVITE ADV FORMULA TAB PO SCH (09:00)
[2017-05-25] MEDS ORDERED: VITAMIN B COMPLEX TAB PO SCH (09:00)
--- NOTE | 2017-05-25 10:41 | ECHOCARDIOGRAM REPORT ---
*NOTICE TO RECEIVING CONSTITUTION PARTY AGENCY This information is strictly Confidential and protected under [place] law. [place] law prohibits you from making any further disclosure of this information unless further disclosure is expressly permitted by the written consent of the person to whom it pertains or is authorized by law. A general authorization for the release of medical or other information is not sufficient for this purpose. Hospital accepts no responsibility if the information is made available to any other person, INCLUDING THE PATIENT. Interpretation Summary * Name: ILEANA MOYER I Study Date: 05/25/2017 08:22 AM BP: 124/61 mmHg * Patient Location: 109 HR: 103 * : 1945 (M/d/yyyy) Gender: Female Height: 60 in * Age: 71 yrs Ethnicity: [place] Weight: 124 lb * Ordering Physician: Brandee Singer * Performed By: Sussy Newell RDCS * * Reason For Study: Pericarditis * BSA: 1.5 m2 * The study was technically adequate. * -- Conclusions -- * Moderate circumferential pericardial effusion. * Organization with fibrous strands noted apically. * There are no echocardiographic indications of cardiac tamponade. * Normal inferior vena cava size and collapsability with sniff indicates a normal right atrial pressure of 3 mmHg * Ejection Fraction = 60-65%. * No significant valvular pathology. * Compared to most recent study, pericardial effusion appears smaller and patient no longer tachycardic. Procedure Details * A complete two-dimensional transthoracic echocardiogram was performed (2D, M-mode, Doppler and color flow Doppler). Left Ventricle * The left ventricle is normal in size. * There is no thrombus. * There is normal left ventricular wall thickness. * Ejection Fraction = 60-65%. * Left ventricular systolic function is normal. * The left ventricular wall motion is normal. Right Ventricle * The right ventricle is normal size. * The right ventricular systolic function is normal as assessed by tricuspid annular plane systolic excursion (TAPSE) (normal >1.5 cm). Atria * The left atrial size is normal. * Right atrial size is normal. * There is no evidence of atrial septal defect, but resolution does not allow assessment for a patent foramen ovale. Mitral Valve * The mitral valve is normal. * There is no mitral valve stenosis. * Significant mitral regurgitation is absent. Tricuspid Valve * The tricuspid valve is normal. * There is no tricuspid stenosis. * There is trace tricuspid regurgitation. * Doppler findings do not suggest pulmonary hypertension. Aortic Valve * The aortic valve is trileaflet. * Aortic stenosis is absent. * There is no significant aortic regurgitation. Pulmonic Valve * The pulmonary valve is not well seen, but the Doppler examination is normal without significant regurgitation or stenosis. Great Vessels * The aortic root and proximal ascending aorta are normal sized. Pericardium/Pleural * Moderate circumferential pericardial effusion. Organization with fibrous strands noted apically. * There are no echocardiographic indications of cardiac tamponade. Great Vessels * Normal inferior vena cava size and collapsability with sniff indicates a normal right atrial pressure of 3 mmHg MMode 2D Measurements and Calculations IVSd 0.98 cm IVSs 1.1 cm LVIDd 3.4 cm LVIDs 2.4 cm LVPWd 0.96 cm LVPWs 1.3 cm IVS/LVPW 1.0 FS 29.8 % EDV(Teich) 48.9 ml ESV(Teich) 20.5 ml EF(Teich) 58.1 % EDV(cubed) 40.8 ml ESV(cubed) 14.1 ml EF(cubed) 65.5 % % IVS thick 10.1 % % LVPW thick 39.6 % LV mass(C)d 96.5 grams LV mass(C)dI 63.3 grams/m\S\2 LV mass(C)s 82.9 grams LV mass(C)sI 54.4 grams/m\S\2 SV(Teich) 28.4 ml SI(Teich) 18.7 ml/m\S\2 SV(cubed) 26.7 ml SI(cubed) 17.6 ml/m\S\2 Ao root diam 2.5 cm Ao root area 4.8 cm\S\2 ACS 1.6 cm LA dimension 3.0 cm LA/Ao 1.2 LVAd ap4 20.6 cm\S\2 LVLd ap4 7.1 cm EDV(MOD-sp4) 52.0 ml EDV(sp4-el) 50.9 ml LVAs ap4 9.5 cm\S\2 LVLs ap4 5.8 cm ESV(MOD-sp4) 14.2 ml ESV(sp4-el) 13.1 ml EF(MOD-sp4) 72.8 % EF(sp4-el) 74.3 % LVAd ap2 21.4 cm\S\2 LVLd ap2 7.1 cm EDV(MOD-sp2) 56.4 ml EDV(sp2-el) 55.0 ml LVAs ap2 10.4 cm\S\2 LVLs ap2 5.3 cm ESV(MOD-sp2) 18.1 ml ESV(sp2-el) 17.5 ml EF(MOD-sp2) 67.8 % EF(sp2-el) 68.3 % LVLd %diff -0.55 % EDV(MOD-bp) 54.3 ml LVLs %diff -10.55 % ESV(MOD-bp) 16.6 ml EF(MOD-bp) 69.4 % SV(MOD-sp4) 37.8 ml SI(MOD-sp4) 24.8 ml/m\S\2 SV(MOD-sp2) 38.2 ml SI(MOD-sp2) 25.1 ml/m\S\2 SV(MOD-bp) 37.7 ml SI(MOD-bp) 24.7 ml/m\S\2 SV(sp4-el) 37.8 ml SI(sp4-el) 24.8 ml/m\S\2 SV(sp2-el) 37.6 ml SI(sp2-el) 24.7 ml/m\S\2 Doppler Measurements and Calculations MV E max george 98.4 cm/sec MV A max george 95.8 cm/sec MV E/A 1.0 MV dec time 0.28 sec Ao V2 max 151.0 cm/sec Ao max PG 9.1 mmHg Ao max PG (full) 4.5 mmHg LV V1 max PG 4.7 mmHg LV V1 max 107.8 cm/sec PA V2 max 78.5 cm/sec PA max PG 2.5 mmHg TR max george 238.1 cm/sec
--- NOTE | 2017-05-25 12:38 | Progress Note ---
Internal Med Progress Note Date of Service: May 25, 2017. Provider Documentation: SUBJECTIVE: The patient is seen and examined in ICU. This is a 71-year-old female with history of recent pericardial effusion on medical management, history of A. fib status post ablation on 03/18/2017, tachybrady syndrome status post pacemaker placement on 03/22/2017, hypertension, hyperthyroidism She was admitted with with a diagnosis of pericarditis with a history of pericarditis and pericardial effusion before. She denies extremity pain as of today and she remains hemodynamically stable Does not have any chest pain palpitation and shortness of breath, any abdominal pain nausea vomiting, any fever chills or riders. OBJECTIVE: Vital Signs-as noted below Exam: General-no apparent distress Eyes-normal ENT-normal Neck-supple Lungs-clear to auscultate bilaterally without any pleural rub Heart-there is no pericardial friction rub Abdomen-benign, nontender, no organomegaly, bowel sounds present Extremities-no edema Neuro-alert awake and oriented 3 No focal sensory or motor deficit appreciated. Lab data as noted below. ASSESSMENT & PLAN: IDIOPATHIC PERICARDIAL EFFUSION /RECURRENT WITH PERICARDITIS: -Patient was admitted to [facility] on 05/09/2017 for acute pericarditis and large pericardial effusion was transferred to [facility] patient did not had any intervention/no drainage of fusion was done Medical management recommended and Xarelto was discontinued She was discharged on 05/13/2017 with colchicine , high dose aspirin 650 mg 3 times daily for 2 weeks Patient had no symptoms post discharge had an hospital follow-up with Dr Hobbs on 05/20/17 and the Patient was found to be doing well Echo on 05/20/2017 :: Showed pericardial effusion compared to previous study of 05/09/2017; has decreased in size Moderate circumferential pericardial effusion, more pronounced posteriorly. Tamponade is not present ECHO on 05/25/17:: Moderate circumferential pericardial effusion. * Organization with fibrous strands noted apically. * There are no echocardiographic indications of cardiac tamponade. * Normal inferior vena cava size and collapsability with sniff indicates a normal right atrial pressure of 3 mmHg * Ejection Fraction = 60-65%. * No significant valvular pathology. * Compared to most recent study, pericardial effusion appears smaller and patient no longer tachycardic. Case discussed with on-call cardiology Dr. Holley on admission Started on prednisone 50 mg daily and will taper Toradol IV 15 mg every 6 scheduled(maximum daily dose 60 mg) Remains stable in ICU without any symptoms Appreciate Cardiology input and recommendation::slow prednisone taper (20mg x7 days, 15mg x7 days, 10mg x 7 days, 5mg x 7 days, 2.5mg x 7 days). She is to continue aspirin 325mg 2 tabs 3x a day until the end of this week-when she has no more pills left from her original bottle. She is to start taking Coumadin once she is done with the aspirin. She is to continue taking the colchicine 0.6mg daily for the next 3 months, she is to continue amiodarone 200mg daily until done with the colchicine. She does not need to take any ibuprofen. I will see her back in the office in 2-3 weeks. No ACS Likely discharge this afternoon Prolonged QT Will discuss with the Guide Visitor before discharge HTN : Episode of hypotension noted in ER Patient remains asymptomatic On Toprol XL 50 mg daily(dose was recently increased during admission in [facility] for A. fib ) Toprol-XL dose reduced to 25 mg daily for borderline hypotension Continue close monitoring of hemodynamics HYPERTHYROIDISM: Continue to Tapazol/methimazole TSH within normal limit PAROXYSMAL AFIB : History of paroxysmal A. fib/atrial flutter Status post ablation in 03/2017 Started on amiodarone on 05/09/2017 due to recurrent PAF in setting of acute pericarditis Toprol XL dose reduced for hypotension Xarelto was discontinued recently for large pericardial effusion Was scheduled to start on Coumadin 5 mg daily on 05/29/2017 after discontinuing high-dose aspirin patient Patient is currently not on any anticoagulation HX OF TACHYBRADY SYNDROME : Status post permanent pacemaker placement FULL CODE DVT PROPHYLAXIS : Moderate to high risk Pharmacological anticoagulation avoided, patient may need emergent pericardiocentesis DISPOSITION : expected to be discharged home when medically stable Vital Signs: Date Time Temp Pulse Resp B/P (MAP) Pulse Ox O2 Delivery O2 Flow Rate FiO2 05/25/17 12:01 68 20 127/60 (82) 96 Room Air 05/25/17 12:01 Room Air 05/25/17 10:00 63 20 126/63 (84) 95 Room Air 05/25/17 08:01 86 14 108/69 (90) 93 05/25/17 08:00 95 Room Air 05/25/17 08:00 79 11 94 05/25/17 08:00 80 18 108/69 (82) 95 Room Air 05/25/17 07:01 87 15 113/83 (89) 94 05/25/17 07:00 88 16 94 05/25/17 06:00 86 11 112/71 (85) 93 Room Air 05/25/17 06:00 86 11 93 05/25/17 05:00 60 10 93 05/25/17 04:00 72 11 124/61 (82) 93 Room Air 05/25/17 04:00 72 11 93 05/25/17 04:00 Room Air 05/25/17 03:00 70 13 93 05/25/17 02:00 64 11 92 05/25/17 02:00 64 11 112/57 (75) 92 Room Air 05/25/17 01:00 70 14 93 05/25/17 00:01 66 18 117/64 (81) 94 Room Air 05/25/17 00:01 66 18 117/64 (84) 94 05/24/17 23:59 Room Air 05/24/17 23:00 37.4 69 16 116/61 93 Room Air 05/24/17 22:16 67 17 111/65 93 Room Air 05/24/17 21:33 65 20 107/54 91 Room Air 05/24/17 20:53 67 20 89/48 92 Room Air 05/24/17 20:14 63 05/24/17 19:33 96 Room Air 05/24/17 19:19 36.8 74 16 125/67 95 Room Air Lab Results: Results Past 24 Hours Test 05/24/17 19:30 05/25/17 00:33 05/25/17 03:35 05/25/17 09:50 Range/Units White Blood Count 13.35 11.54 4.8-10.8 K/uL Red Blood Count 4.08 3.86 4.2-5.4 M/uL Hemoglobin 13.4 12.8 12.0-16.0 g/dL Hematocrit 39.7 37.2 37-47 % Mean Corpuscular Volume 97.3 96.4 80-100 fL Mean Corpuscular Hemoglobin 32.8 33.2 25-34 pg Mean Corpuscular Hemoglobin Concent 33.8 34.4 32-36 g/dl Platelet Count 240 200 130-400 K/uL Mean Platelet Volume 10.5 10.5 7.4-10.4 fL Neutrophils (%) (Auto) 73.3 % Lymphocytes (%) (Auto) 12.8 % Monocytes (%) (Auto) 10.1 % Eosinophils (%) (Auto) 3.4 % Basophils (%) (Auto) 0.3 % Neutrophils # (Auto) 9.77 1.4-6.5 K/uL Lymphocytes # (Auto) 1.71 1.2-3.4 K/uL Monocytes # (Auto) 1.35 0.11-0.59 K/uL Eosinophils # (Auto) 0.46 0-0.5 K/uL Basophils # (Auto) 0.04 0-0.2 K/uL RDW Standard Deviation 43.9 44.1 36.4-46.3 fL RDW Coefficient of Variation 12.5 12.6 11.5-14.5 % Immature Granulocyte % (Auto) 0.1 % Immature Granulocyte # (Auto) 0.02 0.00-0.02 K/uL Erythrocyte Sedimentation Rate 3 0-21 mm/hr Prothrombin Time 10.2 9.0-12.0 SECONDS Prothromb Time International Ratio 1.0 0.9-1.1 Activated Partial Thromboplast Time 24.4 21.0-31.0 SECONDS Partial Thromboplastin Ratio 0.9 Sodium Level 134 132 136-145 mmol/L Potassium Level 3.5 4.8 3.5-5.1 mmol/L Chloride Level 100 98 98-107 mmol/L Carbon Dioxide Level 26 29 21-32 mmol/L Anion Gap 8.0 5.0 3-11 mmol/L Blood Urea Nitrogen 9 13 7-18 mg/dl Creatinine 0.69 0.76 0.60-1.20 mg/dl Est Creatinine Clear Calc Drug Dose 59.8 53.7 ml/min Estimated GFR () 102.2 92.1 Estimated GFR (Non- 88.2 79.5 BUN/Creatinine Ratio 13.0 16.7 10-20 Random Glucose 120 172 70-99 mg/dl Calcium Level 8.6 9.0 8.5-10.1 mg/dl Total Bilirubin 0.3 0.2-1 mg/dl Direct Bilirubin < 0.1 0-0.2 mg/dl Aspartate Amino Transf (AST/SGOT) 19 15-37 U/L Alanine Aminotransferase (ALT/SGPT) 24 12-78 U/L Alkaline Phosphatase 116 45-117 U/L Troponin I < 0.015 < 0.015 < 0.015 0-0.045 ng/ml C-Reactive Protein 0.78 0-0.29 mg/dl Pro-B-Type Natriuretic Peptide 392 0-900 pg/ml Total Protein 7.3 6.4-8.2 gm/dl Albumin 3.9 3.4-5.0 gm/dl Lipase 119 73-393 U/L Thyroid Stimulating Hormone (TSH) 2.160 0.300-4.500 uIu/ml Bedside Glucose 203 70-90 mg/dl Magnesium Level 2.1 1.8-2.4 mg/dl Microbiology Results 05/25/17 MRSA DNA Surveillance Screen - Final, Complete Specimen Negative for MRSA by DNA Probe
[2017-05-25] MEDS ORDERED: PRD5 PO (16:08)
[2017-05-25] MEDS ORDERED: PRT40 PO (16:08)
[2017-05-25] MEDS ORDERED: NTRSLP4 SL (16:08)
--- NOTE | 2017-05-25 16:10 | Discharge Instructions ---
Discharge Instructions Date of Service May 25, 2017. Admission Reason for Admission: Pericardial Effusion Discharge Discharge Diagnosis / Problem: Acute Pericarditis,PAF Discharge Goals Goal(s): Prevent Disease Progression Activity Recommendations Activity Limitations: resume your previous activity . Instructions / Follow-Up Instructions / Follow-Up Dr Goldstein on 05/30/17 at 11:05 AM.Please keep appointment/Make with the Cardiology Current Hospital Diet Patient's current hospital diet: AHA Diet (Heart Healthy) Discharge Diet Recommended Diet: AHA Diet (Heart Healthy) Pending Studies Studies pending at discharge: no Laboratory Results Hemoglobin A1c Test 05/08/17 20:17 Range/Units Estimated Average Glucose 100 mg/dl Hemoglobin A1c 5.1 4.5-5.6 % Medical Emergencies . Who to Call and When: Medical Emergencies: If at any time you feel your situation is an emergency, please call 911 immediately. . Non-Emergent Contact Non-Emergency issues call your: Primary Care Provider . Past History Medical & Surgical History: (1) Pericarditis (2) Pleuritic chest pain (3) Pericardial effusion (4) Tachycardia (5) Status post ablation of atrial fibrillation . "Provider Documentation" section prepared by Annalise Dong. .
--- NOTE | 2017-05-25 18:05 | Discharge Summary ---
Discharge Summary Date of Service May 25, 2017. Discharge Summary Admission Date: May 24, 2017 at 21:46 Discharge Date: May 25, 2017 Discharge Disposition: Home Principal Diagnosis: Acute Pericarditis,PAF Secondary Diagnoses/Problems: Please see the H&P and Hospital Progress note Consultations: Cardiology Medication Reconciliation New Medications: Prednisone (Prednisone) 5 Mg Tab 5 MG PO UD, #1 Nitroglycerin (Nitrostat) 0.4 Mg/1 Tab Subl 0.4 MG SL UD PRN for Chest Pain for 30 Days, #25 Pantoprazole (Pantoprazole Sodium) 40 Mg Tab 40 MG PO QAM for 30 Days, #30 TAB Continued Medications: Amiodarone Hcl (Cordarone) 200 Mg Tab 200 MG PO DAILY, TAB Ascorbic Acid (Ascorbic Acid) 1,000 Mg Tab 1000 MG PO DAILY Aspirin (Aspirin) 325 Mg Tab 325 MG PO DAILY for 14 Days Start Coumadin on Tuesday and stop Aspirin on Tuesday. B-Complex Vitamins (Vitamin B Complex) 1 Tab Tab 1 TAB PO DAILY Colchicine (Colchicine) 0.6 Mg Tab 0.6 MG PO DAILY, TAB PRESCRIBED 05/11/2017, TAKE ONE TABLET DAILY FOR 3 MONTHS Cyanocobalamin (Vitamin B12) 1,000 Mcg Tab 1000 MCG PO DAILY Methimazole (Tapazole) 5 Mg Tab 5 MG PO QAM Methimazole (Tapazole) 5 Mg Tab 2.5 MG PO QPM Metoprolol Succ (Toprol Xl) (Toprol-Xl) 25 Mg Tabcr 25 MG PO DAILY, TAB Multiple Vitamins W/ Minerals (Centrum Silver 50+Women) 1 Tab Tab 1 TAB PO DAILY Admission Information HPI (per Admitting provider): This is a 71-year-old female with history of recent pericardial effusion on medical management, history of A. fib status post ablation on 03/18/2017, tachybrady syndrome status post pacemaker placement on 03/22/2017, hypertension, hyperthyroidism Presents to [facility] ER today for ongoing left-sided pleuritic chest pain. Patient mentions that she she woke up approximately 8 AM today felt discomfort in her throat feeling like sore throat, over the period of the day the pain progressed down to her left side of chest. She was having sharp chest pain when taking deep breath, pain was worse with lying flat, better on sitting up. Had shortness of breath/dyspnea on exertion. Did not had any syncope No reports of fever or chills She mentions she was feeling good yesterday All her symptoms started abruptly this morning In ER, she continues to have chest discomfort, pain 8 of the 10 when taking deep breath, improves to 4 out of 10 with shallow breath. She was briefly hypotensive systolic 88 Vitals on on arrival to ER at 19: 19 Blood pressure was 125/67, pulse oximetry 95% on room air Patient became hypotensive BP 88/48 at 20: 53 Improvement of hypotension BP 111/65 at 2216 Patient denies of any dizziness or syncopal episode while in the ER Past Medical/Surgical History Medical Problems: (1) Atrial fibrillation (2) Atrial flutter (3) Bradyarrhythmia (4) Elevated troponin (5) Pericardial effusion (6) Pericarditis (7) Tachycardia Surgical Problems: (1) Status post ablation of atrial fibrillation Family History FH: atrial fibrillation SISTER Social History Smoking Status: Never Smoker Allergies Coded Allergies: BEE STING (Unverified Allergy, Intermediate, ., 05/08/17) Home Medications Scheduled Amiodarone Hcl (Cordarone), 200 MG PO DAILY Ascorbic Acid (Ascorbic Acid), 1,000 MG PO DAILY Aspirin (Aspirin), 650 MG PO TID B-Complex Vitamins (Vitamin B Complex), 1 TAB PO DAILY Colchicine (Colchicine), 0.6 MG PO DAILY Cyanocobalamin (Vitamin B12), 1,000 MCG PO DAILY Methimazole (Tapazole), 5 MG PO QAM Methimazole (Tapazole), 2.5 MG PO QPM Metoprolol Succ (Toprol Xl) (Toprol-Xl), 50 MG PO DAILY Multiple Vitamins W/ Minerals (Centrum Silver 50+Women), 1 TAB PO DAILY Review of Systems Constitutional: No fever, No chills, No sweats, No weight loss, No weakness, No fatigue, No problem reported Eyes: No worsening of vision, No eye pain, No redness, No discharge, No diplopia, No problem reported ENT: No hearing loss, No unusual epistaxis, No nasal symptoms, No sore throat, No tinnitus, No dental problems, No trouble swallowing, No problem reported Respiratory: + shortness of breath, + dyspnea on exertion, + dyspnea at rest Cardiovascular: + chest pain (Sharp pain with taking deep breath ), + orthopnea Abdomen: No pain, No nausea, No vomiting, No diarrhea, No constipation, No GI bleeding, No problem reported Musculoskeletal: No joint pain, No muscle pain, No swelling, No calf pain, No problem reported Neurologic: No memory loss, No paralysis, No weakness, No numbness/tingling, No vertigo, No balance problems, No problem reported Psychiatric: No depression symptoms, No anhedonism, No anxiety, No insomnia, No substance abuse, No problem reported Physical Ex - H&P Physical Exam Vital Signs Date Time Temp Pulse Resp B/P (MAP) Pulse Ox O2 Delivery O2 Flow Rate FiO2 05/24/17 22:16 67 17 111/65 93 Room Air 05/24/17 21:33 65 20 107/54 91 Room Air 05/24/17 20:53 67 20 89/48 92 Room Air 05/24/17 20:14 63 05/24/17 19:33 96 Room Air 05/24/17 19:19 36.8 74 16 125/67 95 Room Air General Appearance: + moderate distress (Due to pleuritic chest pain) Head: normocephalic, atraumatic Eyes: normal inspection, PERRL, EOMI, sclerae normal ENT: hearing grossly normal Neck: thyroid normal, no carotid bruits, trachea midline, + JVD (Positive JVD noted more pronounced on the left side) Respiratory/Chest: chest non-tender, lungs clear, normal breath sounds, no respiratory distress Cardiovascular: regular rate, rhythm, no edema, + pertinent finding (Could not appreciate any pericardial rub) Abdomen/GI: normal bowel sounds, non tender, soft Extremities/Musculoskelatal: normal inspection, no pedal edema Neurologic/Psych: alert, oriented x 3, + pertinent finding (Anxious) Skin: normal color, warm/dry, no rash Diagnostics - H&P Diagnostics Laboratory Results Results Past 24 Hours Test 05/24/17 19:30 Range/Units White Blood Count 13.35 4.8-10.8 K/uL Red Blood Count 4.08 4.2-5.4 M/uL Hemoglobin 13.4 12.0-16.0 g/dL Hematocrit 39.7 37-47 % Mean Corpuscular Volume 97.3 80-100 fL Mean Corpuscular Hemoglobin 32.8 25-34 pg Mean Corpuscular Hemoglobin Concent 33.8 32-36 g/dl Platelet Count 240 130-400 K/uL Mean Platelet Volume 10.5 7.4-10.4 fL Neutrophils (%) (Auto) 73.3 % Lymphocytes (%) (Auto) 12.8 % Monocytes (%) (Auto) 10.1 % Eosinophils (%) (Auto) 3.4 % Basophils (%) (Auto) 0.3 % Neutrophils # (Auto) 9.77 1.4-6.5 K/uL Lymphocytes # (Auto) 1.71 1.2-3.4 K/uL Monocytes # (Auto) 1.35 0.11-0.59 K/uL Eosinophils # (Auto) 0.46 0-0.5 K/uL Basophils # (Auto) 0.04 0-0.2 K/uL RDW Standard Deviation 43.9 36.4-46.3 fL RDW Coefficient of Variation 12.5 11.5-14.5 % Immature Granulocyte % (Auto) 0.1 % Immature Granulocyte # (Auto) 0.02 0.00-0.02 K/uL Erythrocyte Sedimentation Rate 3 0-21 mm/hr Prothrombin Time 10.2 9.0-12.0 SECONDS Prothromb Time International Ratio 1.0 0.9-1.1 Activated Partial Thromboplast Time 24.4 21.0-31.0 SECONDS Partial Thromboplastin Ratio 0.9 Sodium Level 134 136-145 mmol/L Potassium Level 3.5 3.5-5.1 mmol/L Chloride Level 100 98-107 mmol/L Carbon Dioxide Level 26 21-32 mmol/L Anion Gap 8.0 3-11 mmol/L Blood Urea Nitrogen 9 7-18 mg/dl Creatinine 0.69 0.60-1.20 mg/dl Est Creatinine Clear Calc Drug Dose 59.8 ml/min Estimated GFR () 102.2 Estimated GFR (Non- 88.2 BUN/Creatinine Ratio 13.0 10-20 Random Glucose 120 70-99 mg/dl Calcium Level 8.6 8.5-10.1 mg/dl Total Bilirubin 0.3 0.2-1 mg/dl Direct Bilirubin < 0.1 0-0.2 mg/dl Aspartate Amino Transf (AST/SGOT) 19 15-37 U/L Alanine Aminotransferase (ALT/SGPT) 24 12-78 U/L Alkaline Phosphatase 116 45-117 U/L Troponin I < 0.015 0-0.045 ng/ml C-Reactive Protein 0.78 0-0.29 mg/dl Pro-B-Type Natriuretic Peptide 392 0-900 pg/ml Total Protein 7.3 6.4-8.2 gm/dl Albumin 3.9 3.4-5.0 gm/dl Lipase 119 73-393 U/L Thyroid Stimulating Hormone (TSH) 2.160 0.300-4.500 uIu/ml Diagnostic Radiology CHEST ONE VIEW PORTABLE HISTORY: Atypical CHEST PAIN COMPARISON: Chest 05/08/2017. FINDINGS: The lungs are clear. The heart is mildly enlarged. This has slightly increased in size. No pleural effusions. No pneumothorax. 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 Left-sided dual-chamber pacemaker. The leads are unchanged in position. IMPRESSION: Mild cardiomegaly which is slightly increased in size. Otherwise, no acute process within the chest. Impression - H&P Impression Assessment and Plan IDIOPATHIC PERICARDIAL EFFUSION /RECURRENT : -Patient was admitted to [facility] on 05/09/2017 for acute pericarditis and large pericardial effusion was transferred to [facility] patient did not had any intervention/no drainage of fusion was done Medical management recommended Xarelto was discontinued She was discharged on 05/13/2017 with colchicine , high dose aspirin 650 mg 3 times daily for 2 weeks Patient had no symptoms post discharge had an hospital follow-up with Dr Hobbs on 05/20/17 Patient was found to be doing well Echo on 05/20/2017 showed pericardial effusion compared to previous study of 2017; has decreased in size Moderate circumferential pericardial effusion, more pronounced posteriorly. Tamponade is not present Patient presents today with-persistent pleuritic chest pain, shortness of breath , orthopnea Chest x-ray shows globular heart, increased size from previous image inflammatory markers are unremarkable : Is okay it is done discussed with patient and his ESR 3 /mild elevation of pro- calcitonin 0.78 Case discussed with on-call cardiology Dr. Mo Patient will be admitted to ICU for close observation Started on prednisone 50 mg daily Toradol IV 15 mg every 6 scheduled(maximum daily dose 60 mg) Resting echo to assess pericardial effusion Plan of care discussed with ICU team- HTN : episode of hypotension noted in ER Patient remains asymptomatic On Toprol XL 50 mg daily(dose was recently increased during admission in [facility] for A. fib ) Toprol-XL dose reduced to 25 mg daily for borderline hypotension Continue close monitoring of hemodynamics HYPERTHYROIDISM: Continue to Tapazol/methimazole TSH within normal limit PAROXYSMAL AFIB : History of paroxysmal A. fib/atrial flutter Status post ablation in 03/2017 Started on amiodarone on 05/09/2017 due to recurrent PAF in setting of acute pericarditis Toprol XL dose reduced for hypotension Xarelto was discontinued recently for large pericardial effusion Was scheduled to start on Coumadin 5 mg daily on 05/29/2017 after discontinuing high-dose aspirin patient Patient is currently not on any anticoagulation HX OF TACHYBRADY SYNDROME : Status post permanent pacemaker placement FULL CODE DVT PROPHYLAXIS : moderate to high risk Pharmacological anticoagulation avoided, patient may need emergent pericardiocentesis DISPOSITION : expected to be discharged home when medically stable Level of Care Critical Care Resuscitation Status FULL RESUSCITATION VTE Prophylaxis Risk Level: Moderate Given or contraindicated: Jake Stockings, SCD's Additional Copies To Nagi Drew M.D. Zazzali, Kathleen M., D.O. Physical Exam (per Admitting): General Appearance: + moderate distress (Due to pleuritic chest pain) Head: normocephalic, atraumatic Eyes: normal inspection, PERRL, EOMI, sclerae normal ENT: hearing grossly normal Neck: thyroid normal, no carotid bruits, trachea midline, + JVD (Positive JVD noted more pronounced on the left side) Respiratory/Chest: chest non-tender, lungs clear, normal breath sounds, no respiratory distress Cardiovascular: regular rate, rhythm, no edema, + pertinent finding (Could not appreciate any pericardial rub) Abdomen/GI: normal bowel sounds, non tender, soft Extremities/Musculoskelatal: normal inspection, no pedal edema Neurologic/Psych: alert, oriented x 3, + pertinent finding (Anxious) Skin: normal color, warm/dry, no rash Hospital Course IDIOPATHIC PERICARDIAL EFFUSION /RECURRENT WITH PERICARDITIS: -Patient was admitted to [facility] on 05/09/2017 for acute pericarditis and large pericardial effusion was transferred to [facility] patient did not had any intervention/no drainage of fusion was done Medical management recommended and Xarelto was discontinued She was discharged on 05/13/2017 with colchicine , high dose aspirin 650 mg 3 times daily for 2 weeks Patient had no symptoms post discharge had an hospital follow-up with Dr Hobsb on 05/20/17 and the Patient was found to be doing well Echo on 05/20/2017 :: Showed pericardial effusion compared to previous study of 05/09/2017; has decreased in size Moderate circumferential pericardial effusion, more pronounced posteriorly. Tamponade is not present ECHO on 05/25/17:: Moderate circumferential pericardial effusion. * Organization with fibrous strands noted apically. * There are no echocardiographic indications of cardiac tamponade. * Normal inferior vena cava size and collapsability with sniff indicates a normal right atrial pressure of 3 mmHg * Ejection Fraction = 60-65%. * No significant valvular pathology. * Compared to most recent study, pericardial effusion appears smaller and patient no longer tachycardic. Case discussed with on-call cardiology Dr. Holley on admission Started on prednisone 50 mg daily and will taper Toradol IV 15 mg every 6 scheduled(maximum daily dose 60 mg) Remains stable in ICU without any symptoms Appreciate Cardiology input and recommendation::slow prednisone taper (20mg x7 days, 15mg x7 days, 10mg x 7 days, 5mg x 7 days, 2.5mg x 7 days). She is to continue aspirin 325mg 2 tabs 3x a day until the end of this week-when she has no more pills left from her original bottle. She is to start taking Coumadin once she is done with the aspirin. She is to continue taking the colchicine 0.6mg daily for the next 3 months, she is to continue amiodarone 200mg daily until done with the colchicine. She does not need to take any ibuprofen. I will see her back in the office in 2-3 weeks. No ACS Likely discharge this afternoon Prolonged QT Will discuss with the [facility] before discharge HTN : Episode of hypotension noted in ER Patient remains asymptomatic On Toprol XL 50 mg daily(dose was recently increased during admission in [facility] for A. fib ) Toprol-XL dose reduced to 25 mg daily for borderline hypotension Continue close monitoring of hemodynamics HYPERTHYROIDISM: Continue to Tapazol/methimazole TSH within normal limit PAROXYSMAL AFIB : History of paroxysmal A. fib/atrial flutter Status post ablation in 03/2017 Started on amiodarone on 05/09/2017 due to recurrent PAF in setting of acute pericarditis Toprol XL dose reduced for hypotension Xarelto was discontinued recently for large pericardial effusion Was scheduled to start on Coumadin 5 mg daily on 05/29/2017 after discontinuing high-dose aspirin patient Patient is currently not on any anticoagulation HX OF TACHYBRADY SYNDROME : Status post permanent pacemaker placement FULL CODE DVT PROPHYLAXIS : Moderate to high risk Pharmacological anticoagulation avoided, patient may need emergent pericardiocentesis DISPOSITION : expected to be discharged home when medically stable Total time spent on discharge =35 minutes This includes examination of the patient, discharge planning, medication reconciliation, and communication with other providers. Discharge Instructions Date of Service May 25, 2017. Admission Reason for Admission: Pericardial Effusion Discharge Discharge Diagnosis / Problem: Acute Pericarditis,PAF Discharge Goals Goal(s): Prevent Disease Progression Activity Recommendations Activity Limitations: resume your previous activity . Instructions / Follow-Up Instructions / Follow-Up Dr Goldstein on 05/30/17 at 11:05 AM.Please keep appointment/Make with the Cardiology Current Hospital Diet Patient's current hospital diet: AHA Diet (Heart Healthy) Discharge Diet Recommended Diet: AHA Diet (Heart Healthy) Pending Studies Studies pending at discharge: no Laboratory Results Hemoglobin A1c Test 05/08/17 20:17 Range/Units Estimated Average Glucose 100 mg/dl Hemoglobin A1c 5.1 4.5-5.6 % Medical Emergencies . Who to Call and When: Medical Emergencies: If at any time you feel your situation is an emergency, please call 911 immediately. . Non-Emergent Contact Non-Emergency issues call your: Primary Care Provider . Past History Medical & Surgical History: (1) Pericarditis (2) Pleuritic chest pain (3) Pericardial effusion (4) Tachycardia (5) Status post ablation of atrial fibrillation . "Provider Documentation" section prepared by Annalise Dong. . <Electronically signed by Annalise Dong M.D.> Signed: 05/25/17 1617 Additional Copies To Donaldo Goldstein D.O.
--- NOTE | 2017-05-25 19:52 | CARDIOLOGY CONSULTATION ---
DATE OF CONSULTATION: 05/25/2017 REASON FOR CONSULTATION: Chest pain. HISTORY OF PRESENT ILLNESS: This is a 71-year-old female who I know very well, I just actually saw her in the office 5 days ago. She has a history of paroxysmal atrial fibrillation and atrial flutter in which she underwent a PVI ablation in [place] along with the CTI line by Dr. Matamoros on March 2017 and she was on Xarelto, at that time did not tolerate sotalol. She a couple days later though ended up in [facility] due to tachybrady syndrome and got a His bundle pacemaker on 03/22/2017, performed by me without any complications. Her other past medical history of hypertension and hyperthyroidism. Her CHADS2-VASc score is 3 for female age and hypertension. She was doing well and then on May 09 ended up in [facility] with chest pains and was diagnosed with acute pericarditis as well as a moderate size pericardial effusion. She ultimately was transferred to [place] and the pericardial effusion never needed to be tapped and she was discharged home on colchicine as well as high dose aspirin and her Xarelto was stopped. I saw her on Tuesday in the office and she was doing much better and her repeat echo looked a lot better compared to the one a week prior when she was in the hospital. She apparently was still confused with her medicines. When I saw her last Tuesday, I told her to continue the aspirin, continue the colchicine, decrease the amiodarone to 200 a day and then she would start Coumadin when she was done with the 2 weeks of high dose aspirin. She was apparently prescribed ibuprofen and omeprazole had the bottle of pills but was this is not on her discharge and so she got confused of whether what she should be taking. She contacted her primary care physician and ultimately somehow with more confusion she had not taken any ibuprofen or aspirin for 2 days prior to this admission, which most likely is why she presented with all of a sudden of chest pain. She got a dose of prednisone 50 mg last night and this morning she is feeling much better. She had a repeat echocardiogram that showed the effusion is stable compared to the repeat in my office 5 days ago and obviously is much better than the one on initial presentation earlier this month. She denies any shortness of breath. Denies any further chest pains. No lightheadedness, dizziness, near syncopal episodes. No palpitations. PAST SURGICAL HISTORY: Pacemaker in March 2017 and an aFib as well as a flutter ablation in March 2017. PAST MEDICAL HISTORY: As noted above. ALLERGIES: BEE STINGS. MEDICATIONS: Amiodarone; high dose aspirin 325 mg 2 tabs 3 times a day for 2 weeks; however, she was not taken that for a couple of days; colchicine, vitamin B12, Tapazole, Toprol 25 mg daily; Prilosec; however, I do not think she was taking this and multivitamin. SOCIAL HISTORY: She is and is a former smoker, no alcohol. FAMILY HISTORY: Noncontributory. REVIEW OF SYSTEMS: All other 10 point review of systems reviewed and are essentially negative at this time. See HPI for pertinent positives. PHYSICAL EXAMINATION: VITAL SIGNS: Heart rate is 86, respirations 14, blood pressure 108/69, and oxygen saturations 93% on room air. GENERAL: She is awake, alert and oriented x3, no acute distress, sitting reclined in the bed comfortably. HEENT: Normocephalic, atraumatic. Extraocular motions intact. Sclerae is nonicteric. Mucous membranes moist. NECK: Supple, no carotid bruits appreciated. No JVD. Carotid upstrokes normal. CARDIOVASCULAR: Normal S1, S2, regular rate and rhythm, no murmur appreciated. No palpable heave or thrill. PULMONARY: Clear to auscultation bilaterally. No wheezes, rales or rhonchi. ABDOMEN: Soft, nontender. EXTREMITIES: No clubbing or cyanosis of bilateral fingers. No edema in bilateral extremities. NEUROLOGIC: Grossly intact. SKIN: Grossly intact. PERTINENT TESTING: Echocardiogram done this morning is a moderate circumferential pericardial effusion. No evidence of tamponade, some organized fibrinous strands at the apex, ejection fraction is preserved at 60-65%, the effusion is definitely smaller than on prior study that was done in our hospital 3 weeks ago. EKG on admission - A paced 89 beats per minute, ventricular sensed. Repeat EKG this morning reading aFib at 88 beats per minute and hard to say. Chest x-ray - mild cardiomegaly. LABORATORY STUDIES: Have been stable on a CBC - WBC is 11.5, hemoglobin 12.8, hematocrit 37.2, and platelets 200. Chemistry: Sodium 132, potassium 4.8, chloride 97, carbon dioxide 29, BUN 13, creatinine 0.76, glucose 172, calcium 9, magnesium 2.1. TSH 2.16, alkaline phosphatase 116, AST 19, ALT 24, total protein 7.3, albumin 3.9. Troponins negative x2. IMPRESSION: 1. Chest pain secondary to chronic pericarditis where she had been off her aspirin and ibuprofen for 2 days, by mistake. 2. Recent acute pericarditis with a pericardial effusion on 05/09/2017, no intervention needed and effusion is getting better. Pericarditis is improved with high dose of non-steroidal anti-inflammatory drugs. 3. Tachybrady syndrome, history of a His bundle pacemaker on 03/22/2017. 4. Paroxysmal atrial fibrillation and flutter status post pulmonary vein isolation ablation in [place] along with the CTI line by Dr. Matamoros, a few days the pacemaker in March 2017, previously on Xarelto and sotalol, currently not on any. Anticoagulation secondary to the pericardial effusion, is on amiodarone that was started on 05/09/2017 due to recurrent paroxysmal atrial fibrillation while she was having pericarditis. 5. Hypertension. 6. Hypothyroidism. PLAN: The patient has ambulated and is feeling better after the dose of prednisone she got yesterday. She probably went into an acute chest pain due to missing her high-dose aspirin and since she was confused about all of her medications. I wrote down exactly the patient should be discharged home on, amiodarone 200 a day, colchicine 0.6 mg a day for the next 3 months. She should continue aspirin 325 mg a day for the next week and then start Coumadin 5 days from now, and she has a followup in our Coumadin clinic a week from now. She should start a slow prednisone taper 20 mg a day for 7 days followed then by 15 mg a day for 7 days followed then by 10 mg a day for 7 days followed then by 5 mg a day for 7 days followed then by 2.5 mg a day for 7 days. From my standpoint, she is okay to be discharged home. We will arrange for her to see me in the office in about 2 weeks after discharge.
== END 2017-05-25 17:30 | disposition home or self-care (01) | DRG 316 ==
LOC: C.EDB 19:14 → C.2T 21:46 → ENRESERV 22:09 → C.MSICU 23:19
PROVIDERS: ADMIT Hospitalist; ATTEND Internal Medicine
DX: I31.9 Disease of pericardium, unspecified (principal); E05.90 Thyrotoxicosis, unspecified without thyrotoxic crisis or storm; I48.0 Paroxysmal atrial fibrillation; I10 Essential (primary) hypertension; I45.81 Long QT syndrome; Z79.82 Long term (current) use of aspirin; Z91.030 Bee allergy status; Z95.0 Presence of cardiac pacemaker; Z82.49 Family history of ischemic heart disease and other diseases of the circulatory system